=== PATIENT | female | born 1950 | race Caucasian/White ===

== ENCOUNTER 2023-04-30 08:55 | Outpatient (OUT) | payer MEDICARE, OTHER, SELFPAY ==
--- NOTE | 2023-04-30 | MM_ITS ---
Patient Name: JOSE ALBERTO RAO MR#: [id number] : 1950 Exam Date: 04/30/2023 Ordering Doctor: DR Jaqueline Sierra M.D. RADIOLOGY REPORT PROCEDURE: MM TOMOSYNTHESIS SCREENING BI COMPARISON: MG MAMM SCREEN 3D [place] CAD, 09/24/2020. MG MAMM SCREEN [place] W CAD, 04/19/2018. MG MAMM [place] SCRN W CAD DIG, 07/05/2015. MG MAMM [place] SCRN W CAD DIG, 08/10/2013. INDICATIONS: Screening for malignant neoplasm Calculator Name NCI Breast Cancer Risk Assessment Tool 5 Year Breast Cancer Risk 1.30% Lifetime Breast Cancer Risk 3.00% Personal Breast Cancer No Personal Ovarian Cancer No Treatments None Family Cancers None LOCATION: [facility] BREAST COMPOSITION: Heterogeneously dense,which may obscure small masses. FINDINGS: DIAGNOSTIC CATEGORY 2--BENIGN FINDING: RIGHT BREAST: No significant suspicious finding. Scattered benign-appearing calcifications are present. No significant change has occurred. LEFT BREAST: No significant suspicious finding. Scattered benign-appearing calcifications are present. No significant change has occurred. RECOMMENDATIONS: ROUTINE MAMMOGRAM AND CLINICAL EVALUATION IN 12 MONTHS. PLEASE NOTE: A NORMAL MAMMOGRAM DOES NOT EXCLUDE THE POSSIBILITY OF BREAST CANCER. A CLINICALLY SUSPICIOUS PALPABLE LUMP SHOULD BE BIOPSIED. Dictated by: Waqar Phipps M.D. on 04/30/2023 at 11:56 Approved by: Waqar Phipps M.D. on 04/30/2023 at 12:00
== END 2023-04-30 08:56 | disposition home or self-care (01) ==
LOC: MAMMO 08:55
PROVIDERS: PCP Family Medicine; Visit Provider Family Medicine
DX: Z12.31 Encounter for screening mammogram for malignant neoplasm of breast (principal)
CPT/HCPCS: 77063; 77067

== ENCOUNTER 2024-12-06 10:25 | Outpatient (OUT) | payer MEDICARE, OTHER, SELFPAY ==
[2024-12-06 10:45] LABS: Hematocrit 36.4 % (36.0-48.0); Hemoglobin 12.6 g/dL (12.0-16.0); Mean Corpuscular HGB Conc 34.6 g/dL (29.9-35.2); Mean Corpuscular Hemoglobin 32.7 pg (26.7-34.0); Mean Corpuscular Volume 94.5 fL (81.0-99.0); Mean Platelet Volume 10.3 fL (9.5-13.5); Platelet Count 176 10^3/uL (150-450); Red Blood Count 3.85 10^6/uL (4.20-5.40); Red Cell Distribution Width 12.5 % (11.0-15.0); White Blood Count 12.9 10^3/uL (4.0-11.0)
--- OUTSIDE RECORDS SUMMARY | 2024-12-06 10:49 | XMS_ITS | CCD ---
Author Organization [facility] Care Team Providers Care Etcher Enameling Name Role Phone Jaqueline Charles MD Primary Care Provider MELVIN, DR JAQUELINE Lucas Consulting Unavailable CHARLES, DR JAQUELINE Lucas Primary Care Unavailable MELVIN, DR JAQUELINE Lucas Admitting Unavailable CHARLES, DR JAQUELINE Lucas Attending Unavailable YEHUDA REYES Consulting Unavailable MELVIN, DR JAQUELINE Lucas Primary Care Unavailable MELVIN, DR JAQUELINE Lucas Admitting Unavailable CHARLES, DR JAQUELINE Lucas Attending Unavailable CHARLES, DR JAQUELINE Lucas Consulting Unavailable MELVIN, DR JAQUELINE Lucas Primary Care Unavailable CHARLES, DR JAQUELINE Lucas Admitting Unavailable ZIJARED, DR PACO Leigh Consulting Unavailable MELVIN, DR JAQUELINE Lucas Attending Unavailable MELVIN, DR JAQUELINE Lucas Consulting Unavailable Jaqueline Charles Unavailable Jaqueline Charles MD Primary Care Provider SHANNA VICENTE Attending Unavailable JAQUELINE CHARLES Primary Care Unavailable JAQUELINE CHARLES Primary Care Unavailable Jaqueline Charles MD Primary Care Provider LEW ALEXANDER Referring Unavailable LEW ALEXANDER Attending Unavailable Corky CASTRO Attending Unavailable Allergies Allergy Classification Reported Allergen(s) Allergy Type Date of Onset Reaction(s) Facility (12 sources) Fish; Translations: [FISH CONTAINING PRODUCTS] Propensity to adverse reactions to drug 2 Unknown [facility] (7 sources) Penicillin V; Translations: [PENICILLIN V] Drug Allergy 2 Unknown [facility] (9 sources) Iodine; Translations: [IODINE] Drug Allergy 4 Unknown [facility] (1 source) Iodine Drug Allergy 4 [facility] Repository (1 source) Penicillins Drug allergy (disorder) 4 [facility] (6 sources) Penicillin; Translations: [Penicillin] Drug Allergy Unknown [facility] Repository (2 sources) Fish - dietary Propensity to adverse reactions 2 [facility] (2 sources) Penicillin G Drug Allergy 4 Hives [facility] (1 source) Fish - dietary; Translations: [Fish] Propensity to adverse reactions (disorder) [facility] Repository Medications Current Medications Medication Drug Class(es) Dates Sig (Normalized) Sig (Original) aspirin 81 mg delayed release oral tablet (2 sources) Platelet Aggregation Inhibitor, Nonsteroidal Anti-inflammatory Drug take 1 tablet by mouth once daily aspirin 81 MG EC tablet Take 81 mg by mouth 1 (one) time each day at the same time Active clindamycin 300 mg oral capsule (6 sources) Lincosamide Antibacterial Start: 07-05-2024 End: 07-12-2024 clindamycin (Cleocin) 300 MG capsule Indications: History of total left hip replacement Take 1 capsule (300 mg) by mouth in the morning and 1 capsule (300 mg) at noon and 1 capsule (300 mg) in the evening and 1 capsule (300 mg) before bedtime. Do all this for 7 days. 28 capsule 07/05/2024 07/12/2024 Active Start: 07-05-2024 End: 07-05-2024 take 2 capsules by mouth once, then take 1 capsule by mouth once at mealtime clindamycin (Cleocin) 300 MG capsule Indications: History of total left hip replacement Take 2 capsules (600 mg) by mouth 1 time for 1 dose 2 tabs PO once 30-60 mins before dental procedure with food 2 capsule 4 07/05/2024 07/05/2024 Active Start: 07-02-2023 clindamycin (C leocin) 300 MG capsule Indications: History of total left hip replacement Take two caps one prior to appointment 2 capsule 2 07/02/2023 Active losartan potassium 25 mg oral tablet (12 sources) Angiotensin 2 Receptor Tosin Start: 05-24-2022 take 1 tablet by mouth once daily losartan (COZAAR) 25 mg tablet Take 25 mg by mouth once daily. 05/24/2022 Active Comment on above: Take 25 mg by mouth once daily. 24 hr metoprolol succinate 50 mg extended release oral tablet (12 sources) beta-Adrenergic Tosin Start: 05-23-2023 take 1 tablet by mouth every twenty-four hours in the morning metoprolol succinate XL (Toprol-XL) 50 MG 24 hr tablet Take 50 mg by mouth in the morning. 05/23/2023 Active Start: 05-24-2022 take 1 tablet by abram th once daily metoprolol succinate ER (TOPROL XL) 50 mg 24 hr tablet Take 50 mg by mouth once daily. 05/24/2022 Active Comment on above: Take 50 mg by mouth once daily. predniSONE 20 mg oral tablet (5 sources) Start: 08-07-19 23 take 2 tablets by mouth every twenty-four hours predniSONE 20 MG 2 tablets Orally Once a day for 5 days Jul, Active sulfamethoxazole 800 mg / trimethoprim 160 mg oral tablet (5 sources) Dihydrofolate Reductase Inhibitor Antibacterial, Sulfonamide Antimicrobial take 1 tablet by mouth every twelve hours Sulfamethoxazole- Trimethoprim 800-160 MG 1 tablet Orally Twice a day Active Completed/Discontinued Medications Medication Drug Class(es) Dates Sig (Normalized) Sig (Original) fluticasone (2 sources) Corticosteroid End: 08-26-2022 fluticasone propionate (FLONASE NASAL) Use in the nose. 0 08/26/2022 Discontinued (Discontinued by Patient) fluticasone prop ionate (FLONASE NASAL) Use in the nose. 0 Active Comment on above: Use in the nose. tiZANidine 2 mg oral tablet (7 sources) Central alpha-2 Adrenergic Agonist Start: 2 End: 3 take 1 tablet by mouth once daily at bedtime tiZANidine (ZANAFLEX) 2 mg tablet Take 2 mg by mouth daily at bedtime. 0 05/27/2022 08/26/2022 Discontinued (Discontinued by Patient) take 1 tablet by mouth every eig ht hours tiZANidine HCl 2 MG 1 tablet as needed Orally Three times a day Active Comment on above: Take 2 mg by mouth d aily at bedtime. 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)] Chronic Diverticulosis and diverticulitis (5 sources) Diverticulitis; Translations: [Diverticulitis of intestine, part unspecified, without perforation or abscess without bleeding] Chronic Essential hypertension (9 sources) Essential (primary) hypertension; Translations: [Essential hypertension] Onset: 05-27-2022 Chronic Osteoarthritis (5 sources) Arthritis of left hip; Translations: [Unilateral primary osteoarthritis, left hip] Chronic Other connective tissue disease (2 sources) History of total replacement of left hip joint; Translations: [Presence of left artificial hip joint] 07-04-2024 Chronic Other connective tissue disease (5 sources) Spasm; Translations: [Other muscle spasm] Episodic Other screening for suspected conditions (not mental disorders or infectious disease) (10 sources) Full blood count abnormal; Translations: [Other specified abnormal findings of blood chemistry] Episodic Residual codes; unclassified (5 sources) Other contact with and (suspected) exposures hazardous to health; Translations: [Other contact with and (suspected) exposures hazardous to health] Episodic Spondylosis; intervertebral disc disorders; other back problems (10 sources) Other intervertebral disc degeneration, lumbar region; Translations: [Degeneration of lumbar intervertebral disc] Onset: 08-14-2022 Chronic Spondylosis; intervertebral disc disorders; other back problems (12 sources) Cervicalgia; Translations: [Sciatica, left side] Onset: 08-07-2022 Episodic Results Test Name Value Interpretation Reference Range Facility XR Hip - left 3 [facility] 06-22 Imaging Result: Xrays taken in the office today saved to the permanent record, AP and lateral weightbearing films, show stable position and alignment of the FORTINO prosthesis. No sign of loosening, fracture or infection. [facility] Rad[facility] Study observation (narrative) [facility] CBC W Auto Differential pane l (Bld)on 03-17-2024 Basophils (Bld) [#/Vol] 0.00 10*3/uL Normal <0.11 [facility] Comment on above: Order Comment: Speci men Type: BLOOD SPECIMEN Ordering Facility: Address: [address] [place] [address] Performed By: #### 5 7021-8 #### [facility] CLIA [id number] [address] [place] [address] [facility] CLIA [id number] [address] [place] [address] [place] [address] [place] Basophils/100 WBC (Bld) 0.0 % Normal [facility] Comment on above: Order Comment: Speci men Type: BLOOD SPECIMEN Ordering Facility: Address: [address] [place] [address] Performed By: #### 5 7021-8 #### [facility] CLIA [id number] [address] [place] [address] LAB CLIA [id number] [address] [place] [address] [place] Differential cell count method Nom (Bld) Manual Normal [facility] Comment on above: Order Comment: Speci men Type: BLOOD SPECIMEN Ordering Facility: Address: [address] [place] [address] Performed By: #### 5 7021-8 #### [facility] CLIA [id number] [address] [place] [address] LAB CLIA [id number] [address] [place] [address] [place] Eosinophils (Bld) [#/Vol] 0.00 10*3/uL Normal <0.46 [facility] Comment on above: Order Comment: Speci men Type: BLOOD SPECIMEN Ordering Facility: Address: [address] [place] [address] Performed By: #### 5 7021-8 #### [facility] CLIA [id number] [address] [place] [address] LAB CLIA [id number] [address] [place] [address] [place] Eosinophils/100 WBC (Bld) 0.0 % Normal [facility] Comment on above: Order Comment: Speci men Type: BLOOD SPECIMEN Ordering Facility: Address: [address] [place] [address] Performed By: #### 5 7021-8 #### [facility] CLIA [id number] [address] [place] [address] LAB CLIA [id number] [address] [place], [place] [id number] [place] Erythrocyte distribution width (RBC) [Ratio] 12.5 % Normal 11.5-15.0 [facility] Comment on above: Order Comment: Speci men Type: BLOOD SPECIMEN Ordering Facility: Address: [address] [place] [address] Performed By: #### 5 7021-8 #### [facility] CLIA [id number] [address] [place] [address] LAB CLIA [id number] [address] [place] [address] [place] Hematocrit (Bld) [Volume fraction] 37.7 % Normal 36.0-46.0 [facility] Comment on above: Order Comment: Speci men Type: BLOOD SPECIMEN Ordering Facility: Address: [address] [place] [address] Performed By: #### 5 7021-8 #### [facility] CLIA [id number] [address] [place] [address] LAB CLIA [id number] [address] [place] [address] [place] Hemoglobin (Bld) [Mass/Vol] 12.9 g/dL Normal 11.5-15.5 [facility] Comment on above: Order Comment: Speci men Type: BLOOD SPECIMEN Ordering Facility: Address: [address] [place] [address] Performed By: #### 5 7021-8 #### [facility] CLIA [id number] [address] [place] [address] LAB CLIA [id number] [address] [place] [address] [place] Lymphocytes (Bld) [#/Vol] 9.95 10*3/uL High 1.00-4.00 [facility] Comment on above: Order Comment: Speci men Type: BLOOD SPECIMEN Ordering Facility: Address: [address] [place] [address] Performed By: #### 5 7021-8 #### [facility] CLIA [id number] [address] [place] [address] LAB CLIA [id number] [address] [place] [address] [place] Lymphocytes/100 WBC (Bld) 71.0 % Normal [facility] Comment on above: Order Comment: Speci men Type: BLOOD SPECIMEN Ordering Facility: Address: [address] [place] [address] Performed By: #### 5 7021-8 #### [facility] CLIA [id number] [address] [place] [address] LAB CLIA [id number] [address] [place] [address] [place] MCH (RBC) [Entitic mass] 31.9 pg Normal 26.0-34.0 [facility] Comment on above: Order Comment: Speci men Type: BLOOD SPECIMEN Ordering Facility: Address: [address] [place] [address] Performed By: #### 5 7021-8 #### [facility] CLIA [id number] [address] [place] [address] LAB CLIA [id number] [address] [place] [address] [place] MCHC (RBC) [Mass/Vol] 34.2 g/dL Normal 30.5-36.0 [facility] Comment on above: Order Comment: Speci men Type: BLOOD SPECIMEN Ordering Facility: Address: [address] [place] [address] Performed By: #### 5 7021-8 #### [facility] CLIA [id number] [address] [place] [address] LAB CLIA [id number] [address] [place] [address] [place] MCV (RBC) [Entitic vol] 93.1 fL Normal 80.0-100.0 [facility] Comment on above: Order Comment: Speci men Type: BLOOD SPECIMEN Ordering Facility: Address: [address] [place] [address] Performed By: #### 5 7021-8 #### [facility] CLIA [id number] [address] [place] [address] LAB CLIA [id number] [address] [place] [address] [place] Monocytes (Bld) [#/Vol] 0.56 10*3/uL Normal <0.87 [facility] Comment on above: Order Comment: Speci men Type: BLOOD SPECIMEN Ordering Facility: Address: [address] [place] [address] Performed By: #### 5 7021-8 #### [facility] CLIA [id number] [address] [place] [address] LAB CLIA [id number] [address] [place] [address] [place] Monocytes/100 WBC (Bld) 4.0 % Normal [facility] Comment on above: Order Comment: Speci men Type: BLOOD SPECIMEN Ordering Facility: Address: [address] [place] [address] Performed By: #### 5 7021-8 #### [facility] CLIA [id number] [address] [place] [address] LAB CLIA [id number] [address] [place] [address] [place] Neutrophils (Bld) [#/Vol] 3.51 10*3/uL Normal 1.45-7.50 [facility] Comment on above: Order Comment: Speci men Type: BLOOD SPECIMEN Ordering Facility: Address: [address] [place] [address] Performed By: #### 5 7021-8 #### [facility] CLIA [id number] [address] [place] [address] LAB CLIA [id number] [address] [place] [address] [place] Neutrophils/100 WBC (Bld) 25.0 % Normal [facility] Comment on above: Order Comment: Speci men Type: BLOOD SPECIMEN Ordering Facility: Address: [address] [place] [address] Performed By: #### 5 7021-8 #### [facility] CLIA [id number] [address] [place] [address] LAB CLIA [id number] [address] [place] [address] [place] Nucleated RBC (Bld) [#/Vol] 10*3/uL Normal <0.01 [facility] Comment on above: Order Comment: Speci men Type: BLOOD SPECIMEN Ordering Facility: Address: [address] [place] [address] Performed By: #### 5 7021-8 #### [facility] CLIA [id number] [address] [place] [address] LAB CLIA [id number] [address] [place] [address] [place] Nucleated RBC/100 WBC (Bld) [Ratio] 0.0 /100 WBC Normal [facility] Comment on above: Order Comment: Speci men Type: BLOOD SPECIMEN Ordering Facility: Address: [address] [place] [address] Performed By: #### 5 7021-8 #### [facility] CLIA [id number] [address] [place] [address] LAB CLIA [id number] [address] [place] [address] [place] Ovalocytes LM Ql (Bld) Few Normal [facility] Comment on above: Order Comment: Speci men Type: BLOOD SPECIMEN Ordering Facility: Address: [address] [place] [address] Performed By: #### 5 7021-8 #### [facility] CLIA [id number] [address] [place] [address] LAB CLIA [id number] [address] [place] [address] [place] Platelet mean volume (Bld) [Entitic vol] 10.2 fL Normal 9.0-12.7 [facility] Comment on above: Order Comment: Speci men Type: BLOOD SPECIMEN Ordering Facility: Address: [address] [place] [address] Performed By: #### 5 7021-8 #### [facility] CLIA [id number] [address] [place] [address] LAB CLIA [id number] [address] [place] [address] [place] Platelets (Bld) [#/Vol] 184 10*3/uL Normal 150-400 [facility] Comment on above: Order Comment: Speci men Type: BLOOD SPECIMEN Ordering Facility: Address: [address] [place] [address] Performed By: #### 5 7021-8 #### [facility] CLIA [id number] [address] [place] [address] LAB CLIA [id number] [address] [place] [address] [place] Platelets Estimate (Bld) [#/Vol] Adequate Normal [facility] Comment on above: Order Comment: Speci men Type: BLOOD SPECIMEN Ordering Facility: Address: [address] [place] [address] Performed By: #### 5 7021-8 #### [facility] CLIA [id number] [address] [place] [address] LAB CLIA [id number] [address] [place] [address] [place] RBC (Bld) [#/Vol] 4.05 10*6/uL Normal 3.90-5.20 [facility] Comment on above: Order Comment: Speci men Type: BLOOD SPECIMEN Ordering Facility: Address: [address] [place] [address] Performed By: #### 5 7021-8 #### [facility] CLIA [id number] [address] [place] [address] LAB CLIA [id number] [address] [place] [address] [place] RED CELL MORPH Reviewed: see result s of individual morphologies Normal [facility] Comment on above: Order Comment: Speci men Type: BLOOD SPECIMEN Ordering Facility: Address: [address] [place] [address] Performed By: #### 5 7021-8 #### [facility] CLIA [id number] [address] [place] [address] LAB CLIA [id number] [address] [place] [address] [place] WBC (Bld) [#/Vol] 14.02 10*3/uL High 3.70-11.00 [facility] Comment on above: Order Comment: Speci men Type: BLOOD SPECIMEN Ordering Facility: Address: [address] [place] [address] Performed By: #### 5 7021-8 #### [facility] CLIA [id number] [address] [place] [address] LAB CLIA [id number] [address] [place] [address] [place] CNOVSPon 03-17-2024 CNOVSP Visit (SP) Office ([facility]) MOIRA GODINEZ ([id number]) 1950 F Date Time Provider Department 03/17/24 10:00 AM SHANNA VICENTE During your visit today, we recorded the following information about you: Temperature Pulse Respiration Blood pressure 97.8 degrees 74/minute 16/minute 161/83 Weight 74.4 kg Shanna Vicente MD 03/17/2024 10:36 AM Signed PATIENT NAME: Moira Godinez CLINIC NO.: [id number] ATTENDING PHYSICIAN: Shanna Vicente MD DATE OF SERVICE: March 17, 2024. Dear Dr. Mcdonald referring provider defined for this encounter. here is an update on a follow up visit on female Moira Godinez at the clinic 03/17/24. Diagnosis: MLUS Treatment History: HPI: Moira Godinez is a 72 year old year old female here for follow up. Doing well and no complaints Updated visit 03/17/24: Doing well No major complaints Last mammo in Jun 2023. No B symptoms. PAST MEDICAL HISTORY Diagnosis Date Abnormal CBC Anxiety Arthritis Cervical paraspinal muscle spasm Chronic sinusitis Diverticulitis Hypercalcemia Hypertension Social History Tobacco Use Smoking status: Never Passive exposure: Past Smokeless tobacco: Never Vaping Use Vaping status: Never Used Substance Use Topics Alcohol use: Not Currently Drug use: Never FAMILY HISTORY Problem Relation Age of Onset Hypertension Father other (Hypercholesterolemia ) Father Coronary Artery Disease Father Past medical, social and family history reviewed without any changes. REVIEW OF SYSTEMS GENERAL: No weight loss, malaise or fevers. No night sweats. HEENT: Negative for headaches, No changes in hearing or vision, no nose bleeds or other nasal problems. RESPIRATORY: Negative for cough, wheezing and shortness of breath CARDIOVASCULAR: Negative for chest pain, leg swelling and palpitations GI: Negative for abdominal discomfort, blood in stools or black stools and change in bowel habits : Negative for dysuria, frequency and incontinence MUSCULOSKELETAL: Negative for joint pain or swelling, back pain, and muscle pain. SKIN: Negative for lesions, rash, and itching. HEMATOLOGY/LYMPHOLOGY Negative for prolonged bleeding, bruising easily, and swollen nodes. NEURO: Negative for numbness or tingling of hands/feet. No weakness. PHYSICAL EXAMINATION: BP 161/83 Pulse 74 Temp (Src) 97.8 (Temporal) Resp 16 Wt 164 lb 0.4 oz (74.4kg) SpO2 97% There were no vitals taken for this visit. Last 3 Encounter Wt Readings: Date: Wt: 08/26/2022 72.5 kg (159 lb 12.8 oz) 06/24/2022 70.7 kg (155 lb 12.8 oz) General appearance:ECOG PERFORMANCE STATUS: 0- Fully active, able to carry on all pre-disease performance w/o restriction. Patient in NAD. Skin: Skin color, texture, turgor normal. No rashes or lesions. Eyes: Anicteric sclera. Pupils are equally round and reactive to light. Extraocular movements are intact. Lymph Nodes: No cervical, supraclavicular, axillary or inguinal adenopathy. Oropharynx: Lips, mucosa, and tongue normal. Back: No pain to percussion. Negative SLR test Lungs clear to auscultation, No wheezing or rhonchi Heart: RRR without murmur, gallop, or rubs. Abdomen soft, non-tender. No masses, organomegaly Extremities: No deformities. No edema Neuro: Gait and speech normal. Reflexes normal and symmetric. Muscular strength intact. Sensation grossly intact. Rectal: Deferred : Deferred LABS: Glucose (mg/dL) Date Value 03/06/2023 131 Potassium (mmol/L) Date Value 03/06/2023 4.1 Sodium (mmol/L) Date Value 03/06/2023 140 Chloride (mmol/L) Date Value 03/06/2023 102 CO2 (mmol/L) Date Value 03/06/2023 29 Creatinine (mg/dL) Date Value 03/06/2023 0.64 BUN (mg/dL) Date Value 03/06/2023 11 Anion Gap (mmol/L) Date Value 03/06/2023 9 Calcium, Total (mg/dL) Date Value 03/06/2023 9.8 Protein, Total (g/dL) Date Value 03/06/2023 6.6 Albumin (g/dL) Date Value 03/06/2023 4.3 Bilirubin, Total (mg/dL) Date Value 03/06/2023 0.2 Alkaline Phosphatase (U/L) Date Value 03/06/2023 162 AST (U/L) Date Value 03/06/2023 27 ALT (U/L) Date Value 03/06/2023 15 WBC Date Value Ref Range Status 03/17/2024 14.02 (H) 3.70 - 11.00 k/uL Preliminary RBC Date Value Ref Range Status 03/17/2024 4.05 3.90 - 5.20 m/uL Preliminary Hemoglobin Date Value Ref Range Status 03/17/2024 12.9 11.5 - 15.5 g/dL Preliminary Hematocrit Date Value Ref Range Status 03/17/2024 37.7 36.0 - 46.0 % Preliminary MCV Date Value Ref Range Status 03/17/2024 93.1 80.0 - 100.0 fL Preliminary MCH Date Value Ref Range Status 03/17/2024 31.9 26.0 - 34.0 pg Preliminary MCHC Date Value Ref Range Status 03/17/2024 34.2 30.5 - 36.0 g/dL Preliminary RDW-CV Date Value Ref Range Status 03/17/2024 12.5 11.5 - 15.0 % Preliminary Platelet C (more content not included)... Normal [facility] Comprehensive metabolic 2000 panelon 03-17-2024 Albumin [Mass/Vol] 4.8 g/dL Normal 3.9-4.9 [facility] Comment on above: Order Comment: Speci men Type: BLOOD SPECIMEN Ordering Facility: Address: [address] [place] [address] Performed By: #### 2 4323-8 #### [facility] CLIA [id number] [address] [place] [address] ALP [Catalytic activity/Vol] 152 U/L High 34-123 [facility] Comment on above: Order Comment: Speci men Type: BLOOD SPECIMEN Ordering Facility: Address: [address] [place], [place] [id number] Performed By: #### 2 4323-8 #### [facility] CLIA [id number] [address] [place] [address] ALT [Catalytic activity/Vol] 15 U/L Normal 7-38 [facility] Comment on above: Order Comment: Speci men Type: BLOOD SPECIMEN Ordering Facility: Address: [address] [place] [address] Performed By: #### 2 4323-8 #### [facility] CLIA [id number] [address] [place] [address] Anion gap [Moles/Vol] 12 mmol/L Normal 8-15 [facility] Comment on above: Order Comment: Speci men Type: BLOOD SPECIMEN Ordering Facility: Address: [address] [place] [address] Performed By: #### 2 4323-8 #### [facility] CLIA [id number] [address] [place] [address] AST [Catalytic activity/Vol] 30 U/L Normal 13-35 [facility] Comment on above: Order Comment: Speci men Type: BLOOD SPECIMEN Ordering Facility: Address: [address] [place] [address] Performed By: #### 2 4323-8 #### [facility] CLIA [id number] [address] [place] [address] Bilirubin [Mass/Vol] 0.3 mg/dL Normal 0.2-1.3 [facility] Comment on above: Order Comment: Speci men Type: BLOOD SPECIMEN Ordering Facility: Address: [address] [place] [address] Performed By: #### 2 4323-8 #### [facility] CLIA [id number] [address] [place] [address] Calcium [Mass/Vol] 10.1 mg/dL Normal 8.5-10.2 [facility] Comment on above: Order Comment: Speci men Type: BLOOD SPECIMEN Ordering Facility: Address: [address] [place] [address] Performed By: #### 2 4323-8 #### [facility] CLIA [id number] [address] [place] [address] Chloride [Moles/Vol] 106 mmol/L Normal 98-107 [facility] Comment on above: Order Comment: Speci men Type: BLOOD SPECIMEN Ordering Facility: Address: [address] [place] [address] Performed By: #### 2 4323-8 #### [facility] CLIA [id number] [address] [place] [address] CO2 [Moles/Vol] 26 mmol/L Normal 22-30 [facility] Comment on above: Order Comment: Speci men Type: BLOOD SPECIMEN Ordering Facility: Address: [address] [place] [address] Performed By: #### 2 4323-8 #### [facility] CLIA [id number] [address] [place] [address] Creatinine [Mass/Vol] 0.61 mg/dL Normal 0.58-0.96 [facility] Comment on above: Order Comment: Speci men Type: BLOOD SPECIMEN Ordering Facility: Address: [address] [place] [address] Performed By: #### 2 4323-8 #### [facility] CLIA [id number] [address] [place] [address] Creatinine and Glomerular filtration rate.predicted panel (S/P/Bld) 94 mL/min/1.73m??? Normal >=60 [facility] Comment on above: Order Comment: Speci men Type: BLOOD SPECIMEN Ordering Facility: Address: [address] [place] [address] Result Comment: Isabel mated Glomerular Filtration Rate (eGFR) is calculated using the 2020 CKD-EPI creatinine equation. This equation utilizes serum creatinine, sex, and age as parameters. The creatinine assay has traceable calibration to isotope dilution-mass spectrometry. Refer to KDIGO guidelines for clinical interpretation. In patients with unstable renal function, e.g. those with acute kidney injury, the eGFR may not accurately reflect actual GFR. Performed By: #### 2 4323-8 #### [facility] CLIA [id number] [address] [place] [address] Glucose [Mass/Vol] 116 mg/dL High 74-99 [facility] Comment on above: Order Comment: Khang nunes Type: BLOOD SPECIMEN Ordering Facility: Address: [address] [place], [place] [address] Result Comment: The [place] Diabetes Association (ADA) provides guidance for cutoff values for fasting glucose and random glucose. The ADA defines fasting as no caloric intake for at least 8 hours. Fasting plasma glucose results between 100 to 125 mg/dL indicate increased risk for diabetes (prediabetes). Fasting plasma glucose results greater than or equal to 126 mg/dL meet the criteria for diagnosis of diabetes. In the absence of unequivocal hyperglycemia, results should be confirmed by repeat testing. In a patient with classic symptoms of hyperglycemia or hyperglycemic crisis, random plasma glucose results greater than or equal to 200 mg/dL meet the criteria for diagnosis of diabetes. Reference: Standards of Medical Care in Diabetes 2016, [place] [employer]. Diabetes Care. 2016.39(Suppl 1). Performed By: #### 2 4323-8 #### [facility] CLIA [id number] [address] [place] [address] Potassium [Moles/Vol] 4.5 mmol/L Normal 3.7-5.1 [facility] Comment on above: Order Comment: Khang nunes Type: BLOOD SPECIMEN Ordering Facility: Address: [address] [place] [address] Performed By: #### 2 4323-8 #### [facility] CLIA [id number] [address] [place] [address] Protein [Mass/Vol] 7.3 g/dL Normal 6.3-8.0 [facility] Comment on above: Order Comment: Khang nunes Type: BLOOD SPECIMEN Ordering Facility: Address: [address] [place], [place] [address] Performed By: #### 2 4323-8 #### [facility] CLIA [id number] [address] [place] [address] Sodium [Moles/Vol] 144 mmol/L Normal 136-144 [facility] Comment on above: Order Comment: Khang nunes Type: BLOOD SPECIMEN Ordering Facility: Address: [address] [place] [address] Performed By: #### 2 4323-8 #### [facility] CLIA [id number] [address] [place] [address] Urea nitrogen [Mass/Vol] 13 mg/dL Normal 7-21 [facility] Comment on above: Order Comment: Khang nunes Type: BLOOD SPECIMEN Ordering Facility: Address: [address] [place], [place] [address] [place] [address] Performed By: #### 2 4323-8 #### [facility] CLIA [id number] [address] [place] [address] CNPNon 03-14-2024 CNPN Telephone (HEMASA) MOIRA GODINEZ ([id number]) 1950 F Date Time Provider Department 03/14/24 BRIANNA RATLIFF HEMASA During your visit today, we recorded the following information about you: Brianna Ratliff RN 03/14/2024 10:50 AM Signed Labs pending if you agree. 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 - metoprolol succinate ER (TOPROL XL) 50 mg 24 hr tablet Take 50 mg by mouth once daily. Problem List As Of Date: 03/14/2024 (None) Encounter Status:Closed by BRIANNA RATLIFF on 03/15/24 Normal [facility] MRI [place] WO CONon 08-14-19 MRI [place] WO CON EXAMINATION: MRI [place] WO CON HISTORY: Degeneration of lumbar intervertebral disc. Chronic lumbar pain, left-sided radiculopathy for 3 months. No known injury. COMPARISON: Lumbar radiograph 08/07/2022. TECHNIQUE: Multiplanar, multisequence MRI images of the lumbar spine were obtained without contrast. FINDINGS: Straightening of the lumbar spine. No subluxation. Moderate to severe disc space narrowing throughout the lumbar spine. Modic type I edema at L5-S1. Conus medullaris terminates at L1. No abnormal signal in the distal spinal cord and conus. L5-S1: Disc bulge, with a superimposed left foraminal disc protrusion. Moderate bilateral facet arthropathy and ligamentum flavum hypertrophy. There is no significant central spinal canal stenosis. Mild right and asymmetric moderate left foraminal stenosis. L4-L5: Broad-based disc protrusion, severe right and moderate left facet arthropathy. Moderate central spinal canal and bilateral lateral recess stenosis. Moderate right and mild left foraminal stenosis. L3-L4: Broad-based disc protrusion, severe facet arthropathy, and ligamentum flavum hypertrophy. Severe spinal canal and bilateral lateral recess stenosis. Moderate to severe right and mild left foraminal stenosis. L2-L3: Broad-based disc protrusion, severe facet arthropathy, and ligamentum flavum hypertrophy. Severe spinal canal and bilateral lateral recess stenosis. Moderate bilateral foraminal stenosis. T12-L1 and L1-L2: No stenosis. IMPRESSION: 1. Moderate to severe multilevel degenerative disc disease and facet joint arthropathy in the lumbar spine. 2. There is severe central spinal canal stenosis at L2-L3 and L3-L4 and moderate central spinal canal stenosis at L4-L5. There are several levels of foraminal stenosis as described. Electronically authenticated by: YEHUDA REYES Date: 2022-08-14 16:57 Normal [facility] XR CSPINE 2_3 VIEWSon 2022 XR CSPINE 2_3 VIEWS EXAMINATION: XR CSPINE 2_3 VIEWS HISTORY: Neck pain COMPARISON: No relevant comparison available. FINDINGS: BONES: Osseous fusion of C3 on 4. Bodies and posterior elements, suspected be congenital. Multilevel moderate degenerative facet arthropathy. No fracture or spondylolisthesis. DISC SPACES: Moderate narrowing at all cervical levels. PARASPINOUS: Negative. No paraspinous abnormality is seen. OTHER: Negative. IMPRESSION: 1. Moderate marked degenerative changes throughout the cervical spine. 2. Congenital fusion of C3-C4. Electronically authenticated by: PACO KANG Date: 2022-08-08 09:35 Normal [facility] XR LSPINE 2_3 VIEWSon 2022 XR LSPINE 2_3 VIEWS EXAMINATION: XR LSPINE 2_3 VIEWS HISTORY: Left side sciatica ; lumbar pain radiating into left leg; no known injury COMPARISON: No relevant comparison available. FINDINGS: BONES: Straightening of normal lordotic curvature and development of mild scoliotic curvature of lumbar spine. Mild grade 1 anterior listhesis of L3 on 4. Marked degenerative facet arthropathy L3-L4 through L5-S1. No fracture or bone lesion. DISC SPACES: Mild-moderate narrowing at all lumbar levels. PARASPINOUS: Negative. No paraspinous abnormality is seen. OTHER: Prior left hip replacement. Degenerative changes of the left sacroiliac joint. IMPRESSION: 1. Overall moderate-marked degenerative changes of lumbar spine. Consider MRI for further evaluation. 2. Sclerotic degenerative changes of left sacroiliac joint. Electronically authenticated by: PACO KANG Date: 2022-08-08 09:31 Normal [facility] CBC W MANUAL DIFFon 05-27-20 22 ATYPICAL LYMPH # 1.09 103/ul Normal [facility] Comment on above: Performed By: #### C EUGENE #### [facility] [address] [address] [address] Brennen Barton ATYPICAL LYMPH % 11 % Normal [facility] Comment on above: Performed By: #### C EUGENE #### [facility] [address] [place] [address] Dr. Brennen Barton BAND # Normal 0.0-0.3 [facility] Comment on above: Performed By: #### C BCGAVI #### [facility] [address] [place] [address] Dr. Brennen Barton BAND % Normal 0-5 [facility] Comment on above: Performed By: #### C EUGENE #### [facility] [address] [place] [address] Dr. Brennen Barton BASOM # 0.00 103/ul Normal 0.00-0.10 [facility] Comment on above: Performed By: #### C EUGENE #### [facility] [address] [place] [address] Dr. Brennen Barton BASOM % 0.0 % Critically low 0.2-2.0 [facility] Comment on above: Performed By: #### C EUGENE #### [facility] [address] [place] [address] Dr. Brennen Barton BLAST # Normal [facility] Comment on above: Performed By: #### C EUGENE #### [facility] [address] [place] [address] Dr. Brennen Barton BLAST % Normal [facility] Comment on above: Performed By: #### C EUGENE #### [facility] [address] [place] [address] Dr. Brennen Barton CORRECTED WBC Normal 4.0-11.[address] [facility] Comment on above: Performed By: #### C EUGENE #### [facility] [address] [place] [address] Dr. Brennen Barton EOS # 0.20 103/ul Normal 0.00-0.70 [facility] Comment on above: Performed By: #### C EUGENE #### [facility] [address] [place] [address] Dr. Brennen Barton EOS% 2.0 % Normal 0.9-7.0 [facility] Comment on above: Performed By: #### C EUGENE #### [facility] [address] [place] [address] Dr. Brennen Barton HCT 37.9 % Normal 36.0-48.0 [facility] Comment on above: Performed By: #### C EUGENE #### [facility] [address] [address] [address] Brennen Barton HGB 12.8 g/dl Normal 12.0-16.0 [facility] Comment on above: Performed By: #### C EUGENE #### [facility] [address] [address] [address] Brennen Barton LYMPHM # 4.06 103/ul Critically high 1.20-3.80 [facility] Comment on above: Performed By: #### C EUGENE #### [facility] [address] [address] [address] Brennen Barton LYMPHM% 41.0 % Normal 20.5-60.0 [facility] Comment on above: Performed By: #### C EUGENE #### [facility] [address] [address] [address] Brennen Barton MCH 31.4 pg Normal 26.7-34.0 [facility] Comment on above: Performed By: #### C EUGENE #### [facility] [address] [address] [address] Brennen Barton MCHC 33.8 g/dl Normal 29.9-35.2 [facility] Comment on above: Performed By: #### C EUGENE #### [facility] [address] [address] [address] Brennen Barton MCV 92.9 fL Normal 81.0-99.0 [facility] Comment on above: Performed By: #### C EUGENE #### [facility] [address] [address] [address] Brennen Barton METAMYELOCYTE # Normal [facility] Comment on above: Performed By: #### C EUGENE #### [facility] [address] [address] [address] Brennen Barton METAMYELOCYTE % Normal [facility] Comment on above: Performed By: #### C EUGENE #### [facility] [address] [address] [address] Brennen Barton MONOM# 0.69 103/ul Normal 0.30-0.80 [facility] Comment on above: Performed By: #### C EUGENE #### [facility] [address] [address] [address] Brennen Barton MONOM% 7.0 % Normal 1.7-12.0 [facility] Comment on above: Performed By: #### C EUGENE #### [facility] [address] [place] [address] Dr. Brennen Barton MPV 10.3 fL Normal 9.5-13.5 [facility] Comment on above: Performed By: #### C EUGENE #### [facility] [address] [place] [address] Dr. Brennen Barton MYELOCYTE # Normal [facility] Comment on above: Performed By: #### C EUGENE #### [facility] [address] [place] [address] Dr. Brennen Barton MYELOCYTE % Normal [facility] Comment on above: Performed By: #### C EUGENE #### [facility] [address] [place] [address] Dr. Brennen Barton NRBC Normal [facility] Comment on above: Performed By: #### C EUGENE #### [facility] [address] [place] [address] Dr. Brennen Barton PLT 205 103/ul Normal 150-450 [facility] Comment on above: Performed By: #### C EUGENE #### [facility] [address] [place] [address] Dr. Brennen Barton RBC 4.08 106/ul Critically low 4.20-5.40 [facility] Comment on above: Performed By: #### C EUGENE #### [facility] [address] [place] [address] Dr. Brennen Barton RDW 12.1 % Normal 11.0-15.0 [facility] Comment on above: Performed By: #### C EUGENE #### [facility] [address] [address] [address] Brennen Barton SEG # 3.86 103/ul Normal 1.40-6.50 [facility] Comment on above: Performed By: #### C EUGENE #### [facility] [address] [place] [address] Dr. Brennen Barton SEG % 39.0 % Critically low 43.0-75.0 [facility] Comment on above: Performed By: #### C EUGENE #### [facility] [address] [address] [address] Brennen Barton SMUDGE CELLS SEEN Normal [facility] Comment on above: Performed By: #### C EUGENE #### [facility] [address] [address] [address] Brennen Barton WBC 9.9 103/ul Normal 4.0-11.0 [facility] Comment on above: Performed By: #### C EUGENE #### [facility] [address] [place] [address] Dr. Brennen Barton LIPID PROFILEon 05-27-2022 CHOL-HDL RATIO NORM SEE BELOW Normal [facility] Comment on above: Result Comment: 3.3 - 4.4 LOW RISK 4.4 - 7.1 AVERAGE RISK 7.1 - 11.0 MODERATE RISK >11.0 HIGH RISK Performed By: #### L IPID, CMP #### [facility] [address] [place] [address] Dr. Brennen Barton Cholesterol [Mass/Vol] 239 mg/dL Critically high <=200 [facility] Comment on above: Performed By: #### L IPID, CMP #### [facility] [address] [place] [address] Dr. Brennen Barton Cholesterol in HDL [Mass/Vol] 66 mg/dL Critically high 40-60 [facility] Comment on above: Performed By: #### L IPID, CMP #### [facility] [address] [place] [address] Dr. Brennen Barton Cholesterol in LDL [Mass/Vol] 151.0 mg/dL Normal [facility] Comment on above: Performed By: #### L IPID, CMP #### [facility] [address] [address] [address] Brennen Barton Cholesterol.total/C holesterol in HDL [Mass ratio] 3.6 {ratio} Normal [facility] Comment on above: Performed By: #### L IPID, CMP #### [facility] [address] [address] [address] Brennen Barton HDL NORMAL > or = 60 mg/dl - LO W CARDIOVASCULAR RISK <40 mg/dl - HIGH CARDIOVASCULAR RISK Normal [facility] Comment on above: Performed By: #### L IPID, CMP #### [facility] [address] [address] [address] Brennen Barton LDL CALC NORMAL SEE BELOW Normal [facility] Comment on above: Result Comment: <100 mg/dl OPTIMAL 100 - 129 mg/dl NEAR OR ABOVE OPTIMAL 130 - 159 mg/dl BORDERLINE HIGH 160 - 189 mg/dl HIGH >190 mg/dl VERY HIGH Performed By: #### L IPID, CMP #### [facility] [address] [place] [address] Dr. Brennen Barton Triglyceride [Mass/Vol] 110 mg/dL Normal <=150 [facility] Comment on above: Performed By: #### L IPID, CMP #### [facility] [address] [place] [address] Dr. Brennen Barton VLDL CALC 22.0 mg/dL Normal [facility] Comment on above: Performed By: #### L IPID, CMP #### [facility] [address] [address] [address] Brennen Barton PROF 14(COMP METB)on 022 Albumin [Mass/Vol] 4.0 g/dL Normal 3.4-5.0 [facility] Comment on above: Performed By: #### L IPID, CMP #### [facility] [address] [place] [address] Dr. Brennen Barton Albumin/Globulin [Mass ratio] 1.2 {ratio} Normal [facility] Comment on above: Performed By: #### L IPID, CMP #### [facility] [address] [address] [address] Brennen Barton ALP [Catalytic activity/Vol] 141 U/L Critically high 46-116 [facility] Comment on above: Performed By: #### L IPID, CMP #### [facility] [address] [place] [address] Dr. Brennen Barton ALT [Catalytic activity/Vol] 19 U/L Normal 14-59 [facility] Comment on above: Performed By: #### L IPID, CMP #### [facility] [address] [place] [address] Dr. Brennen Barton Anion gap [Moles/Vol] 7.9 mmol/L Normal [facility] Comment on above: Performed By: #### L IPID, CMP #### [facility] [address] [place] [address] Dr. Brennen Barton AST [Catalytic activity/Vol] 26 U/L Normal 15-37 [facility] Comment on above: Performed By: #### L IPID, CMP #### [facility] [address] [place] [address] Dr. Brennen Barton Bilirubin [Mass/Vol] 0.5 mg/dL Normal 0.2-1.0 [facility] Comment on above: Performed By: #### L IPID, CMP #### [facility] [address] [place] [address] Dr. Brennen Barton Calcium [Mass/Vol] 9.8 mg/dL Normal 8.5-10.1 [facility] Comment on above: Performed By: #### L IPID, CMP #### [facility] [address] [place] [address] Dr. Brennen Barton Chloride [Moles/Vol] 103 mmol/L Normal 98-107 [facility] Comment on above: Performed By: #### L IPID, CMP #### [facility] [address] [place] [address] Dr. Brennen Barton CO2 [Moles/Vol] 33.1 mmol/L Critically high 21.0-32.0 [facility] Comment on above: Performed By: #### L IPID, CMP #### [facility] [address] [address] [address] Brennen Barton Creatinine [Mass/Vol] 0.57 mg/dL Normal 0.55-1.02 [facility] Comment on above: Performed By: #### L IPID, CMP #### [facility] [address] [address] [address] Brennen Barton EGFR-AF COMORAN >60 Normal >=60 [facility] Comment on above: Performed By: #### L IPID, CMP #### [facility] [address] [address] [address] Brennen Barton EGFR-NON AF COMORAN >60 Normal >=60 [facility] Comment on above: Performed By: #### L IPID, CMP #### [facility] [address] [address] [address] Brennen Barton Globulin (S) [Mass/Vol] 3.4 g/dL Normal [facility] Comment on above: Performed By: #### L IPID, CMP #### [facility] [address] [address] [address] Brennen Barton Glucose [Mass/Vol] 97 mg/dL Normal 74-106 [facility] Comment on above: Performed By: #### L IPID, CMP #### [facility] [address] [address] [address] Brennen Barton Potassium [Moles/Vol] 4.0 mmol/L Normal 3.5-5.1 [facility] Comment on above: Performed By: #### L IPID, CMP #### [facility] [address] [address] [address] Brennen Barton Protein [Mass/Vol] 7.4 g/dL Normal 6.4-8.2 [facility] Comment on above: Performed By: #### L IPID, CMP #### [facility] [address] [address] [address] Brennen Barton Sodium [Moles/Vol] 140 mmol/L Normal 136-145 [facility] Comment on above: Performed By: #### L IPID, CMP #### [facility] [address] [place], [place] [address] Dr. Brennen Barton Urea nitrogen [Mass/Vol] 11.0 mg/dL Normal 7.0-18.0 [facility] Comment on above: Performed By: #### L IPID, CMP #### [facility] [address], [place] [address] Dr. Brennen Barton Urea nitrogen/Creatinine [Mass ratio] 19.3 mg/mg Normal [facility] Comment on above: Performed By: #### L IPID, CMP #### [facility] [address], [place] [address] Sinus w/o Contrast*on CT Sinus w/o Contrast* HISTORY: Nasal congestion COMPARISON: None available TECHNIQUE: Multiple contiguous axial images of the paranasal sinuses were obtained without contrast enhancement. Multiplanar reformatted images were acquired at the CT console. All CT scans at this facility use dose modulation, iterative reconstruction, and/or weight based dosing when appropriate to reduce radiation dose to as low as reasonably achievable. FINDINGS: Maxillary Sinuses: Clear. Sphenoid Sinuses: Clear. Frontal Sinuses: Clear. Ethmoid Air Cells: Clear. Ostiomeatal units, frontal recesses, and sphenoethmoidal recesses are patent. There is sphenoid pneumatization that extends inferiorly and posterior to the sella resulting in a thin bony posterior margin of the clivus compatible with sellar type sphenoid pneumatization. No Angela or Onodi cells. Keros type II olfactory fossa. Middle ears: Clear. Nasal Septum: Rightward deviation. Bones: No evidence of osseous destruction. Miscellaneous: Right middle turbinate miguelangel bullosa. No acute intracranial process identified. Orbital contents are within normal limits. IMPRESSION: The paranasal sinuses are clear. Report reported and signed by Vito Sanchez on 09/05/2021 1224 Normal [facility] Operations Coordinator Vital Signs Date Time Vital Sign Value Performing Clinician Faci lity 07-05-2024 08:20-0500 Body height 167.6 cm Lew Alexander DO Work Phone: [facility] 07-05-2024 08:20-0500 Body mass index (BMI) [Ratio] 26.63 kg/m2 Lew Alexander DO Work Phone: [facility] 07-05-2024 08:20-0500 Body weight 74.84 kg Lew Alexander DO Work Phone: [facility] 03-17-2024 10:04-0400 Body mass index (BMI) [Ratio] 27.29 kg/m2 Shanna Vicente MD Work Phone: [facility] 03-17-2024 10:04-0400 Body temperature 97.81 [degF] Shanna Vicente MD Work Phone: [facility] 03-17-2024 10:04-0400 Body weight 74.4 kg Shanna Vicente MD Work Phone: [facility] 03-17-2024 10:04-0400 Diastolic blood pressure 83 mm[Hg] Shanna Vicente MD Work Phone: [facility] 03-17-2024 10:04-0400 Heart rate 74 /min Shanna Vicente MD Work Phone: [facility] 03-17-2024 10:04-0400 Respiratory rate 16 /min Shanna Vicente MD Work Phone: [facility] 03-17-2024 10:04-0400 SaO2% (BldA) [Mass fraction] 97 % Shanna Vicente MD Work Phone: [facility] 03-17-2024 10:04-0400 Systolic blood pressure 161 mm[Hg] Shanna Vicente MD Work Phone: [facility] 03-06-2023 15:17-0400 Body height 165.1 cm Melvin Guzman MD Work Phone: [facility] 03-06-2023 15:17-0400 Body temperature 97.39 [degF] Melvin Guzman MD Work Phone: [facility] 03-06-2023 15:17-0400 Body weight 73.48 kg Melvin Guzman MD Work Phone: [facility] 03-06-2023 15:17-0400 Diastolic blood pressure 78 mm[Hg] Melvin Guzman MD Work Phone: [facility] 03-06-2023 15:17-0400 Heart rate 63 /min Melvin Guzman MD Work Phone: [facility] 03-06-2023 15:17-0400 Respiratory rate 18 /min Melvin Guzman MD Work Phone: [facility] 03-06-2023 15:17-0400 SaO2% (BldA) [Mass fraction] 98 % Melvin Guzman MD Work Phone: [facility] 03-06-2023 15:17-0400 Systolic blood pressure 147 mm[Hg] Melvin Guzman MD Work Phone: [facility] 08-26-2022 14:54-0500 Diastolic blood pressure 72 mm[Hg] Nilda Art PA-C Work Phone: [facility] 08-26-2022 14:54-0500 Systolic blood pressure 158 mm[Hg] Nilda Art PA-C Work Phone: [facility] 08-26-2022 14:51-0500 Body height 165.1 cm Nilda Art PA-C Work Phone: [facility] 08-26-2022 14:51-0500 Body temperature 97.39 [degF] Nilda Art PA-C Work Phone: [facility] 08-26-2022 14:51-0500 Body weight 72.48 kg Nilda Art PA-C Work Phone: [facility] 08-26-2022 14:51-0500 Heart rate 73 /min Nilda Art PA-C Work Phone: [facility] 08-26-2022 14:51-0500 Respiratory rate 16 /min Nilda Art PA-C Work Phone: [facility] 08-26-2022 14:51-0500 SaO2% (BldA) [Mass fraction] 97 % Nilda Art PA-C Work Phone: [facility] 08-07-2022 14:45-0500 Body height 166.37 cm Jaqueline Charles Other [employer] Other 08-07-2022 14:45-0500 Body mass index (BMI) [Ratio] 26.22 kg/m2 Jaqueline Charles Other [employer] Other 08-07-2022 14:45-0500 Body weight 72.58 kg Jaqueline Charles Other [employer] Other 08-07-2022 14:45-0500 Diastolic blood pressure 90 mm[Hg] Jaqueline Charles Other [employer] Other 08-07-2022 14:45-0500 SaO2% (BldA) [Mass fraction] 97 % Jaqueline Charles Other [employer] Other 08-07-2022 14:45-0500 Systolic blood pressure 152 mm[Hg] Jaqueline Charles Other [employer] Other 06-24-2022 11:32-0500 Body height 165.1 cm Melvin Guzman MD Work Phone: [facility] 06-24-2022 11:32-0500 Body temperature 97.3 [degF] Melvin Guzman MD Work Phone: [facility] 06-24-2022 11:32-0500 Body weight 70.67 kg Melvin Guzman MD Work Phone: [facility] 06-24-2022 11:32-0500 Diastolic blood pressure 68 mm[Hg] Melvin Guzman MD Work Phone: [facility] 06-24-2022 11:32-0500 Heart rate 79 /min Melvin Guzman MD Work Phone: [facility] 06-24-2022 11:32-0500 Respiratory rate 16 /min Melvin Guzman MD Work Phone: [facility] 06-24-2022 11:32-0500 SaO2% (BldA) [Mass fraction] 98 % Melvin Guzman MD Work Phone: [facility] 06-24-2022 11:32-0500 Systolic blood pressure 162 mm[Hg] Melvin Guzman MD Work Phone: [facility] Encounters Encounter Date Encounter Type Care Provider Facility Start: 09-20-2024 End: 10-18-2024 ambulatory [facility] Facility:[facility] Start: 07-05-2024 End: 07-05-2024 Patient encounter procedure Lew Alexander DO Work Phone: [facility] Comment on above: History of total lef t hip replacement (Primary Dx) Start: 07-05-2024 End: 07-05-2024 ambulatory LEW ALEXANDER Not Available Start: 03-17-2024 End: 03-17-2024 Office outpatient visit 15 minutes Shanna Vicente MD Work Phone: Hematology/Oncology Comment on above: Lymphocytosis (Prima ry Dx) Start: 03-17-2024 End: 03-17-2024 ambulatory JAQUELINE CHARLES Facility:[facility] Start: 03-14-2024 End: 03-15-2024 Telephone encounter Brianna Ratliff RN Work Phone: Hematology/Oncology Comment on above: Transition Of Care Start: 03-06-2023 End: 03-06-2023 ambulatory Melvin Guzman MD Work Phone: Hematology/Oncology Comment on above: Lymphocytosis (Prima ry Dx) Start: 03-06-2023 End: 03-06-2023 Patient encounter procedure Melvin Guzman MD Work Phone: [facility] Start: 11-19-2022 End: 11-19-2022 ambulatory Jaqueline Charles Other [employer] Other Start: 11-19-2022 Telephone encounter Jaqueline Charles [facility] Start: 08-26-2022 End: 08-26-2022 ambulatory Nilda Gaston Art PA-C Work Phone: Hematology/Oncology Comment on above: Lymphocytosis (Prima ry Dx) Start: 08-26-2022 End: 08-26-2022 Patient encounter procedure Nilda Gaston Art PA-C Work Phone: [facility] Start: 08-14-2022 Telephone encounter Jaqueline Charles [facility] Start: 08-14-2022 End: 08-15-[address] JAQUELINE CHARLES Facility:[facility] Start: 08-11-2022 End: 08-11-2022 ambulatory Jaqueline Charles Other [employer] Other Start: 08-11-2022 Telephone encounter Jaqueline Charles [facility] Start: 08-08-2022 End: 08-08-2022 ambulatory Jaqueline Charles Other [employer] Other Start: 08-08-2022 Telephone encounter Jaqueline Charles [facility] Start: 08-07-2022 End: 08-08-[address] JAQUELINE CHARLES Facility:[facility] Start: 08-07-2022 Office outpatient vi sit 15 minutes Jaqueline Charles [facility] Start: 06-24-2022 End: 06-24-2022 ambulatory Melvin Guzman MD Work Phone: Hematology/Oncology Comment on above: Lymphocytosis (Prima ry Dx) Start: 06-24-2022 End: 06-24-2022 Patient encounter procedure Melvin Guzman MD Work Phone: [facility] Start: 06-06-2022 Chart abstracting Melvin lynn MD Work Phone: Hematology/Oncology Start: 05-27-2022 End: 05-28-[address] JAQUELINE CHARLES Facility:[facility] Procedures Date Procedure Procedure Detail Performing Clinician Start: 07-05-2024 Radex hip unilateral with pelvis 2-3 views Lew Alexander DO Work Phone: Plan of Treatment Date Care Activity Detail Author Start: 03-17-2027 Diabetes Screening Diabetes Screenheavenly g [facility] Start: 03-06-2026 Diabetes Screening Diabetes Screenin g [facility] Start: 08-26-2025 DIABETES SCREEN DIABETES SCREEN [facility] Start: 03-16-2025 End: 03-16-2025 Follow-up encounter 03/16/2025 10:30 AM EDT Visit (SP) Office Hematology/Oncology [address] [place] [address] Shanna Vicente MD [address] [place] [address] 1 year follow up with lab Hematology/Oncology Comment on above: 1 year follow up wit lab Start: 03-16-2025 End: 03-16-2025 Patient encounter procedure 03/16/2025 10:15 AM EDT Office Visit [facility] [address] [place] [address] 1 year follow up with lab [facility] Comment on above: 1 year follow up wit lab Start: 2024 RSV Vaccine (1 - 1-d ose 75+ series) RSV Vaccine (1 - 1-dose 75+ series) [facility] Start: 03-17-2024 End: 06-16-2024 CBC W Auto Differential panel - Blood COMPLETE BLOOD COUNT AND DIFFERENTIAL Lab Routine Lymphocytosis Expected: 03/17/2024, Expires: 06/16/2024 [facility] Work Phone: Comment on above: Expected: 03/17/2024 , Expires: 06/16/2024 Start: 03-17-2024 End: 06-16-2024 Comprehensive metabolic 2000 panel - Serum or Plasma COMPREHENSIVE METABOLIC PANEL Lab Routine Lymphocytosis Expected: 03/17/2024, Expires: 06/16/2024 [facility] Comment on above: Expected: 03/17/2024 , Expires: 06/16/2024 Start: 03-17-2024 End: 03-17-2024 ambulatory 03/17/2024 10:00 AM EDT Visit (SP) Office Hematology/Oncology [address] [place] [address] Shanna Vicente MD [address] [place] [address] [facility] Hematology/Oncology Comment on above: [facility] Start: 03-17-2024 End: 03-17-2024 Patient encounter procedure 03/17/2024 9:45 AM EDT Office Visit [facility] [address] [place] [address] [place] [address] Lab [facility] Comment on above: Lab Start: 03-06-2024 End: 05-06-2024 CBC W Auto Differential panel - Blood CBC + DIFF Lab Routine Lymphocytosis Expected: 03/06/2024 (Approximate), Expires: 05/06/2024 [facility] Work Phone: Comment on above: Expected: 03/06/2024 (Approximate), Expires: 05/06/2024 Start: 03-06-2024 End: 05-06-2024 Comprehensive metabolic 2000 panel - Serum or Plasma COMP METABOLIC PANEL Lab Routine Lymphocytosis Expected: 03/06/2024 (Approximate), Expires: 05/06/2024 [facility] Work Phone: Comment on above: Expected: 03/06/2024 (Approximate), Expires: 05/06/2024 Start: 02-21-2024 Covid-19 Vaccine ( season) Covid-19 Vaccine ( season) [facility] Start: 02-21-2024 Influenza vaccination Influenza Vacc ine (#1) [facility] Start: 06-22-2023 Advance Directive Discussion Advance Directive Discussion [facility] Start: 02-26-2023 End: 04-28-2023 CBC W Auto Differential panel - Blood CBC + DIFF Lab Routine Lymphocytosis Expected: 02/26/2023 (Approximate), Expires: 04/28/2023 [facility] Work Phone: Comment on above: Expected: 02/26/2023 (Approximate), Expires: 04/28/2023 Start: 02-26-2023 End: 04-28-2023 Comprehensive metabolic 2000 panel - Serum or Plasma COMP METABOLIC PANEL Lab Routine Lymphocytosis Expected: 02/26/2023 (Approximate), Expires: 04/28/2023 [facility] Work Phone: Comment on above: Expected: 02/26/2023 (Approximate), Expires: 04/28/2023 Start: 02-20-2023 Influenza vaccination Influenza Vacc ine (#1) [facility] Start: 08-22-2022 End: 10-22-2022 CBC W Auto Differential panel - Blood CBC + DIFF Lab Routine Lymphocytosis Expected: 08/22/2022 (Approximate), Expires: 10/22/2022 [facility] Work Phone: Comment on above: Expected: 08/22/2022 (Approximate), Expires: 10/22/2022 Start: 08-22-2022 End: 10-22-2022 Comprehensive metabolic 2000 panel - Serum or Plasma COMP METABOLIC PANEL Lab Routine Lymphocytosis Expected: 08/22/2022 (Approximate), Expires: 10/22/2022 [facility] Work Phone: Comment on above: Expected: 08/22/2022 (Approximate), Expires: 10/22/2022 Start: 08-22-2022 End: 10-22-2022 FLOW CYTOMETRY PERIPHERAL BLOOD LEUK/LYMPH (FCLEUK) FLOW CYTOMETRY PERIPHERAL BLOOD LEUK/LYMPH (FCLEUK) Lab Routine Lymphocytosis Expected: 08/22/2022 (Approximate), Expires: 10/22/2022 [facility] Work Phone: Comment on above: Expected: 08/22/2022 (Approximate), Expires: 10/22/2022 Start: 08-22-2022 End: 10-22-2022 Lactate dehydrogenase [Enzymatic activity/volume] in Serum or Plasma LD LACTATE DEHYDRO Lab Routine Lymphocytosis Expected: 08/22/2022 (Approximate), Expires: 10/22/2022 [facility] Work Phone: Comment on above: Expected: 08/22/2022 (Approximate), Expires: 10/22/2022 Start: 06-22-2022 ADVANCE DIRECTIVE DISCUSSION ADVANCE DIRECTIVE DISCUSSION [facility] Start: 06-22-2022 DEPRESSION ASSESSMENT DEPRESSION ASS ESSMENT [facility] Start: 04-09-2022 COVID-19 VACCINE (5 - Booster for Pfizer series) COVID-19 VACCINE (5 - Booster for Pfizer series) [facility] Start: 04-09-2022 Covid-19 Vaccine (5 - Pfizer series) Covid-19 Vaccine (5 - Pfizer series) [facility] Start: 02-20-2022 Influenza vaccination INFLUENZA (#1) [facility] Start: 06-22-2021 ADVANCE DIRECTIVE DISCUSSION ADVANCE DIRECTIVE DISCUSSION [facility] Start: 06-22-2021 DEPRESSION ASSESSMENT DEPRESSION ASS ESSMENT [facility] Start: 10-20-2014 SHINGRIX VACCINE (2 of 3) SHINGRIX VACCINE (2 of 3) [facility] Start: 2014 BONE DENSITY BONE DENSITY [facility] Start: 2014 Bone Density Screening Bone Density Screening [facility] Start: 2014 Pneumococcal Vaccine : 65+ (1 - PCV) Pneumococcal Vaccine: 65+ (1 - PCV) [facility] Start: 2014 Pneumococcal Vaccine : 65+ (1 of 1 - PCV) Pneumococcal Vaccine: 65+ (1 of 1 - PCV) [facility] Start: 2014 Pneumococcal Vaccine : 65+ Years (1 of 1 - PCV) Pneumococcal Vaccine: 65+ Years (1 of 1 - PCV) [facility] Start: 2014 PNEUMOCOCCAL: 65+ (1 - PCV) PNEUMOCOCCAL: 65+ (1 - PCV) [facility] Start: 2014 Screening for osteoporosis Bone Density Screening [facility] Start: 1999 SHINGRIX VACCINE (1 of 2) SHINGRIX VACCINE (1 of 2) [facility] Start: 1994 COLOGUARD (FIT-DNA) COLOGUARD (FIT-D NA) [facility] Start: 1994 Colonoscopy COLONOSCOPY [facility] Start: 1994 COLORECTAL CANCER SCREENING COLORECTAL CANCER SCREENING [facility] Start: [address] COLONOGRAPHY [facility] Start: 1994 DIABETES SCREEN DIABETES SCREEN [facility] Start: 1994 FECAL OCCULT BLOOD FECAL OCCULT BLOO D [facility] Start: 1994 Lipid 1996 panel - S honey or Plasma Lipid Screening [facility] Start: 1994 Lipid panel Lipid Screening [facility] Start: 1994 LIPID SCREEN LIPID SCREEN [facility] Start: 1994 Screening for malign ant neoplasm of colon [facility] Start: 1994 SIGMOIDOSCOPY SIGMOIDOSCOPY [facility] Start: 1989 Mammography [facility] Start: 1989 Screening for malign ant neoplasm of breast Mammogram Screening [facility] Start: 1968 Urine microalbumin profile [facility] Start: 1967 Anxiety Screening Anxiety Screening [facility] Start: 1967 Depression Screening Depression Scre ening [facility] Start: 1967 HEPATITIS C SCREENING HEPATITIS C [facility] Start: 1967 Hepatitis C screening Hepatitis C [facility] Start: 1949 COVID-19 VACCINE (#1) COVID-19 VACCI NE (#1) [facility] Start: 1949 Screening for malign ant neoplasm of colon [facility] Immunizations Immunization Date Immunization Notes Care Provider Fa cili 04-18-2022 Seasonal trivalent influenza vaccine, adjuvanted, preservative free Melvin Guzman MD Work Phone: [facility] 04-18-2022 influenza virus vacc ine, unspecified formulation Melvin Guzman MD Work Phone: [facility] 04-18-2021 influenza (aIIV4) vaccine, age 65+ yr, quadrivalent, PF (FLUAD QUADRIVALENT) Melvin Guzman MD Work Phone: [facility] 03-06-2020 Seasonal trivalent influenza vaccine, adjuvanted, preservative free Melvin Guzman MD Work Phone: [facility] 04-05-2019 Seasonal trivalent influenza vaccine, adjuvanted, preservative free Melvin Guzman MD Work Phone: [facility] 04-15-2018 influenza, high dose seasonal, preservative-free Melvin Guzman MD Work Phone: [facility] 05-21-2017 influenza, high dose seasonal, preservative-free Melvin Guzman MD Work Phone: [facility] 08-25-2014 zoster vaccine, live Melvin poe MD Work Phone: [facility] Payers Date Payer Category Payer [facility] Insurance [employer] [id number] 2021 Unknown MMO MMO MEDICARE SUPPLEMENT [id number] 2021-Present [phone] [address] [place] [address] Indemnity [id number] 2014 Medicare [id number] 1959 Medicare [id number] 1959 Unknown [id number] 1949 Unknown [id number] 1949 Unknown [id number] 1949 Unknown [id number] 1949 Unknown [id number] 1949 Unknown [id number] 1949 Unknown [id number] Social History Date Type Detail Facility Start: 06-06-2022 Tobacco smoking status NVIS Ex-smoker [facility] History of tobacco use Current smoker [facility] History of tobacco use Cigarette Smoker [facility] History of tobacco use Passive smoker [facility] Start: 06-06-2022 End: 07-02-2023 Tobacco use and exposure Smokeless tobacco non-user [facility] Start: 06-06-2022 End: 07-05-2024 Alcohol intake Current drinker of alcohol (finding) [facility] Start: 1950 Sex Assigned At Not on file [facility] Start: 06-24-2022 End: 07-02-2023 Tobacco smoking status [facility] Never smoked tobacco [facility] Start: 06-24-2022 End: 03-17-2024 Alcohol intake Ex-drinker (finding) [facility] Start: 03-06-2023 End: 07-05-2024 Sex Assigned At [facility] Other Start: 03-06-2023 End: 07-05-2024 History of Social function [facility] National Score (1-100), lower number is lower risk 63 [facility] Start: 1950 Sex assigned at Female [facility] Start: 06-25-2023 Gender identity Identifies as female gender (finding) [facility] Clinical Notes 06-24-2022 to 07-05-2024 Lew Alexander DO - 07/05/2024 8:30 AM ESTPatient InstructionsShanna Vicente MD - 03/17/2024 10:00 AM EDTTelephone Karen - Brianna Ratliff RN - 03/14/2024 10:49 AM EDT Note Date & Type Note Facility 07-05-2024 History of Present illness Narrative Post op left FORTINO annual visit: The patient is seen and evaluated for annual total hip arthroplasty visit. Pain is appropriately controlled. Denies chest pain or shortness of breath or palpitations. Continues to be consistent and diligent with home exercise program as well as physical therapy modalities. Physical therapy modalities were instructed. Happy with progress made. Physical Exam: The left total hip incision is clean, dry and intact. Mild swelling as expected. Has a stable arc of motion without mechanical symptoms. No instability of the prosthesis. No rash, infection or DVT. The calf is supple. Gait is assisted with stiffness with mild antalgic component. Image Results: Xrays taken in the office today saved to the permanent record, AP and lateral weightbearing films, show stable position and alignment of the FORTINO prosthesis. No sign of loosening, fracture or infection. Assessment: S/P left total hip arthroplasty-annual post-operative visit Treatment Plan: The nature of the findings were discussed at length. Continuance of regular exercise, weight management and fall precautions reviewed. vp legal affairs antibiotic prophylaxis for dental or invasive work were reviewed. Numerous questions were answered. Follow-up in 1 year for repeat xray and exam, sooner if concerned. The patient is discharged in stable condition. documented in this encounter [facility] 03-17-2024 Instructions Shanna Vicente MD - 03/17/2024 10:11 AM EDT Ordered labs F/u in 1 year. documented in this encounter [facility] 03-17-2024 History of Present illness Narrative PATIENT NAME: Moira Godinez [facility] NO.: [id number] ATTENDING PHYSICIAN: Shanna Vicente MD DATE OF SERVICE: March 17, 2024. Dear No referring provider defined for this encounter. here is an update on a follow up visit on female Moira Godinez at the clinic 03/17/24. Diagnosis: MLUS Treatment History: HPI: Moira Godinez is a 72 year old year old female here for follow up. Doing well and no complaints Updated visit 03/17/24: Doing well No major complaints Last mammo in Jun 2023. No B symptoms. PAST MEDICAL HISTORY Diagnosis Date Abnormal CBC Anxiety Arthritis Cervical paraspinal muscle spasm Chronic sinusitis Diverticulitis Hypercalcemia Hypertension Social History Tobacco Use Smoking status: Never Passive exposure: Past Smokeless tobacco: Never Vaping Use Vaping status: Never Used Substance Use Topics Alcohol use: Not Currently Drug use: Never FAMILY HISTORY Problem Relation Age of Onset Hypertension Father other (Hypercholesterolemia) Father Coronary Artery Disease Father Past medical, social and family history reviewed without any changes. REVIEW OF SYSTEMS GENERAL: No weight loss, malaise or fevers. No night sweats. HEENT: Negative for headaches, No changes in hearing or vision, no nose bleeds or other nasal problems. RESPIRATORY: Negative for cough, wheezing and shortness of breath CARDIOVASCULAR: Negative for chest pain, leg swelling and palpitations GI: Negative for abdominal discomfort, blood in stools or black stools and change in bowel habits : Negative for dysuria, frequency and incontinence MUSCULOSKELETAL: Negative for joint pain or swelling, back pain, and muscle pain. SKIN: Negative for lesions, rash, and itching. HEMATOLOGY/LYMPHOLOGY Negative for prolonged bleeding, bruising easily, and swollen nodes. NEURO: Negative for numbness or tingling of hands/feet. No weakness. PHYSICAL EXAMINATION: BP 161/83 Pulse 74 Temp (Src) 97.8 (Temporal) Resp 16 Wt 164 lb 0.4 oz (74.4kg) SpO2 97% There were no vitals taken for this visit. Last 3 Encounter Wt Readings: Date: Wt: 08/26/2022 72.5 kg (159 lb 12.8 oz) 06/24/2022 70.7 kg (155 lb 12.8 oz) General appearance:ECOG PERFORMANCE STATUS: 0- Fully active, able to carry on all pre-disease performance w/o restriction. Patient in NAD. Skin: Skin color, texture, turgor normal. No rashes or lesions. Eyes: Anicteric sclera. Pupils are equally round and reactive to light. Extraocular movements are intact. Lymph Nodes: No cervical, supraclavicular, axillary or inguinal adenopathy. Oropharynx: Lips, mucosa, and tongue normal. Back: No pain to percussion. Negative SLR test Lungs clear to auscultation, No wheezing or rhonchi Heart: RRR without murmur, gallop, or rubs. Abdomen soft, non-tender. No masses, organomegaly Extremities: No deformities. No edema Neuro: Gait and speech normal. Reflexes normal and symmetric. Muscular strength intact. Sensation grossly intact. Rectal: Deferred : Deferred LABS: Glucose (mg/dL) Date Value 03/06/2023 131 Potassium (mmol/L) Date Value 03/06/2023 4.1 Sodium (mmol/L) Date Value 03/06/2023 140 Chloride (mmol/L) Date Value 03/06/2023 102 CO2 (mmol/L) Date Value 03/06/2023 29 Creatinine (mg/dL) Date Value 03/06/2023 0.64 BUN (mg/dL) Date Value 03/06/2023 11 Anion Gap (mmol/L) Date Value 03/06/2023 9 Calcium, Total (mg/dL) Date Value 03/06/2023 9.8 Protein, Total (g/dL) Date Value 03/06/2023 6.6 Albumin (g/dL) Date Value 03/06/2023 4.3 Bilirubin, Total (mg/dL) Date Value 03/06/2023 0.2 Alkaline Phosphatase (U/L) Date Value 03/06/2023 162 AST (U/L) Date Value 03/06/2023 27 ALT (U/L) Date Value 03/06/2023 15 WBC Date Value Ref Range Status 03/17/2024 14.02 (H) 3.70 - 11.00 k/uL Preliminary RBC Date Value Ref Range Status 03/17/2024 4.05 3.90 - 5.20 m/uL Preliminary Hemoglobin Date Value Ref Range Status 03/17/2024 12.9 11.5 - 15.5 g/dL Preliminary Hematocrit Date Value Ref Range Status 03/17/2024 37.7 36.0 - 46.0 % Preliminary MCV Date Value Ref Range Status 03/17/2024 93.1 80.0 - 100.0 fL Preliminary MCH Date Value Ref Range Status 03/17/2024 31.9 26.0 - 34.0 pg Preliminary MCHC Date Value Ref Range Status 03/17/2024 34.2 30.5 - 36.0 g/dL Preliminary RDW-CV Date Value Ref Range Status 03/17/2024 12.5 11.5 - 15.0 % Preliminary Platelet Count Date Value Ref Range Status 03/17/2024 184 150 - 400 k/uL Preliminary MPV Date Value Ref Range Status 03/17/2024 10.2 9.0 - 12.7 fL Preliminary Abs Neut (Segs + Bands) Date Value Ref Range Status 03/06/2023 3.47 1.45 - 7.50 k/uL Final Lymphocytes % Date Value Ref Range Status 03/06/2023 65.0 % Final Abs Lymph (Normal + Reactive) Date Value Ref Range Status 03/06/2023 7.05 (H) 1.00 - 4.00 k/uL Final Monocytes % Date Value Ref Range Status 03/06/2023 2.0 % Final Abs Pepin Date Value Ref Range Status 03/06/2023 0.22 <0.87 k/uL Final Eosin% Date Value Ref Range Status 03/06/2023 0.0 % Final Abs Eosin Date Value Ref Range Status 03/06/2023 0.00 <0.46 k/uL Final Basophils % Date Value Ref Range Status 03/06/2023 0.0 % Final Abs Baso Date Value Ref Range Status 03/06/2023 0.00 <0.11 k/uL Final PATH: Flow 08/2022 Interpretation The findings are diagnostic of involvement by a B-cell lymphoproliferative disorder. The immunophenotype is consistent with chronic lymphocytic leukemia/small lymphocytic lymphoma (CLL/SLL), but the absolute B-cell number is calculated to be 3465/uL. Using current diagnostic criteria, B-cells must be >5000/uL to establish a diagnosis of CLL. In the absence of adenopathy of other extramedullary mass lesions, the findings may be best classified as monoclonal B lymphocytosis (MBL). Imaging: Assessment and Plan: Moira Godinez is a 72 year old year old female here for follow up. CBC today showed stable blood counts. Monitor the mild leukocytosis for now. MBL- Doing well and see back in 1 year. Thank you for the kind referral. If there are any questions and or concerns please do not hesitate to contact me at [phone]. Shanna Vicente MD Hematology/Medical Oncology [facility] spent a total of 20 minutes on the date of the service which included preparing to see the patient, [id number] patient care, completing clinical documentation, obtaining and/or reviewing separately obtained history, performing a medically appropriate examination, counseling and educating the patient/family/caregiver, and ordering medications, tests, or procedures CC: Jaqueline Charles MD documented in this encounter [facility] 03-17-2024 Note HNO ID: [id number] Author: SHANNA VICENTE MD Service: ? Author Type: Physician Type: Progress Notes Filed: 03/17/2024 10:36 Note Text: PATIENT NAME: Moira Godinez [facility] NO.: [id number] ATTENDING PHYSICIAN: Shanna Vicente MD DATE OF SERVICE: March 17, 2024. Dear Dr. Mcdonald referring provider defined for this encounter. here is an update on a follow up visit on female Moira Godinez at the clinic 03/17/24. Diagnosis: MLUS Treatment History: HPI: Moira Godinez is a 72 year old year old female here for follow up. Doing well and no complaints Updated visit 03/17/24: Doing well No major complaints Last mammo in Jun 2023. No B symptoms. PAST MEDICAL HISTORY Diagnosis Date Abnormal CBC Anxiety Arthritis Cervical paraspinal muscle spasm Chronic sinusitis Diverticulitis Hypercalcemia Hypertension Social History Tobacco Use Smoking status: Never Passive exposure: Past Smokeless tobacco: Never Vaping Use Vaping status: Never Used Substance Use Topics Alcohol use: Not Currently Drug use: Never FAMILY HISTORY Problem Relation Age of Onset Hypertension Father other (Hypercholesterolemia) Father Coronary Artery Disease Father Past medical, social and family history reviewed without any changes. REVIEW OF SYSTEMS GENERAL: No weight loss, malaise or fevers. No night sweats. HEENT: Negative for headaches, No changes in hearing or vision, no nose bleeds or other nasal problems. RESPIRATORY: Negative for cough, wheezing and shortness of breath CARDIOVASCULAR: Negative for chest pain, leg swelling and palpitations GI: Negative for abdominal discomfort, blood in stools or black stools and change in bowel habits : Negative for dysuria, frequency and incontinence MUSCULOSKELETAL: Negative for joint pain or swelling, back pain, and muscle pain. SKIN: Negative for lesions, rash, and itching. HEMATOLOGY/LYMPHOLOGY Negative for prolonged bleeding, bruising easily, and swollen nodes. NEURO: Negative for numbness or tingling of hands/feet. No weakness. PHYSICAL EXAMINATION: BP 161/83 Pulse 74 Temp (Src) 97.8 (Temporal) Resp 16 Wt 164 lb 0.4 oz (74.4kg) SpO2 97% There were no vitals taken for this visit. Last 3 Encounter Wt Readings: Date: Wt: 08/26/2022 72.5 kg (159 lb 12.8 oz) 06/24/2022 70.7 kg (155 lb 12.8 oz) General appearance:ECOG PERFORMANCE STATUS: 0- Fully active, able to carry on all pre-disease performance w/o restriction. Patient in NAD. Skin: Skin color, texture, turgor normal. No rashes or lesions. Eyes: Anicteric sclera. Pupils are equally round and reactive to light. Extraocular movements are intact. Lymph Nodes: No cervical, supraclavicular, axillary or inguinal adenopathy. Oropharynx: Lips, mucosa, and tongue normal. Back: No pain to percussion. Negative SLR test Lungs clear to auscultation, No wheezing or rhonchi Heart: RRR without murmur, gallop, or rubs. Abdomen soft, non-tender. No masses, organomegaly Extremities: No deformities. No edema Neuro: Gait and speech normal. Reflexes normal and symmetric. Muscular strength intact. Sensation grossly intact. Rectal: Deferred : Deferred LABS: Glucose (mg/dL) Date Value 03/06/2023 131 Potassium (mmol/L) Date Value 03/06/2023 4.1 Sodium (mmol/L) Date Value 03/06/2023 140 Chloride (mmol/L) Date Value 03/06/2023 102 CO2 (mmol/L) Date Value 03/06/2023 29 Creatinine (mg/dL) Date Value 03/06/2023 0.64 BUN (mg/dL) Date Value 03/06/2023 11 Anion Gap (mmol/L) Date Value 03/06/2023 9 Calcium, Total (mg/dL) Date Value 03/06/2023 9.8 Protein, Total (g/dL) Date Value 03/06/2023 6.6 Albumin (g/dL) Date Value 03/06/2023 4.3 Bilirubin, Total (mg/dL) Date Value 03/06/2023 0.2 Alkaline Phosphatase (U/L) Date Value 03/06/2023 162 AST (U/L) Date Value 03/06/2023 27 ALT (U/L) Date Value 03/06/2023 15 WBC Date Value Ref Range Status 03/17/2024 14.02 (H) 3.70 - 11.00 k/uL Preliminary RBC Date Value Ref Range Status 03/17/2024 4.05 3.90 - 5.20 m/uL Preliminary Hemoglobin Date Value Ref Range Status 03/17/2024 12.9 11.5 - 15.5 g/dL Preliminary Hematocrit Date Value Ref Range Status 03/17/2024 37.7 36.0 - 46.0 % Preliminary MCV Date Value Ref Range Status 03/17/2024 93.1 80.0 - 100.0 fL Preliminary MCH Date Value Ref Range Status 03/17/2024 31.9 26.0 - 34.0 pg Preliminary MCHC Date Value Ref Range Status 03/17/2024 34.2 30.5 - 36.0 g/dL Preliminary RDW-CV Date Value Ref Range Status 03/17/2024 12.5 11.5 - 15.0 % Preliminary Platelet Count Date Value Ref Range Status 03/17/2024 184 150 - 400 k/uL Preliminary MPV Date Value Ref Range Status 03/17/2024 10.2 9.0 - 12.7 fL Preliminary Abs Neut (Segs + Bands) Date Value Ref Range Status 03/06/2023 3.47 1.45 - 7.50 k/uL Final Lymphocytes % Date Value Ref Range Status 03/06/2023 65 (more content not included)... [facility] 03-14-2024 Telephone encounter Note Labs pending if you agree. Brianna Ratliff RN [facility] 03-14-2024 Miscellaneous Notes Labs pending if you agree. Brianna Ratliff, RN documented in this encounter [facility] 03-06-2023 History of Present illness Narrative PATIENT NAME: Moira Godinez [facility] NO.: [id number] ATTENDING PHYSICIAN: Melvin Guzman MD DATE OF SERVICE: March 06, [address] Mcdonald referring provider defined for this encounter. here is an update on a follow up visit on female Moira Godinez at the clinic 03/06/2023 Diagnosis: MLUS Treatment History: HPI: Moira Godinez is a 72 year old year old female here for follow up. Doing well and no complaints PAST MEDICAL HISTORY Diagnosis Date Abnormal CBC Anxiety Arthritis Cervical paraspinal muscle spasm Chronic sinusitis Diverticulitis Hypercalcemia Hypertension Social History Tobacco Use Smoking status: Never Passive exposure: Past Smokeless tobacco: Never Vaping Use Vaping Use: Never used Substance Use Topics Alcohol use: Not Currently Drug use: Never FAMILY HISTORY Problem Relation Age of Onset Hypertension Father other (Hypercholesterolemia) Father Coronary Artery Disease Father Past medical, social and family history reviewed without any changes. REVIEW OF SYSTEMS GENERAL: No weight loss, malaise or fevers. No night sweats. HEENT: Negative for headaches, No changes in hearing or vision, no nose bleeds or other nasal problems. RESPIRATORY: Negative for cough, wheezing and shortness of breath CARDIOVASCULAR: Negative for chest pain, leg swelling and palpitations GI: Negative for abdominal discomfort, blood in stools or black stools and change in bowel habits : Negative for dysuria, frequency and incontinence MUSCULOSKELETAL: Negative for joint pain or swelling, back pain, and muscle pain. SKIN: Negative for lesions, rash, and itching. HEMATOLOGY/LYMPHOLOGY Negative for prolonged bleeding, bruising easily, and swollen nodes. NEURO: Negative for numbness or tingling of hands/feet. No weakness. PHYSICAL EXAMINATION: There were no vitals taken for this visit. There were no vitals taken for this visit. Last 3 Encounter Wt Readings: Date: Wt: 08/26/2022 72.5 kg (159 lb 12.8 oz) 06/24/2022 70.7 kg (155 lb 12.8 oz) General appearance:ECOG PERFORMANCE STATUS: 0- Fully active, able to carry on all pre-disease performance w/o restriction. Patient in NAD. Skin: Skin color, texture, turgor normal. No rashes or lesions. Eyes: Anicteric sclera. Pupils are equally round and reactive to light. Extraocular movements are intact. Lymph Nodes: No cervical, supraclavicular, axillary or inguinal adenopathy. Oropharynx: Lips, mucosa, and tongue normal. Back: No pain to percussion. Negative SLR test Lungs clear to auscultation, No wheezing or rhonchi Heart: RRR without murmur, gallop, or rubs. Abdomen soft, non-tender. No masses, organomegaly Extremities: No deformities. No edema Neuro: Gait and speech normal. Reflexes normal and symmetric. Muscular strength intact. Sensation grossly intact. Rectal: Deferred : Deferred LABS: Glucose (mg/dL) Date Value 03/06/2023 131 Potassium (mmol/L) Date Value 03/06/2023 4.1 Sodium (mmol/L) Date Value 03/06/2023 140 Chloride (mmol/L) Date Value 03/06/2023 102 CO2 (mmol/L) Date Value 03/06/2023 29 Creatinine (mg/dL) Date Value 03/06/2023 0.64 BUN (mg/dL) Date Value 03/06/2023 11 Anion Gap (mmol/L) Date Value 03/06/2023 9 Calcium, Total (mg/dL) Date Value 03/06/2023 9.8 Protein, Total (g/dL) Date Value 03/06/2023 6.6 Albumin (g/dL) Date Value 03/06/2023 4.3 Bilirubin, Total (mg/dL) Date Value 03/06/2023 0.2 Alkaline Phosphatase (U/L) Date Value 03/06/2023 162 AST (U/L) Date Value 03/06/2023 27 ALT (U/L) Date Value 03/06/2023 15 WBC Date Value Ref Range Status 03/06/2023 10.84 3.70 - 11.00 k/uL Preliminary RBC Date Value Ref Range Status 03/06/2023 3.97 3.90 - 5.20 m/uL Preliminary Hemoglobin Date Value Ref Range Status 03/06/2023 12.3 11.5 - 15.5 g/dL Preliminary Hematocrit Date Value Ref Range Status 03/06/2023 37.5 36.0 - 46.0 % Preliminary MCV Date Value Ref Range Status 03/06/2023 94.5 80.0 - 100.0 fL Preliminary MCH Date Value Ref Range Status 03/06/2023 31.0 26.0 - 34.0 pg Preliminary MCHC Date Value Ref Range Status 03/06/2023 32.8 30.5 - 36.0 g/dL Preliminary RDW-CV Date Value Ref Range Status 03/06/2023 12.5 11.5 - 15.0 % Preliminary Platelet Count Date Value Ref Range Status 03/06/2023 216 150 - 400 k/uL Preliminary MPV Date Value Ref Range Status 03/06/2023 10.0 9.0 - 12.7 fL Preliminary Abs Neut (Segs + Bands) Date Value Ref Range Status 08/26/2022 4.45 1.45 - 7.50 k/uL Final Lymphocytes % Date Value Ref Range Status 08/26/2022 55.0 % Final Abs Lymph (Normal + Reactive) Date Value Ref Range Status 08/26/2022 6.12 (H) 1.00 - 4.00 k/uL Final Monocytes % Date Value Ref Range Status 08/26/2022 4.0 % Final Abs Pepin Date Value Ref Range Status 08/26/2022 0.45 <0.87 k/uL Final Eosin% Date Value Ref Range Status 08/26/2022 0.0 % Final Abs Eosin Date Value Ref Range Status 08/26/2022 0.00 <0.46 k/uL Final Basophils % Date Value Ref Range Status 08/26/2022 1.0 % Final Abs Baso Date Value Ref Range Status 08/26/2022 0.11 (H) <0.11 k/uL Final PATH: Flow 08/2022 Interpretation The findings are diagnostic of involvement by a B-cell lymphoproliferative disorder. The immunophenotype is consistent with chronic lymphocytic leukemia/small lymphocytic lymphoma (CLL/SLL), but the absolute B-cell number is calculated to be 3465/uL. Using current diagnostic criteria, B-cells must be >5000/uL to establish a diagnosis of CLL. In the absence of adenopathy of other extramedullary mass lesions, the findings may be best classified as monoclonal B lymphocytosis (MBL). Imaging: Assessment and Plan: Moira Godinez is a 72 year old year old female here for follow up. MBL- Doing well and see back in 1 year Thank you for the kind referral. If there are any questions and or concerns please do not hesitate to contact me at [phone]. Melvin Guzman MD Hematology/Medical Oncology [facility] I spent a total of 20 minutes on the date of the service which included preparing to see the patient, [id number] patient care, completing clinical documentation, obtaining and/or reviewing separately obtained history, performing a medically appropriate examination, counseling and educating the patient/family/caregiver, and ordering medications, tests, or procedures CC: Jaqueline Charles MD documented in this encounter [facility] 08-26-2022 History of Present illness Narrative PATIENT NAME: Moira Godinez CLINIC NO.: [id number] ATTENDING PHYSICIAN: Melvin Guzman MD DATE OF SERVICE: August 26 2022 (Elements copied from Dr. Guzman's note dated June 24, 2022, have been reviewed and updated where appropriate, and all reflect current assessment and medical decision making during today's encounter, August 26, 2022) CHIEF COMPLAINT: I have abnormal blood count HPI: Moira returns for follow up for her lymphocytosis. Since her last visit here she has been feeling fine. Denies any fever, chills, infections, abdominal pain, early satiety, weight loss or night sweats. Current Outpatient Medications Medication Sig losartan (COZAAR) 25 mg tablet Take 25 mg by mouth once daily. metoprolol succinate ER (TOPROL XL) 50 mg 24 hr tablet Take 50 mg by mouth once daily. tiZANidine (ZANAFLEX) 2 mg tablet Take 2 mg by mouth daily at bedtime. fluticasone propionate (FLONASE NASAL) Use in the nose. No current facility-administered medications for this visit. ALLERGIES Allergen Reactions Fish Containing Pro* Unknown Iodine Unknown Drugs containing iodine Penicillin V Unknown PAST MEDICAL HISTORY Diagnosis Date Abnormal CBC Anxiety Arthritis Cervical paraspinal muscle spasm Chronic sinusitis Diverticulitis Hypercalcemia Hypertension PAST SURGICAL HISTORY Procedure Laterality Date APPENDECTOMY COLONOSCOPY with Polypectomy D&C, DIAG AND/OR THERAPEUTIC HYSTERECTOMY PAST SURGICAL HISTORY OF Right 1973 Rt Ovary removed TOTAL HIP REPLACEMENT Left FAMILY HISTORY Problem Relation Age of Onset Hypertension Father other (Hypercholesterolemia) Father Coronary Artery Disease Father Social History Tobacco Use Smoking status: Never Passive exposure: Past Smokeless tobacco: Never Vaping Use Vaping Use: Never used Substance Use Topics Alcohol use: Not Currently Drug use: Never REVIEW OF SYSTEMS GENERAL: No weight loss, malaise or fevers. No night sweats. HEENT: Negative for headaches, No changes in hearing or vision, no nose bleeds or other nasal problems. RESPIRATORY: Negative for cough, wheezing and shortness of breath CARDIOVASCULAR: Negative for chest pain, leg swelling and palpitations GI: Negative for abdominal discomfort, blood in stools or black stools and change in bowel habits : Negative for dysuria, frequency and incontinence MUSCULOSKELETAL: Negative for joint pain or swelling, back pain, and muscle pain. SKIN: Negative for lesions, rash, and itching. HEMATOLOGY/LYMPHOLOGY Negative for prolonged bleeding, bruising easily, and swollen nodes. NEURO: Negative for numbness or tingling of hands/feet. No weakness. PHYSICAL EXAMINATION: BP 158/72 Pulse 73 Temp 36.3 C (97.4 F) (Temporal) Resp 16 Ht 165.1 cm (5' 5 ) Wt 72.5 kg (159 lb 12.8 oz) SpO2 97% BMI 26.59 kg/m ECOG PERFORMANCE STATUS: 0- Fully active, able to carry on all pre-disease performance w/o restriction. PHYSICAL EXAMINATION General: Alert and oriented, no distress, pleasant and cooperative. Heart: Regular, normal S1 and S2, no murmurs, rubs, or gallops Lymph: no cervical, supraclavicular, axillary or inguinal lymph nodes palpable Lungs: Clear to auscultation bilaterally Abdomen: Benign, No HSM Extremities: Feet/ankles without edema, posterior tibial pulses full and symmetrical LABS: Glucose (mg/dL) Date Value 08/26/2022 118 Potassium (mmol/L) Date Value 08/26/2022 3.8 Sodium (mmol/L) Date Value 08/26/2022 143 Chloride (mmol/L) Date Value 08/26/2022 104 CO2 (mmol/L) Date Value 08/26/2022 29 Creatinine (mg/dL) Date Value 08/26/2022 0.57 BUN (mg/dL) Date Value 08/26/2022 12 Anion Gap (mmol/L) Date Value 08/26/2022 10 Calcium, Total (mg/dL) Date Value 08/26/2022 10.0 Protein, Total (g/dL) Date Value 08/26/2022 7.1 Albumin (g/dL) Date Value 08/26/2022 4.6 Bilirubin, Total (mg/dL) Date Value 08/26/2022 0.2 Alkaline Phosphatase (U/L) Date Value 08/26/2022 154 AST (U/L) Date Value 08/26/2022 31 ALT (U/L) Date Value 08/26/2022 21 WBC Date Value Ref Range Status 08/26/2022 11.13 (H) 3.70 - 11.00 k/uL Preliminary RBC Date Value Ref Range Status 08/26/2022 3.92 3.90 - 5.20 m/uL Preliminary Hemoglobin Date Value Ref Range Status 08/26/2022 12.4 11.5 - 15.5 g/dL Preliminary Hematocrit Date Value Ref Range Status 08/26/2022 37.7 36.0 - 46.0 % Preliminary MCV Date Value Ref Range Status 08/26/2022 96.2 80.0 - 100.0 fL Preliminary MCH Date Value Ref Range Status 08/26/2022 31.6 26.0 - 34.0 pg Preliminary MCHC Date Value Ref Range Status 08/26/2022 32.9 30.5 - 36.0 g/dL Preliminary RDW-CV Date Value Ref Range Status 08/26/2022 12.9 11.5 - 15.0 % Preliminary Platelet Count Date Value Ref Range Status 08/26/2022 197 150 - 400 k/uL Preliminary MPV Date Value Ref Range Status 08/26/2022 10.0 9.0 - 12.7 fL Preliminary PATH: IMAGING: ASSESSMENT AND PLAN: Moira Godinez is a 72 year old year old female with history of HTN and absloute lymphocytosis. Today's labs again show stable lymphocytosis, with mild elevation of LDH and Alk Phos. Flow cytometry is pending. We again discussed the differential diagnosis and we will call her with her flow cytometry results. We will plan to see her back in 6 months for follow up and repeat CBC. Nilda Cordova PA-C' CC: Jaqueline Charles MD documented in this encounter [facility] 08-08-2022 Evaluation note Encounter Date Diagnosis Assessment Notes Jul, Lumbar degenerative disc disease (ICD-10 - M51.36) [facility] Other 02-16-2023 Evaluation note* Encounter Date Diagnosis Assessment Notes Treatment Notes Treatment Clinical Notes Jul, Cervical pain (neck) (ICD-10 - M54.2) Discussed that she has failed many conservative measures. Will check XR. Gave order to pt for PT. Jul, Left sciatic nerve pain (ICD-10 - M54.32) Add steroids to replace NSAIDs temporarily. Has tried chiropractor, massage, walking, stretching, NSAIDs, heat and ice. [facility] Other 01-03-2023 History of Present illness Narrative* Melvin Guzman MD - 06/24/2022 11:36 AM EST PATIENT NAME: Moira Godinez CLINIC NO.: [id number] ATTENDING PHYSICIAN: Melvin Guzman MD DATE OF SERVICE: June 24, [address] Jaqueline Charles thank you for referring Mrs Moira Godinez for an opinion regarding Lymphocytosis. CHIEF COMPLAINT: I have abnormal blood count HPI: Moira Godinez is a 72 year old year old female with PMH sig for HTN, here for lymphocytosis. Denies any fevers and or chills. Denies any recurrent infections and or weight loss. Denies anyearly satiety. She has had a very stressful year and lost mother to pancreatic cancer at the age of94 and dealing with bladder cancer. She has couple of uncles with CLL. 11 sisters and none with heme malignancies. One is on HD. No current outpatient medications on file. No current facility-administered medications for this visit. ALLERGIES Allergen Reactions Fish Containing Pro* Unknown Iodine Unknown Drugs containing iodine Penicillin V Unknown PAST MEDICAL HISTORY Diagnosis Date Abnormal CBC Anxiety Arthritis Cervical paraspinal muscle spasm Chronic sinusitis Diverticulitis Hypercalcemia Hypertension PAST SURGICAL HISTORY Procedure Laterality Date APPENDECTOMY COLONOSCOPY with Polypectomy D&C, DIAG AND/OR THERAPEUTIC HYSTERECTOMY PAST SURGICAL HISTORY OF Right 1973 Rt Ovary removed TOTAL HIP REPLACEMENT Left FAMILY HISTORY Problem Relation Age of Onset Hypertension Father other (Hypercholesterolemia) Father Coronary Artery Disease Father Social History Tobacco Use Smoking status: Former Types: Cigarettes Passive exposure: Past Smokeless tobacco: Never Substance Use Topics Alcohol use: Yes Drug use: Never REVIEW OF SYSTEMS GENERAL: No weight loss, malaise or fevers. No night sweats. HEENT: Negative for headaches, No changes in hearing or vision, no nose bleeds or other nasal problems. RESPIRATORY: Negative for cough, wheezing and shortness of breath CARDIOVASCULAR: Negative for chest pain, leg swelling and palpitations GI: Negative for abdominal discomfort, blood in stools or black stools and change in bowel habits : Negative for dysuria, frequency and incontinence MUSCULOSKELETAL: Negative for joint pain or swelling, back pain, and muscle pain. SKIN: Negative for lesions, rash, and itching. HEMATOLOGY/LYMPHOLOGY Negative for prolonged bleeding, bruising easily, and swollen nodes. NEURO: Negative for numbness or tingling of hands/feet. No weakness. PHYSICAL EXAMINATION: BP 162/68 Pulse 79 Temp 36.3 C (97.3 F) (Temporal) Resp 16 Ht 165.1 cm (5' 5 ) Wt 70.7 kg(155 lb 12.8 oz) SpO2 98% BMI 25.93 kg/m Wt 70.7 kg (155 lb 12.8 oz) BMI 25.93 kg/m2 Last 3 Encounter Wt Readings: Date: Wt: 06/24/2022 70.7 kg (155 lb 12.8 oz) General appearance:ECOG PERFORMANCE STATUS: 0- Fully active, able to carry on all pre-disease performance w/o restriction. Patient in NAD. Skin: Skin color, texture, turgor normal. No rashes or lesions. Eyes: Anicteric sclera. Pupils are equally round and reactive to light. Extraocular movements are intact. Breast: No palpable breast masses. No nipple change or discharge. Lymph Nodes: No cervical, supraclavicular, axillary or inguinal adenopathy. Oropharynx: Lips, mucosa, and tongue normal. Back: No pain to percussion. Negative SLR test Lungs clear to auscultation, No wheezing or rhonchi Heart: RRR without murmur, gallop, or rubs. Abdomen soft, non-tender. No masses, organomegaly Extremities: No deformities. No edema Neuro: Gait and speech normal. Reflexes normal and symmetric. Muscular strength intact. Sensation grossly intact. Rectal: Deferred : Deferred LABS: No results found for: GLUC, K, NA, CHLOR, CO2, CREAT, BUN, ANION, CA, TPROT, ALB, TBILI, ALKPHOS, AST, ALT No results found for: WBC, RBC, HB, HCT, MCV, MCH, MCHC, RDWCV, PLT, MPV, MPV, NEUT, ABSNEUT, LYMPHP, ABSLYMPH, MONOP, ABSMONO, EOSINP, ABSEOSIN, BASOP, ABSBASO PATH: IMAGING: ASSESSMENT AND PLAN: Moira Godinez is a 72 year old year old female with history of HTN and absloute lymphocytosis. 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 Discussed the natural history and significance of MLUS as well. See back in 2 weeks with repeat CBC Dear Dr. Jaqueline Charles thank you for allowing me to participate in Mrs. Moira Godinez care, if there are any questions or concerns please do not hesitate to contact me at the number below. Melvin Guzman M.D. Hematology/Medical On[facility] [phone] CC: Jaqueline [facility] Diagnosis Lymphocytosis- Primary Lymphocytosis (symptomatic) documented [facility]* Diagnosis Lymphocytosis- Primary Lymphocytosis (symptomatic) [facility] noteNo [employer] Other Evaluation note* Diagnosis Lymphocytosis- Primary Lymphocytosis (symptomatic) documented in [facility]* Diagnosis Lymphocytosis- Primary Lymphocytosis (symptomatic) documented in [facility]* Diagnosis History of total left hip replacement- Primary [facility] N[facility]ative - Reported* Type Description Date Medical History Cervical paraspinal muscle spasm Medical History Abnormal CBC Medical History Diverticulitis Medical History Abnormal ECG Medical History Essential hypertension Medical History Arthritis of left hip Medical History Other contact with a nd (suspected) exposures hazardous to health Surgical History APPENDECTOMY Surgical History RIGHT OVARY REMOVED 1972 Surgical History LAP HYSTERECTOMY WITH L OOPH Hospitalization History SEE SURGICAL HX [employer] Other Summary Purpose Family History No Family History Records FoundNo Family History Records FoundNo Family History Records FoundNo Family History Records FoundNo Family History Records Found Advance Directives No Advanced Directives Records FoundNo Advanced Directives Records FoundNo Advanced Directives Records FoundNo Advanced Directives Records FoundNo Advanced Directives Records Found Additional Source Comments INFORMATION SOURCE (unrecogn ized section and content) DATE CREATED AUTHOR 09/06/2021 [facility] dical Specialist DATE CREATED AUTHOR AUTHOR'S ORGANIZ ATION 08/19/2022 [facility] DATE CREATED AUTHOR AUTHOR'S ORGANIZ ATION 03/19/2024 [facility] DATE CREATED AUTHOR AUTHOR'S ORGANIZ ATION 07/08/2024 [facility] dical Specialists EPIC DATE CREATED AUTHOR AUTHOR'S ORGANIZ ATION 10/19/2024 [facility] Source Comments (unrecognize d section and content) In the event this informatio n is protected by the Federal Confidentiality of Alcohol and Drug Abuse Patient Records regulations: The Federal rules restrict any use of the information to criminally investigate or prosecute any alcohol or drug abuse patient.[facility] the event this information is protected by the Federal Confidentiality of Alcohol and Drug Abuse Patient Records regulations: The Federal rules restrict any use of the information to criminally investigate or prosecute any alcohol or drug abuse patient.[facility] the event this information is protected by the Federal Confidentiality of Alcohol and Drug Abuse Patient Records regulations: The Federal rules restrict any use of the information to criminally investigate or prosecute any alcohol or drug abuse patient.[facility] the event this information is protected by the Federal Confidentiality of Alcohol and Drug Abuse Patient Records regulations: The Federal rules restrict any use of the information to criminally investigate or prosecute any alcohol or drug abuse patient.[facility] the event this information is protected by the Federal Confidentiality of Alcohol and Drug Abuse Patient Records regulations: The Federal rules restrict any use of the information to criminally investigate or prosecute any alcohol or drug abuse patient.[facility] the event this information is protected by the Federal Confidentiality of Alcohol and Drug Abuse Patient Records regulations: The Federal rules restrict any use of the information to criminally investigate or prosecute any alcohol or drug abuse patient.[facility] Teams (unrecognized sec tion and content) [employer] Relationship Specialty Start Date End Date Jaqueline Charles MD [address] [facility] [place] [id number] PCP - General Family Medicine 06/04/22 [employer] Relationship Specialty Start Date End Date Jaqueline Charles MD [address] [facility] [place] [address] PCP - General Family Medicine 06/04/22 [employer] Relationship Specialty Start Date End Date Jaqueline Charles MD [address] [facility] [place] [address] PCP - General Family Medicine 06/04/22 [employer] Relationship Specialty Start Date End Date Jaqueline Charles MD [address] [facility] [place] [id number] PCP - General Family Medicine 06/04/22 [employer] Relationship Specialty Start Date End Date Jaqueline Charles MD [address] [facility] [place] [id number] PCP - General Family Medicine 06/04/22 [employer] Relationship Specialty Start Date End Date Jaqueline Charles MD [address] [facility] [place] [address] PCP - General Family Medicine 06/04/22 [employer] Relationship Specialty Start Date End Date Jaqueline Charles MD [address] [facility] [place] [address] PCP - General Family Medicine 07/02/23 Reason for Visit (unrecogniz ed section and content) Reason Comments Lymphocytosis Follow up Reason Comments Lymphocytosis Reason Comments Transition Of Care Reason Comments Follow-up Lt [place] 07/10/20 [facility] [place] bursitis AM FOR RECORDS PERTAINING TO PATIENTS WHO ARE OR HAVE BEEN ENROLLED IN A CHEMICAL DEPENDENCY/SUBSTANCEABUSE PROGRAM, SOME INFORMATION MAY BE OMITTED. This clinical summary was aggregated from multiple sources. Caution should be exercised in using it in the provision of clinical care. This summary normalizes information from multiple sources, and as a consequence, information in this document may materially change the coding, format and clinical context of patient data. In addition, data may be omitted in some cases. CLINICAL DECISIONS SHOULD BE BASED ON THE PRIMARY CLINICAL RECORDS. [facility]. provides no warranty or guarantee of the accuracy or completeness of information in this document.
[2024-12-06 11:21] LABS: Alanine Aminotransferase 33 U/L (14-59); Albumin Globulin Ratio 1.3; Albumin Level 3.9 g/dL (3.4-5.0); Alkaline Phosphatase 151 U/L (46-116); Anion Gap 12.7; Aspartate Amino Transferase 35 U/L (15-37); BUN Creatinine Ratio 25.6; Bilirubin Total 0.6 mg/dL (0.2-1.0); Calcium 9.2 mg/dL (8.5-10.1); Carbon Dioxide 29.3 mmol/L (21.0-32.0); Chloride 106 mmol/L (98-107); Estimated GFR (African America >60 (>=60 mL/min/1.73m^2); Estimated GFR (Non-African Ame >60 (>=60 mL/min/1.73m^2); Globulin 3.1 g/dL; Glucose 101 mg/dL (74-106); Sodium 144 mmol/L (136-145); TSH W/ REFLEX FT4 1.258 uIU/mL (0.358-3.740)
[2024-12-06 11:31] LABS: Lymphocytes Absolute Manual 7.48 10^3/uL (1.20-3.80); Monocytes Absolute Manual 0.38 10^3/uL (0.30-0.80); Segmented Neut Absolute Manual 5.03 10^3/uL (1.4-6.5)
== END 2024-12-06 10:26 | disposition home or self-care (01) ==
LOC: LAB 10:26
PROVIDERS: PCP Family Medicine; Visit Provider Family Medicine
DX: R53.83 Other fatigue (principal); E55.9 Vitamin D deficiency, unspecified; I10 Essential (primary) hypertension
CPT/HCPCS: 36415; 80053; 82306; 84443; 85007; 85027

== ENCOUNTER 2024-12-15 11:15 | Outpatient (OUT) | payer MEDICARE, OTHER, SELFPAY ==
--- NOTE | 2024-12-15 11:16 | MM_ITS ---
Patient Name: JOSE ALBERTO RAO MR#: [id number] : 1950 Exam Date: 12/15/2024 Ordering Doctor: DR DAPHNEY CHARLES M.D. RADIOLOGY REPORT PROCEDURE: MM TOMOSYNTHESIS SCREENING BI COMPARISON: MM TOMOSYNTHESIS SCREENING BI, 04/30/2023. MG MAMM SCREEN 3D [place] CAD, 09/24/2020. MG MAMM SCREEN [place] W CAD, 04/19/2018. MG MAMM [place] SCRN W CAD DIG, 08/10/2013. INDICATIONS: Screening Calculator Name NCI Breast Cancer Risk Assessment Tool 5 Year Breast Cancer Risk 1.30% Lifetime Breast Cancer Risk 2.80% Personal Breast Cancer No Personal Ovarian Cancer No Treatments None Family Cancers None LOCATION: [facility] BREAST COMPOSITION: The breasts are heterogeneously dense,which may obscure small masses. FINDINGS: RIGHT BREAST: No significant suspicious finding. Benign-appearing lymph nodes are present. Benign-appearing calcifications are present. LEFT BREAST: No significant suspicious finding. Benign-appearing lymph nodes are present. Benign-appearing calcifications are present. DIAGNOSTIC CATEGORY 2--BENIGN FINDING: RECOMMENDATIONS: ROUTINE MAMMOGRAM AND CLINICAL EVALUATION IN 12 MONTHS. PLEASE NOTE: A NORMAL MAMMOGRAM DOES NOT EXCLUDE THE POSSIBILITY OF BREAST CANCER. A CLINICALLY SUSPICIOUS PALPABLE LUMP SHOULD BE BIOPSIED. Dictated by: Gokul Elizabeth MD on 12/15/2024 at 14:18 Approved by: Gokul Elizabeth MD on 12/15/2024 at 14:28
== END 2024-12-15 11:16 | disposition home or self-care (01) ==
LOC: MAMMO 11:15
PROVIDERS: PCP Family Medicine; Visit Provider Family Medicine
DX: Z12.31 Encounter for screening mammogram for malignant neoplasm of breast (principal)
CPT/HCPCS: 77063; 77067

== ENCOUNTER 2025-03-31 09:50 | Emergency (ER) | payer MEDICARE, OTHER, SELFPAY ==
--- OUTSIDE RECORDS SUMMARY | 2025-03-31 10:03 | XMS_ITS | CCD ---
Author Organization [facility] Care Team Providers Care Welder First Class Name Role Phone Jaqueline Charles MD Primary Care Provider MELVIN, DR JAQUELINE Lucas Consulting Unavailable CHARLES, DR JAQUELINE Lucas Primary Care Unavailable CHARLES, DR JAQUELINE Lucas Admitting Unavailable CHARLES, DR JAQUELINE Lucas Attending Unavailable YEHUDA REYES Consulting Unavailable CHARLES, DR JAQUELINE Lucas Primary Care Unavailable CHARLES, DR JAQUELINE Lucas Admitting Unavailable CHARLES, DR JAQUELINE Lucas Attending Unavailable CHARLES, DR JAQUELINE Lucas Consulting Unavailable CHARLES, DR JAQUELINE Lucas Primary Care Unavailable CHARLES, DR JAQUELINE Lucas Admitting Unavailable ZIEBER, DR PACO Leigh Consulting Unavailable CHARLES, DR JAQUELINE Lucas Attending Unavailable CHARLES, DR JAQUELINE Lucas Consulting Unavailable Jaqueline Charles Unavailable Jaqueline Charles MD Primary Care Provider Jaqueline Charles MD Primary Care Provider ELW ALEXANDER Referring Unavailable LEW ALEXANDER Attending Unavailable Corky CASTRO Attending Unavailable SHANNA VICENTE Referring Unavailable JAQUELINE CHARLES Primary Care Unavailable SHANNA VICENTE Referring Unavailable SHANNA VICENTE Attending Unavailable JAQUELINE CHARLES Primary Care Unavailable Allergies Allergy Classification Reported Allergen(s) Allergy Type Date of Onset Reaction(s) Facility (12 sources) Fish; Translations: [FISH CONTAINING PRODUCTS] Propensity to adverse reactions to drug 2 Unknown [facility] (7 sources) Penicillin V; Translations: [PENICILLIN V] Drug Allergy 2 Unknown [facility] (9 sources) Iodine; Translations: [iodine] Drug Allergy 4 Unknown [facility] (1 source) Iodine Drug Allergy 4 [facility] (1 source) Penicillins Drug allergy (disorder) 4 [facility] (6 sources) Penicillin; Translations: [Penicillin] Drug Allergy Unknown [facility] (2 sources) Fish - dietary Propensity to adverse reactions 2 [facility] (2 sources) Penicillin G Drug Allergy 4 Hives [facility] (1 source) Fish - dietary; Translations: [Fish] Propensity to adverse reactions (disorder) [facility] Medications Current Medications Medication Drug Class(es) [...] mg oral tablet (5 sources) Start: 08-07-19 take 2 tablets by mouth every twenty-four [...] Date Episodic/Chronic Diseases of white blood cells (6 sources) Lymphocytosis; Translations: [Lymphocytosis (symptomatic)] Onset: 03-16-2025 Chronic Diverticulosis and diverticulitis (5 sources) Diverticulitis; [...] Test Name Value Interpretation Reference Range Facility CBC W Auto Differential pane l (Bld)on 03-16-2025 Basophils (Bld) [#/Vol] 0.11 10*3/uL High <0.11 [facility] Comment on above: Order Comment: Speci men Type: BLOOD SPECIMEN Ordering Facility: [facility] Address: [address] [place] [address] Performed By: #### 5 7021-8 #### [facility] CLIA [id number] [address] [place] [address] LAB CLIA [id number] [address] [place] [address] [place] Basophils/100 WBC (Bld) 0.7 % Normal [facility] Comment on above: Order Comment: Speci men Type: BLOOD SPECIMEN Ordering Facility: [facility] Address: [address] [place] [address] Performed By: #### 5 7021-8 #### [facility] CLIA [id number] [address] [place] [address] LAB CLIA [id number] [address] [place] [address] [place] Differential cell count method Nom (Bld) Manual Normal [facility] Comment on above: Order Comment: Speci men Type: BLOOD SPECIMEN Ordering Facility: [facility] Address: [address] [place] [address] Performed By: #### 5 7021-8 #### [facility] CLIA [id number] [address] [place] [address] LAB CLIA [id number] [address] [place] [address] [place] Eosinophils (Bld) [#/Vol] 0.00 10*3/uL Normal <0.46 [facility] Comment on above: Order Comment: Speci men Type: BLOOD SPECIMEN Ordering Facility: [facility] Address: [address] [place] [address] Performed By: #### 5 7021-8 #### [facility] CLIA [id number] [address] [place] [address] LAB CLIA [id number] [address] [place] [address] [place] Eosinophils/100 WBC (Bld) 0.0 % Normal [facility] Comment on above: Order Comment: Speci men Type: BLOOD SPECIMEN Ordering Facility: [facility] Address: [address] [place] [address] Performed By: #### 5 7021-8 #### [facility] CLIA [id number] [address] [place] [address] LAB CLIA [id number] [address] [place] [address] [place] Erythrocyte distribution width (RBC) [Ratio] 12.3 % Normal 11.5-15.0 [facility] Comment on above: Order Comment: Speci men Type: BLOOD SPECIMEN Ordering Facility: [facility] Address: [address] [place] [address] Performed By: #### 5 7021-8 #### [facility] CLIA [id number] [address] [place] [address] LAB CLIA [id number] [address] [place] [address] [place] Hematocrit (Bld) [Volume fraction] 39.3 % Normal 36.0-46.0 [facility] Comment on above: Order Comment: Speci men Type: BLOOD SPECIMEN Ordering Facility: [facility] Address: [address] [place] [address] Performed By: #### 5 7021-8 #### [facility] CLIA [id number] [address] [place] [address] LAB CLIA [id number] [address] [place] [address] [place] Hemoglobin (Bld) [Mass/Vol] 13.4 g/dL Normal 11.5-15.5 [facility] Comment on above: Order Comment: Speci men Type: BLOOD SPECIMEN Ordering Facility: [facility] Address: [address] [place] [address] Performed By: #### 5 7021-8 #### [facility] CLIA [id number] [address] [place] [address] LAB CLIA [id number] [address] [place] [address] [place] Lymphocytes (Bld) [#/Vol] 10.95 10*3/uL High 1.00-4.00 [facility] Comment on above: Order Comment: Speci men Type: BLOOD SPECIMEN Ordering Facility: [facility] Address: [address] [place] [address] Performed By: #### 5 7021-8 #### [facility] CLIA [id number] [address] [place] [address] LAB CLIA [id number] [address] [place] [address] [place] Lymphocytes/100 WBC (Bld) 71.5 % Normal [facility] Comment on above: Order Comment: Speci men Type: BLOOD SPECIMEN Ordering Facility: [facility] Address: [address] [place] [address] Performed By: #### 5 7021-8 #### [facility] CLIA [id number] [address] [place] [address] LAB CLIA [id number] [address] [place] [address] [place] MCH (RBC) [Entitic mass] 32.1 pg Normal 26.0-34.0 [facility] Comment on above: Order Comment: Speci men Type: BLOOD SPECIMEN Ordering Facility: [facility] Address: [address] [place] [address] Performed By: #### 5 7021-8 #### [facility] CLIA [id number] [address] [place] [address] LAB CLIA [id number] [address] [place] [address] [place] MCHC (RBC) [Mass/Vol] 34.1 g/dL Normal 30.5-36.0 [facility] Comment on above: Order Comment: Speci men Type: BLOOD SPECIMEN Ordering Facility: [facility] Address: [address] [place] [address] Performed By: #### 5 7021-8 #### [facility] CLIA [id number] [address] [place] [address] LAB CLIA [id number] [address] [place] [address] [place] MCV (RBC) [Entitic vol] 94.2 fL Normal 80.0-100.0 [facility] Comment on above: Order Comment: Speci men Type: BLOOD SPECIMEN Ordering Facility: [facility] Address: [address] [place] [address] Performed By: #### 5 7021-8 #### [facility] CLIA [id number] [address] [place] [address] LAB CLIA [id number] [address] [place] [address] [place] Monocytes (Bld) [#/Vol] 0.11 10*3/uL Normal <0.87 [facility] Comment on above: Order Comment: Speci men Type: BLOOD SPECIMEN Ordering Facility: [facility] Address: [address] [place] [address] Performed By: #### 5 7021-8 #### [facility] CLIA [id number] [address] [place] [address] LAB CLIA [id number] [address] [place] [address] [place] Monocytes/100 WBC (Bld) 0.7 % Normal [facility] Comment on above: Order Comment: Speci men Type: BLOOD SPECIMEN Ordering Facility: [facility] Address: [address] [place] [address] Performed By: #### 5 7021-8 #### [facility] CLIA [id number] [address] [place] [address] LAB CLIA [id number] [address] [place] [address] [place] Neutrophils (Bld) [#/Vol] 4.15 10*3/uL Normal 1.45-7.50 [facility] Comment on above: Order Comment: Speci men Type: BLOOD SPECIMEN Ordering Facility: [facility] Address: [address] [place] [address] Performed By: #### 5 7021-8 #### [facility] CLIA [id number] [address] [place] [address] LAB CLIA [id number] [address] [place] [address] [place] Neutrophils/100 WBC (Bld) 27.1 % Normal [facility] Comment on above: Order Comment: Speci men Type: BLOOD SPECIMEN Ordering Facility: [facility] Address: [address] [place] [address] Performed By: #### 5 7021-8 #### [facility] CLIA [id number] [address] [place] [address] LAB CLIA [id number] [address] [place] [address] [place] Nucleated RBC (Bld) [#/Vol] 10*3/uL Normal <0.01 [facility] Comment on above: Order Comment: Speci men Type: BLOOD SPECIMEN Ordering Facility: [facility] Address: [address] [place] [address] Performed By: #### 5 7021-8 #### [facility] CLIA [id number] [address] [place] [address] LAB CLIA [id number] [address] [place] [address] [place] Nucleated RBC/100 WBC (Bld) [Ratio] 0.0 /100 WBC Normal [facility] Comment on above: Order Comment: Speci men Type: BLOOD SPECIMEN Ordering Facility: [facility] Address: [address] [place] [address] Performed By: #### 5 7021-8 #### [facility] CLIA [id number] [address] [place] [address] LAB CLIA [id number] [address] [place] [address] [place] Ovalocytes LM Ql (Bld) Few Normal [facility] Comment on above: Order Comment: Speci men Type: BLOOD SPECIMEN Ordering Facility: [facility] Address: [address] [place] [address] Performed By: #### 5 7021-8 #### [facility] CLIA [id number] [address] [place] [address] LAB CLIA [id number] [address] [place] [address] [place] Platelet mean volume (Bld) [Entitic vol] 10.0 fL Normal 9.0-12.7 [facility] Comment on above: Order Comment: Speci men Type: BLOOD SPECIMEN Ordering Facility: [facility] Address: [address] [place] [address] Performed By: #### 5 7021-8 #### [facility] CLIA [id number] [address] [place] [address] LAB CLIA [id number] [address] [place] [address] [place] Platelets (Bld) [#/Vol] 200 10*3/uL Normal 150-400 [facility] Comment on above: Order Comment: Speci men Type: BLOOD SPECIMEN Ordering Facility: [facility] Address: [address] [place] [address] Performed By: #### 5 7021-8 #### [facility] CLIA [id number] [address] [place] [address] LAB CLIA [id number] [address] [place] [address] [place] Platelets Estimate (Bld) [#/Vol] Adequate Normal [facility] Comment on above: Order Comment: Speci men Type: BLOOD SPECIMEN Ordering Facility: [facility] Address: [address] [place] [address] Performed By: #### 5 7021-8 #### [facility] CLIA [id number] [address] [place] [address] LAB CLIA [id number] [address] [place], [place] [address] [place] RBC (Bld) [#/Vol] 4.17 10*6/uL Normal 3.90-5.20 [facility] Comment on above: Order Comment: Speci men Type: BLOOD SPECIMEN Ordering Facility: [facility] Address: [address] [place] [address] Performed By: #### 5 7021-8 #### [facility] CLIA [id number] [address] [place] [address] LAB CLIA [id number] [address] [place] [address] [place] RED CELL MORPH Reviewed: see result s of individual morphologies Normal [facility] Comment on above: Order Comment: Speci men Type: BLOOD SPECIMEN Ordering Facility: [facility] Address: [address] [place] [address] Performed By: #### 5 7021-8 #### [facility] CLIA [id number] [address] [place] [address] LAB CLIA [id number] [address] [place] [address] [place] WBC (Bld) [#/Vol] 15.31 10*3/uL High 3.70-11.00 [facility] Comment on above: Order Comment: Speci men Type: BLOOD SPECIMEN Ordering Facility: [facility] Address: [address] [place] [address] Performed By: #### 5 7021-8 #### [facility] CLIA [id number] [address] [place] [address] LAB CLIA [id number] [address] [place] [address] [place] CNOVSPon 03-16-2025 CNOVSP Visit (SP) Office ([facility]) MOIRA GOIDNEZ ([id number]) 1950 F Date Time Provider Department 03/16/25 10:20 AM SHANNA VICENTE During your visit today, we recorded the following information about you: Temperature Pulse Respiration Blood pressure 97.7 degrees 53/minute 16/minute 170/81 Weight 72.3 kg Shanna Vicente MD 03/16/2025 11:52 AM Signed PATIENT NAME: Moira Godinez CLINIC NO.: [id number] ATTENDING PHYSICIAN: Shanna Vicente MD DATE OF SERVICE: 03/16/25 Some of the elements of this note have been copied from my previous progress note dated 03/17/24 . All the information has been reviewed carefully. Diagnosis: MLUS Treatment History: HPI: Moira Godinez is a 72 year old year old female here for follow up. Doing well and no complaints Updated visit 03/17/24: Doing well No major complaints Last mammo in Jun 2023. No B symptoms. 03/16/25: - Doing well - No major complaints - No B symptoms. - Mammogram in November 2024 at [facility]. PAST MEDICAL HISTORY Diagnosis Date Abnormal CBC [...] : Deferred LABS: Glucose (mg/dL) Date Value 03/17/2024 116 Potassium (mmol/L) Date Value 03/17/2024 4.5 Sodium (mmol/L) Date Value 03/17/2024 144 Chloride (mmol/L) Date Value 03/17/2024 106 CO2 (mmol/L) Date Value 03/17/2024 26 Creatinine (mg/dL) Date Value 03/17/2024 0.61 BUN (mg/dL) Date Value 03/17/2024 13 Anion Gap (mmol/L) Date Value 03/17/2024 12 Calcium, Total (mg/dL) Date Value 03/17/2024 10.1 Protein, Total (g/dL) Date Value 03/17/2024 7.3 Albumin (g/dL) Date Value 03/17/2024 4.8 Bilirubin, Total (mg/dL) Date Value 03/17/2024 0.3 Alkaline Phosphatase (U/L) Date Value 03/17/2024 152 AST (U/L) Date Value 03/17/2024 30 ALT (U/L) Date Value 03/17/2024 15 WBC Date Value Ref Range Status 03/17/2024 14.02 (H) 3.70 - 11.00 k/uL Final RBC Date Value Ref Range Status 03/17/2024 4.05 3.90 - 5.20 m/uL Final Hemoglobin Date Value Ref Range Status 03/17/2024 12.9 11.5 - 15.5 g/dL Final Hematocrit Date Value Ref Range Status 03/17/2024 37.7 36.0 - 46.0 % Final MCV Date Value Ref Range Status 03/17/2024 93.1 80.0 - 100.0 fL Final MCH Date Value Ref Range Status 03/17/2024 31.9 26.0 - 34.0 pg Final MCHC Date Value Ref Range Status 03/17/2024 34.2 30.5 - 36.0 g/dL Final RDW-CV Date Value Ref Range Status 03/17/2024 12.5 11.5 - 15.0 % Final Platelet Cou (more content not included)... Normal [facility] Comprehensive metabolic 2000 panelon 03-16-2025 Albumin [Mass/Vol] 4.6 g/dL Normal 3.9-4.9 [facility] Comment on above: Order Comment: Speci men Type: BLOOD SPECIMEN Order[facility] Address: [address] [place] [address] Performed By: #### 2 532-0, 12223-7 #### [facility] CLIA [id number] [address] [place] [address]995 ALP [Catalytic activity/Vol] 143 U/L High 34-123 [facility] Comment on above: Order Comment: Speci men Type: BLOOD SPECIMEN Ordering Facility: [facility] Address: [address] [place] [address] Performed By: #### 2 532-0, 16515-8 #### [facility] CLIA [id number] [address] [place] [address] 13530 ALT [Catalytic activity/Vol] 18 U/L Normal 7-38 [facility] Comment on above: Order Comment: Speci men Type: BLOOD SPECIMEN Ordering Facility: [facility] Address: [address] [place] [id number] Performed By: #### 2 532-0, #### [facility] CLIA [id number] [address] [place] [address] Anion gap [Moles/Vol] 11 mmol/L Normal 8-15 [facility] Comment on above: Order Comment: Speci men Type: BLOOD SPECIMEN Ordering Facility: [facility] Address: [address] [place] [address] Performed By: #### 2 532-0, #### [facility] CLIA [id number] [address] [place] [address]98 AST [Catalytic activity/Vol] 25 U/L Normal 13-35 [facility] Comment on above: Order Comment: Speci men Type: BLOOD SPECIMEN Ordering Facility: [facility] Address: [address] [place] [address] Performed By: #### 2 532-0, #### [facility] CLIA [id number] [address] [place] [address] Bilirubin [Mass/Vol] 0.4 mg/dL Normal 0.2-1.3 [facility] Comment on above: Order Comment: Speci men Type: BLOOD SPECIMEN Ordering Facility: [facility] Address: [address] [place] [address] Performed By: #### 2 532-0, #### [facility] CLIA [id number] [address] [place] [address]478 Calcium [Mass/Vol] 9.8 mg/dL Normal 8.5-10.2 [facility] Comment on above: Order Comment: Speci men Type: BLOOD SPECIMEN Ordering Facility[facility] Address: [address] [place] [address] Performed By: #### 2 532-0, 12220-0 #### [facility] CLIA [id number] [address] [place] [address] 16898 Chloride [Moles/Vol] 104 mmol/L Normal 98-107 [facility] Comment on above: Order Comment: Speci men Type: BLOOD SPECIMEN Ordering Facility[facility] Address: [address] [place] [address] Performed By: #### 2 532-0, 41808-8 #### [facility] CLIA [id number] [address] [place] [address] CO2 [Moles/Vol] 27 mmol/L Normal 22-30 [facility] Comment on above: Order Comment: Speci men Type: BLOOD SPECIMEN Ordering Facility: [facility] Address: [address] [place] [address] Performed By: #### 2 532-0, 79025-8 #### [facility] CLIA [id number] [address] [place] [address] Creatinine [Mass/Vol] 0.52 mg/dL Low 0.58-0.96 [facility] Comment on above: Order Comment: Speci men Type: BLOOD SPECIMEN Ordering Facility[facility] Address: [address] [place] [address] Performed By: #### 2 532-0, 26862-0 #### [facility] CLIA [id number] [address] [place] [address]87 eGFRcr SerPlBld CKD-EPI 2020 97 mL/min/1.73m??? Normal >=60 [facility] Comment on above: Order Comment: Speci men Type: BLOOD SPECIMEN Ordering Facility: [facility] Address: [address] [place], [place] [address] Result Comment: Isabel mated Glomerular Filtration Rate [...] reflect actual GFR. Performed By: #### 2 532-0, 92721-3 #### [facility] CLIA [id number] [address] [place] [address] Glucose [Mass/Vol] 103 mg/dL High 74-99 [facility] Comment on above: Order Comment: Speckevyn nunes Type: BLOOD SPECIMEN Ordering Facility: [facility] Address: [address] [place] [address] Result Comment: The [place] [employer] (ADA) provides guidance for cutoff [...] Standards of Medical Care in Diabetes 2016, [place] [employer]. Diabetes Care. 2016.39(Suppl 1). Performed By: #### 2 532-0, 81334-6 #### [facility] CLIA [id number] [address] [place] [address] Potassium [Moles/Vol] 4.2 mmol/L Normal 3.7-5.1 [facility] Comment on above: Order Comment: Khang nunes Type: BLOOD SPECIMEN Ordering Facility: [facility] Address: [address] [place] [address] Performed By: #### 2 532-0, 29369-2 #### [facility] CLIA [id number] [address] [place] [address]897 Protein [Mass/Vol] 7.0 g/dL Normal 6.3-8.0 [facility] Comment on above: Order Comment: Khang nunes Type: BLOOD SPECIMEN Ordering Facility: [facility] Address: [address] [place] [address] Performed By: #### 2 532-0, 89190-3 #### [facility] CLIA [id number] [address] [place] [address]3923 Sodium [Moles/Vol] 142 mmol/L Normal 136-144 [facility] Comment on above: Order Comment: Speci men Type: BLOOD SPECIMEN Ordering Facility: [facility] Address: [address] [place], [place] [address] Performed By: #### 2 532-0, 29713-7 #### [facility] CLIA [id number] [address] [place] [address] Urea nitrogen [Mass/Vol] 15 mg/dL Normal 7-21 [facility] Comment on above: Order Comment: Speci men Type: BLOOD SPECIMEN Ordering Facility: [facility] Address: [address] [place] [address] Performed By: #### 2 532-0, 95740-0 #### [facility] CLIA [id number] [address] [place] [address] [facility] 03-16-2025 LDH [Catalytic activity/Vol] 249 U/L High 135-214 [facility] Comment on above: Order Comment: Speci men Type: BLOOD SPECIMEN Ordering Facility[facility] Address: [address] [place] [address] Performed By: #### 2 532-0, 10157-1 #### [facility] CLIA [id number] [address] [place] [address]756 XR Hip - left 3 Viewson 06-22 Imaging Result: Xrays taken in the office today saved to the permanent record, AP and lateral weightbearing films, show stable position and alignment of the FORTINO prosthesis. No sign of loosening, fracture or infection. [facility] [employer] Radiology Study observation (narrative) [facility] MRI LSPINE WO CONon 08-14-19 MRI LSPINE WO CON EXAMINATION: MRI LSPINE WO CON HISTORY: Degeneration of lumbar intervertebral [...] YEHUDA REYES Date: 2022-08-14 16:57 Normal [facility] XR CSPINE 2_3 VIEWSon 2022 XR [...] by: PACO KANG Date: 2022-08-08 09:35 Normal [facility] XR LSPINE 2_3 VIEWSon 2022 XR LSPINE [...] PACO KANG Date: 2022-08-08 09:31 Normal [facility] CBC W MANUAL DIFFon 05-27-20 22 ATYPICAL LYMPH # 1.09 103/ul Normal [facility] Comment on above: Performed By: #### C EUGENE #### [facility] [address] [place] [address] Dr. Brennen Barton ATYPICAL LYMPH % 11 % Normal [facility] Comment on above: Performed By: #### C EUGENE #### [facility] [address] [place] [address] Dr. Brennen MILAN # Normal 0.0-0.3 [facility] Comment on above: Performed By: #### C EUGENE #### [facility] [address] [place] [address] Dr. Brennen Barton BAND % Normal 0-5 [facility] Comment on above: Performed By: #### C BCGAVI #### [facility] [address] [place] [address] Dr. Brennen Barton BASOM # 0.00 103/ul Normal 0.00-0.10 [facility] Comment on above: Performed By: #### C EUGENE #### [facility] [address] [place] [address] Dr. Brennen Barton BASOM % 0.0 % Critically low 0.2-2.0 [facility] Comment on above: Performed By: #### C EUGENE #### [facility] [address] [place] [address] Dr. Brennen Barton BLAST # Normal [facility] Comment on above: Performed By: #### C BCMAN #### [facility] [address] [place] [address] Dr. Brennen Barton BLAST % Normal [facility] Comment on above: Performed By: #### C BCGAVI #### [facility] [address] [place] [address] Dr. Brennen Barton CORRECTED WBC Normal 4.0-11.0 [facility] Comment on above: Performed By: #### C BCMAN #### [facility] [address] [place] [address] Dr. Brennen Barton EOS # 0.20 103/ul Normal 0.00-0.70 [facility] Comment on above: Performed By: #### C BCGAVI #### [facility] [address] [place] [address] Dr. Brennen Barton EOS% 2.0 % Normal 0.9-7.0 [facility] Comment on above: Performed By: #### C BCGAVI #### [facility] [address] [place] [address] Dr. Brennen Barton HCT 37.9 % Normal 36.0-48.0 [facility] Comment on above: Performed By: #### C BCGAVI #### [facility] [address] [place] [address] Dr. Brennen Barton HGB 12.8 g/dl Normal 12.0-16.0 [facility] Comment on above: Performed By: #### C BCGAVI #### [facility] [address] [place] [address] Dr. Brennen Barton LYMPHM # 4.06 103/ul Critically high 1.20-3.80 [facility] Comment on above: Performed By: #### C BCMAN #### [facility] [address] [place] [address] Dr. Brennen Barton LYMPHM% 41.0 % Normal 20.5-60.0 [facility] Comment on above: Performed By: #### C EUGENE #### [facility] [address] [place] [address] Dr. Brennen Barton MCH 31.4 pg Normal 26.7-34.0 [facility] Comment on above: Performed By: #### C EUGENE #### [facility] [address] [place] [address] Dr. Brennen Barton MCHC 33.8 g/dl Normal 29.9-35.2 [facility] Comment on above: Performed By: #### C EUGENE #### [facility] [address] [place] [address] Dr. Brennen Barton MCV 92.9 fL Normal 81.0-99.0 [facility] Comment on above: Performed By: #### C EUGENE #### [facility] [address] [place] [address] Dr. Brennen Barton METAMYELOCYTE # Normal [facility] Comment on above: Performed By: #### C EUGENE #### [facility] [address] [place] [address] Dr. Brennen Barton METAMYELOCYTE % Normal [facility] Comment on above: Performed By: #### C EUGENE #### [facility] [address] [place] [address] Dr. Brennen Barton MONOM# 0.69 103/ul Normal 0.30-0.80 [facility] Comment on above: Performed By: #### C EUGENE #### [facility] [address] [place] [address] Dr. Brennen Barton MONOM% 7.0 % Normal 1.7-12.0 [facility] Comment on above: Performed By: #### C EUGENE #### [facility] [address] [place] [address] Dr. Brennen Barton MPV 10.3 fL Normal 9.5-13.5 [facility] Comment on above: Performed By: #### C EUGENE #### [facility] [address] [place] [address] Dr. Brennen Barton MYELOCYTE # Normal [facility] Comment on above: Performed By: #### C EUGENE #### [facility] [address] [place] [address] Dr. Brennen Barton MYELOCYTE % Normal [facility] Comment on above: Performed By: #### C EUGENE #### [facility] [address] [place] [address] Dr. Brennen Barton NRBC Normal [facility] Comment on above: Performed By: #### C EUGENE #### [facility] [address] [address] [address] Brennen Barton PLT 205 103/ul Normal 150-450 [facility] Comment on above: Performed By: #### C EUGENE #### [facility] [address] [place] [address] Dr. Brennen Barton RBC 4.08 106/ul Critically low 4.20-5.40 [facility] Comment on above: Performed By: #### C EUGENE #### [facility] [address] [place] [address] Dr. Brennen Barton RDW 12.1 % Normal 11.0-15.0 [facility] Comment on above: Performed By: #### C EUGENE #### [facility] [address] [place] [address] Dr. Brennen Barton SEG # 3.86 103/ul Normal 1.40-6.50 [facility] Comment on above: Performed By: #### C EUGENE #### [facility] [address] [place] [address] Dr. Brennen Barton SEG % 39.0 % Critically low 43.0-75.0 [facility] Comment on above: Performed By: #### C EUGENE #### [facility] [address] [place] [address] Dr. Brennen Barton SMUDGE CELLS SEEN Normal [facility] Comment on above: Performed By: #### C EUGENE #### [facility] [address] [place] [address] Dr. Brennen Barton WBC 9.9 103/ul Normal 4.0-11.0 [facility] Comment on above: Performed By: #### C [facility] #### [facility] [address] [address] [address] Brennen Barton LIPID PROFILEon 05-27-2022 CHOL-HDL RATIO NORM SEE BELOW Normal [facility] Comment on above: Result Comment: 3.3 - 4.4 LOW RISK 4.4 - 7.1 AVERAGE RISK 7.1 - 11.0 MODERATE RISK >11.0 HIGH RISK Performed By: #### L IPID, CMP #### [facility] [address] [address] [address] Brennen Barton Cholesterol [Mass/Vol] 239 mg/dL Critically high <=200 [facility] Comment on above: Performed By: #### L IPID, CMP #### [facility] [address] [address] [address] Brennen Barton Cholesterol in HDL [Mass/Vol] 66 mg/dL Critically high 40-60 [facility] Comment on above: Performed By: #### L IPID, CMP #### [facility] [address] [address] [address] Brennen Barton Cholesterol in LDL [Mass/Vol] 151.0 mg/dL Normal [facility] Comment on above: Performed By: #### L IPID, CMP #### [facility] [address] [address] [address] Brennen Barton Cholesterol.total/C holesterol in HDL [Mass ratio] 3.6 {ratio} Normal [facility] Comment on above: Performed By: #### L IPID, CMP #### [facility] [address] [address] [address] Brennen Barton HDL NORMAL > or = 60 mg/dl - LO W CARDIOVASCULAR RISK <40 mg/dl - HIGH CARDIOVASCULAR RISK Normal [facility] Comment on above: Performed By: #### L IPID, CMP #### [facility] [address] [address] [address] Brennen Barton LDL CALC NORMAL SEE BELOW Normal [facility] Comment on above: Result Comment: <100 mg/dl OPTIMAL 100 - 129 mg/dl NEAR OR ABOVE OPTIMAL 130 - 159 mg/dl BORDERLINE HIGH 160 - 189 mg/dl HIGH >190 mg/dl VERY HIGH Performed By: #### L IPID, CMP #### [facility] [address] [address] [address] Brennen Barton Triglyceride [Mass/Vol] 110 mg/dL Normal <=150 [facility] Comment on above: Performed By: #### L IPID, CMP #### [facility] [address] [address] [address] Brennen Barton VLDL CALC 22.0 mg/dL Normal [facility] Comment on above: Performed By: #### L IPID, CMP #### [facility] [address] [address] [address] Brennen Barton PROF 14(COMP METB)on 022 Albumin [Mass/Vol] 4.0 g/dL Normal 3.4-5.0 [facility] Comment on above: Performed By: #### L IPID, CMP #### [facility] [address] [place] [address] Dr. Brennen Barton Albumin/Globulin [Mass ratio] 1.2 {ratio} Normal [facility] Comment on above: Performed By: #### L IPID, CMP #### [facility] [address] [place] [address] Dr. Brennen Barton ALP [Catalytic activity/Vol] 141 U/L Critically high 46-116 [facility] Comment on above: Performed By: #### L IPID, CMP #### [facility] [address] [place] [address] Dr. Brennen Barton ALT [Catalytic activity/Vol] 19 U/L Normal 14-59 [facility] Comment on above: Performed By: #### L IPID, CMP #### [facility] [address] [address] [address] Brennen Barton Anion gap [Moles/Vol] 7.9 mmol/L Normal [facility] Comment on above: Performed By: #### L IPID, CMP #### [facility] [address] [place] [address] Dr. Brennen Barton AST [Catalytic activity/Vol] 26 U/L Normal 15-37 [facility] Comment on above: Performed By: #### L IPID, CMP #### [facility] [address] [address] [address] Brennen Barton Bilirubin [Mass/Vol] 0.5 mg/dL Normal 0.2-1.0 [facility] Comment on above: Performed By: #### L IPID, CMP #### [facility] [address] [place] [address] Dr. Brennen Barton Calcium [Mass/Vol] 9.8 mg/dL Normal 8.5-10.1 [facility] Comment on above: Performed By: #### L IPID, CMP #### [facility] [address] [address] [address] Brennen Barton Chloride [Moles/Vol] 103 mmol/L Normal 98-107 [facility] Comment on above: Performed By: #### L IPID, CMP #### [facility] [address] [place] [address] Dr. Brennen Barton CO2 [Moles/Vol] 33.1 mmol/L Critically high 21.0-32.0 [facility] Comment on above: Performed By: #### L IPID, CMP #### [facility] [address] [place] [address] Dr. Brennen Barton Creatinine [Mass/Vol] 0.57 mg/dL Normal 0.55-1.02 [facility] Comment on above: Performed By: #### L IPID, CMP #### [facility] [address] [place] [address] Dr. Brennen Barton EGFR-AF LUXEMBOURGER >60 Normal >=60 [facility] Comment on above: Performed By: #### L IPID, CMP #### [facility] [address] [place] [address] Dr. Brennen Barton EGFR-NON AF LUXEMBOURGER >60 Normal >=60 [facility] Comment on above: Performed By: #### L IPID, CMP #### [facility] [address] [place] [address] Dr. Brennen Barton Globulin (S) [Mass/Vol] 3.4 g/dL Normal [facility] Comment on above: Performed By: #### L IPID, CMP #### [facility] [address] [place] [address] Dr. Brennen Barton Glucose [Mass/Vol] 97 mg/dL Normal 74-106 [facility] Comment on above: Performed By: #### L IPID, CMP #### [facility] [address] [place] [address] Dr. Brennen Barton Potassium [Moles/Vol] 4.0 mmol/L Normal 3.5-5.1 [facility] Comment on above: Performed By: #### L IPID, CMP #### [facility] [address] [place] [address] Dr. Brennen Barton Protein [Mass/Vol] 7.4 g/dL Normal 6.4-8.2 [facility] Comment on above: Performed By: #### L IPID, CMP #### [facility] [address] [place] [address] Dr. Brennen Barton Sodium [Moles/Vol] 140 mmol/L Normal 136-145 [facility] Comment on above: Performed By: #### L IPID, CMP #### [facility] [address] [place] [address] Dr. Brennen Barton Urea nitrogen [Mass/Vol] 11.0 mg/dL Normal 7.0-18.0 [facility] Comment on above: Performed By: #### L IPID, CMP #### [facility] [address] [place] [address] Dr. Brennen Barton Urea nitrogen/Creatinine [Mass ratio] 19.3 mg/mg Normal [facility] Comment on above: Performed By: #### L IPID, CMP #### [facility] [address] [place] [address] Sinus w/o Contrast*on [...] by Vito Sanchez on 09/05/2021 1224 Normal [facility] Specialist Vital Signs Date Time Vital Sign Value Performing Clinician Faci lity 07-05-2024 08:20-0500 Body height 167.6 cm Lew Alexander DO Work Phone: [facility] 07-05-2024 08:20-0500 Body mass index (BMI) [Ratio] 26.63 kg/m2 Lew Alexander DO Work Phone: [facility] 07-05-2024 08:20-0500 Body weight 74.84 kg Lew Alexander DO Work Phone: [facility] 03-17-2024 10:04-0400 Body mass index (BMI) [Ratio] 27.29 kg/m2 Shanna Vicente MD Work Phone: [facility] 03-17-2024 10:04-0400 Body temperature 97.81 [degF] Shanna Vicente MD Work Phone: [facility] 03-17-2024 10:04-0400 Body weight 74.4 kg Shanna Vicente MD Work Phone: [facility] 03-17-2024 10:04-0400 Diastolic blood pressure 83 mm[Hg] Shanna Vicente MD Work Phone: [facility] 03-17-2024 10:04-0400 Heart rate 74 /min Shanna Vicente MD Work Phone: [facility] 03-17-2024 10:04-0400 Respiratory rate 16 /min Shanna Vicente MD Work Phone: [facility] 03-17-2024 10:04-0400 SaO2% (BldA) [Mass fraction] 97 % Shanna Vicente MD Work Phone: [facility] 03-17-2024 10:04-0400 Systolic blood pressure 161 mm[Hg] Shanna Vicente MD Work Phone: [facility] 03-06-2023 15:17-0400 Body height 165.1 cm Melvin Guzman MD Work Phone: [facility] 03-06-2023 15:17-0400 Body temperature 97.39 [degF] Melvin Guzman MD Work Phone: [facility] 03-06-2023 15:17-0400 Body weight 73.48 kg Melvin Guzman MD Work Phone: [facility] 03-06-2023 15:17-0400 Diastolic blood pressure 78 mm[Hg] Melvin Guzman MD Work Phone: [facility] 03-06-2023 15:17-0400 Heart rate 63 /min Melvin Guzman MD Work Phone: [facility] 03-06-2023 15:17-0400 Respiratory rate 18 /min Melvin Guzman MD Work Phone: [facility] 03-06-2023 15:17-0400 SaO2% (BldA) [Mass fraction] 98 % Melvin Guzman MD Work Phone: [facility] 03-06-2023 15:17-0400 Systolic blood pressure 147 mm[Hg] Melvin Guzman MD Work Phone: [facility] 08-26-2022 14:54-0500 Diastolic blood pressure 72 mm[Hg] Nilda Art PA-C Work Phone: [facility] 08-26-2022 14:54-0500 Systolic blood pressure 158 mm[Hg] Nilda Art PA-C Work Phone: [facility] 08-26-2022 14:51-0500 Body height 165.1 cm Nilda Art PA-C Work Phone: [facility] 08-26-2022 14:51-0500 Body temperature 97.39 [degF] Nilda Art PA-C Work Phone: [facility] 08-26-2022 14:51-0500 Body weight 72.48 kg Nilda Art PA-C Work Phone: [facility] 08-26-2022 14:51-0500 Heart rate 73 /min Nilda Art PA-C Work Phone: [facility] 08-26-2022 14:51-0500 Respiratory rate 16 /min Nilda Art PA-C Work Phone: [facility] 08-26-2022 14:51-0500 SaO2% (BldA) [Mass fraction] 97 % Nilda Art PA-C Work Phone: [facility] 08-07-2022 14:45-0500 Body height 166.37 cm Jaqueline Charles Other [facility] Other 08-07-2022 14:45-0500 Body mass index (BMI) [Ratio] 26.22 kg/m2 Jaqueline Charles Other [facility] Other 08-07-2022 14:45-0500 Body weight 72.58 kg Jaqueline Charles Other [facility] Other 08-07-2022 14:45-0500 Diastolic blood pressure 90 mm[Hg] Jaqueline Charles Other [facility] Other 08-07-2022 14:45-0500 SaO2% (BldA) [Mass fraction] 97 % Jaqueline Charles Other [facility] Other 08-07-2022 14:45-0500 Systolic blood pressure 152 mm[Hg] Jaqueline Charles Other [facility] Other 06-24-2022 11:32-0500 Body height 165.1 cm Melvin Guzman MD Work Phone: [facility] 06-24-2022 11:32-0500 Body temperature 97.3 [degF] Melvin Guzman MD Work Phone: [facility] 06-24-2022 11:32-0500 Body weight 70.67 kg Melvin Guzman MD Work Phone: [facility] 06-24-2022 11:32-0500 Diastolic blood pressure 68 mm[Hg] Melvin Guzman MD Work Phone: [facility] 06-24-2022 11:32-0500 Heart rate 79 /min Melvin Guzman MD Work Phone: [facility] 06-24-2022 11:32-0500 Respiratory rate 16 /min Melvin Guzman MD Work Phone: [facility] 06-24-2022 11:32-0500 SaO2% (BldA) [Mass fraction] 98 % Melvin Guzman MD Work Phone: [facility] 06-24-2022 11:32-0500 Systolic blood pressure 162 mm[Hg] Melvin Guzman MD Work Phone: [facility] Encounters Encounter Date Encounter Type Care Provider Facility Start: 03-16-2025 End: 03-16-2025 ambulatory SHANNA VENNEPUREDDY Facility:[facility] Start: 09-20-2024 End: 10-18-2024 ambulatory Shahzadsandrine CASTRO Facility: [facility] Start: 07-05-2024 End: 07-05-2024 Patient encounter procedure Lew Al Benjamin DO Work Phone: [facility] Comment on above: History of total lef t hip replacement (Primary Dx) Start: 07-05-2024 End: 07-05-2024 ambulatory LEW Al BENJAMIN Not Available Start: 03-17-2024 End: 03-17-2024 Office outpatient visit 15 minutes Shanna Vicente MD Work Phone: Hematology/Oncology Comment on above: Lymphocytosis (Prima ry Dx) Start: 03-14-2024 End: 03-15-2024 Telephone encounter Brianna Ratliff RN Work Phone: Hematology/Oncology Comment on above: Transition Of Care Start: 03-06-2023 End: 03-06-2023 ambulatory Melvin Guzman MD Work Phone: Hematology/Oncology Comment on above: Lymphocytosis (Prima ry Dx) Start: 03-06-2023 End: 03-06-2023 Patient encounter procedure Melvin Guzman MD Work Phone: [facility] Start: 11-19-2022 End: 11-19-2022 ambulatory Jaqueline Charles Other [facility] Other Start: 11-19-2022 Telephone encounter Jaqueline Charles [facility] Start: 08-26-2022 End: 08-26-2022 ambulatory Nilda Cordova PA-C Work Phone: Hematology/Oncology Comment on above: Lymphocytosis (Prima ry Dx) Start: 08-26-2022 End: 08-26-2022 Patient encounter procedure Nilda CALDWELL-C Work Phone: [facility] Start: 08-14-2022 Telephone encounter Jaqueline Charles [facility] Start: 08-14-2022 End: 08-15-[address] JAQUELINE CHARLES Facility:[facility] Start: 08-11-2022 End: 08-11-2022 ambulatory Jaqueline Charles Other [facility] Other Start: 08-11-2022 Telephone encounter Jaqueline Charles [facility] Start: 08-08-2022 End: 08-08-2022 ambulatory Jaqueline Charles Other [facility] Other Start: 08-08-2022 Telephone encounter Jaqueline Charles [facility] Start: 08-07-2022 End: 08-08-[address] JAQUELINE CHARLES Facility:[facility] Start: 08-07-2022 Office outpatient vi sit 15 minutes Jaqueline Charles [facility] Start: 06-24-2022 End: 06-24-2022 ambulatory Melvin Guzman MD Work Phone: Hematology/Oncology Comment on above: Lymphocytosis (Prima ry Dx) Start: 06-24-2022 End: 06-24-2022 Patient encounter procedure Melvin Guzman MD Work Phone: [facility] Start: 06-06-2022 Chart abstracting Melvin lynn MD Work Phone: Hematology/Oncology Start: 05-27-2022 End: 05-28-[address] JAQUELINE CHARLES Facility: Procedures Date Procedure Procedure Detail Performing Clinician Start: 07-05-2024 Radex hip unilateral with pelvis 2-3 views Lew Alexander DO Work Phone: Plan of Treatment Date Care Activity Detail Author Start: 03-17-2027 Diabetes Screening Diabetes Screenin g [facility] Start: 03-06-2026 Diabetes Screening Diabetes Screenin g [facility] Start: 08-26-2025 DIABETES SCREEN [facility] Start: 03-16-2025 End: 03-16-2025 Follow-up encounter 03/16/2025 10:30 AM EDT Visit (SP) Office Hematology/Oncology [facility] [place] [address] Shanna Vicente MD [facility] [place] [address] 1 year follow up with lab Hematology/Oncology Comment on above: 1 year follow up wit h lab Start: 03-16-2025 End: 03-16-2025 Patient encounter procedure 03/16/2025 10:15 AM EDT Office Visit [facility] [address] [address] 1 year follow up with lab [facility] Comment on above: 1 year follow up wit h lab Start: 2024 RSV Vaccine (1 - 1-d ose 75+ series) RSV Vaccine (1 - 1-dose 75+ series) [facility] Start: 03-17-2024 End: 06-16-2024 CBC W Auto Differential panel - Blood COMPLETE BLOOD COUNT AND DIFFERENTIAL Lab Routine Lymphocytosis Expected: 03/17/2024, Expires: 06/16/2024 [facility] Work Phone: Comment on above: Expected: 03/17/2024 , Expires: 06/16/2024 Start: 03-17-2024 End: 06-16-2024 Comprehensive metabolic 2000 panel - Serum or Plasma COMPREHENSIVE METABOLIC PANEL Lab Routine Lymphocytosis Expected: 03/17/2024, Expires: 06/16/2024 [facility] Comment on above: Expected: 03/17/2024 , Expires: 06/16/2024 Start: 03-17-2024 End: 03-17-2024 ambulatory 03/17/2024 10:00 AM EDT Visit (SP) Office Hematology/Oncology [address] [place] [address] Shanna Vicente MD [address] [place] [address] JORDYN flores Hematology/Oncology Comment on above: JORDYN flores Start: 03-17-2024 End: 03-17-2024 Patient encounter procedure 03/17/2024 9:45 AM EDT Office Visit [facility] [address] [place] [place] [address] Lab [facility] Comment on above: Lab Start: 03-06-2024 End: 05-06-2024 CBC W Auto Differential panel - Blood CBC + DIFF Lab Routine Lymphocytosis Expected: 03/06/2024 (Approximate), Expires: 05/06/2024 [facility] Work Phone: Comment on above: Expected: 03/06/2024 (Approximate), Expires: 05/06/2024 Start: 03-06-2024 End: 05-06-2024 Comprehensive metabolic 2000 panel - Serum or Plasma COMP METABOLIC PANEL Lab Routine Lymphocytosis Expected: 03/06/2024 (Approximate), Expires: 05/06/2024 [facility] Work Phone: Comment on above: Expected: 03/06/2024 (Approximate), Expires: 05/06/2024 Start: 02-21-2024 Covid-19 Vaccine () Covid-19 Vaccine () [facility] Start: 02-21-2024 Influenza vaccination Influenza Vacc ine (#1) [facility] Start: 06-22-2023 Advance Directive Discussion Advance Directive Discussion [facility] Start: 02-26-2023 End: 04-28-2023 CBC W Auto Differential panel - Blood CBC + DIFF Lab Routine Lymphocytosis Expected: 02/26/2023 (Approximate), Expires: 04/28/2023 [facility] Work Phone: Comment on above: Expected: 02/26/2023 (Approximate), Expires: 04/28/2023 Start: 02-26-2023 End: 04-28-2023 Comprehensive metabolic 2000 panel - Serum or Plasma COMP METABOLIC PANEL Lab Routine Lymphocytosis Expected: 02/26/2023 (Approximate), Expires: 04/28/2023 [facility] Work Phone: Comment on above: Expected: 02/26/2023 (Approximate), Expires: 04/28/2023 Start: 02-20-2023 Influenza vaccination Influenza Vacc ine (#1) [facility] Start: 08-22-2022 End: 10-22-2022 CBC W Auto Differential panel - Blood CBC + DIFF Lab Routine Lymphocytosis Expected: 08/22/2022 (Approximate), Expires: 10/22/2022 [facility] Work Phone: Comment on above: Expected: 08/22/2022 (Approximate), Expires: 10/22/2022 Start: 08-22-2022 End: 10-22-2022 Comprehensive metabolic 2000 panel - Serum or Plasma COMP METABOLIC PANEL Lab Routine Lymphocytosis Expected: 08/22/2022 (Approximate), Expires: 10/22/2022 [facility] Work Phone: Comment on above: Expected: 08/22/2022 (Approximate), Expires: 10/22/2022 Start: 08-22-2022 End: 10-22-2022 FLOW CYTOMETRY PERIPHERAL BLOOD LEUK/LYMPH (FCLEUK) FLOW CYTOMETRY PERIPHERAL BLOOD LEUK/LYMPH (FCLEUK) Lab Routine Lymphocytosis Expected: 08/22/2022 (Approximate), Expires: 10/22/2022 [facility] Work Phone: Comment on above: Expected: 08/22/2022 (Approximate), Expires: 10/22/2022 Start: 08-22-2022 End: 10-22-2022 Lactate dehydrogenase [Enzymatic activity/volume] in Serum or Plasma LD LACTATE DEHYDRO Lab Routine Lymphocytosis Expected: 08/22/2022 (Approximate), Expires: 10/22/2022 [facility] Work Phone: Comment on above: Expected: 08/22/2022 (Approximate), Expires: 10/22/2022 Start: 06-22-2022 ADVANCE DIRECTIVE DISCUSSION ADVANCE DIRECTIVE DISCUSSION [facility] Start: 06-22-2022 DEPRESSION ASSESSMENT DEPRESSION ASS ESSMENT [facility] Start: 04-09-2022 COVID-19 VACCINE (5 - Booster for Pfizer series) COVID-19 VACCINE (5 - Booster for Pfizer series) [facility] Start: 04-09-2022 Covid-19 Vaccine (5 - Pfizer series) Covid-19 Vaccine (5 - Pfizer series) [facility] Start: 02-20-2022 Influenza vaccination INFLUENZA (#1) [facility] Start: 06-22-2021 ADVANCE DIRECTIVE DISCUSSION ADVANCE DIRECTIVE DISCUSSION [facility] Start: 06-22-2021 DEPRESSION ASSESSMENT DEPRESSION ASS ESSMENT [facility] Start: 10-20-2014 SHINGRIX VACCINE (2 of 3) SHINGRIX VACCINE (2 of 3) [facility] Start: 2014 BONE DENSITY BONE DENSITY [facility] Start: 2014 Bone Density Screening Bone Density Screening [facility] Start: 2014 Pneumococcal Vaccine : 65+ (1 - PCV) Pneumococcal Vaccine: 65+ (1 - PCV) [facility] Start: 2014 Pneumococcal Vaccine : 65+ (1 of 1 - PCV) Pneumococcal Vaccine: 65+ (1 of 1 - PCV) [facility] Start: 2014 Pneumococcal Vaccine : 65+ Years (1 of 1 - PCV) Pneumococcal Vaccine: 65+ Years (1 of 1 - PCV) [facility] Start: 2014 PNEUMOCOCCAL: 65+ (1 - PCV) PNEUMOCOCCAL: 65+ (1 - PCV) [facility] Start: 2014 Screening for osteoporosis Bone Density Screening [facility] Start: 1999 SHINGRIX VACCINE (1 of 2) SHINGRIX VACCINE (1 of 2) [facility] Start: 1994 COLOGUARD (FIT-DNA) COLOGUARD (FIT-D NA) [facility] Start: 1994 Colonoscopy COLONOSCOPY [facility] Start: 1994 COLORECTAL CANCER SCREENING COLORECTAL CANCER SCREENING [facility] Start: [address] [facility] Start: 1994 DIABETES SCREEN DIABETES SCREEN [facility] Start: 1994 FECAL OCCULT BLOOD FECAL OCCULT BLOO D [facility] Start: 1994 Lipid 1996 panel - S honey or Plasma Lipid Screening [facility] Start: 1994 Lipid panel Lipid Screening [facility] Start: 1994 LIPID SCREEN LIPID SCREEN [facility] Start: 1994 Screening for malign ant neoplasm of colon [facility] Start: 1994 [facility] Start: 1989 Mammography [facility] Start: 1989 Screening for malign ant neoplasm of breast Mammogram Screening [facility] Start: 1968 Urine microalbumin profile [facility] Start: 1967 Anxiety Screening Anxiety Screening [facility] Start: 1967 Depression Screening Depression Scre ening [facility] Start: 1967 HEPATITIS C SCREENING HEPATITIS C [facility] Start: 1967 Hepatitis C screening Hepatitis C [facility] Start: 1949 COVID-19 VACCINE (#1) COVID-19 VACCI NE (#1) [facility] Start: 1949 Screening for malign ant neoplasm of colon [facility] Immunizations Immunization Date Immunization Notes Care Provider Fa cility 04-18-2022 Seasonal trivalent influenza vaccine, adjuvanted, preservative free Melvin Guzman MD Work Phone: [facility] 04-18-2022 influenza virus vacc ine, unspecified formulation Melvin Guzman MD Work Phone: [facility] 04-18-2021 influenza (aIIV4) vaccine, age 65+ yr, quadrivalent, PF (FLUAD QUADRIVALENT) Melvin Guzman MD Work Phone: [facility] 03-06-2020 Seasonal trivalent influenza vaccine, adjuvanted, preservative free Melvin Guzman MD Work Phone: [facility] 04-05-2019 Seasonal trivalent influenza vaccine, adjuvanted, preservative free Melvin Guzman MD Work Phone: [facility] 04-15-2018 influenza, high dose seasonal, preservative-free Melvin Guzman MD Work Phone: [facility] 05-21-2017 influenza, high dose seasonal, preservative-free Melvin Guzman MD Work Phone: [facility] 08-25-2014 zoster vaccine, live Melvin poe MD Work Phone: [facility] Payers Date Payer Category Payer Private Health Insurance [employer] [id number] 2021 Unknown MMO MMO MEDICARE SUPPLEMENT [id number] 2021-Present [phone] [address] [place] [address] Indemnity [id number] 2014 Medicare [id number] 1959 Medicare [id number] 1959 Unknown [id number] 1949 Unknown [id number] 1949 Unknown [id number] 1949 Unknown [id number] 1949 Unknown [id number] 1949 Unknown [id number] 1949 Unknown [id number] Social History Date Type Detail Facility Start: 06-06-2022 Tobacco smoking status NHIS Ex-smoker [facility] History of tobacco use Current smoker [facility] History of tobacco use Cigarette Smoker [facility] History of tobacco use Passive smoker [facility] Start: 06-06-2022 End: 07-02-2023 Tobacco use and exposure Smokeless tobacco non-user [facility] Start: 06-06-2022 End: 07-05-2024 Alcohol intake Current drinker of alcohol (finding) [facility] Start: 1950 Sex Assigned At Not on file C [facility] Start: 06-24-2022 End: 07-02-2023 Tobacco smoking status NHIS Never smoked tobacco [facility] Start: 06-24-2022 End: 03-17-2024 Alcohol intake Ex-drinker (finding) [facility] Start: 03-06-2023 End: 07-05-2024 Sex Assigned At [facility] [employer] [facility] Start: 03-06-2023 End: 07-05-2024 History of Social function [facility] National Score (1-100), lower number is lower risk 63 [facility] Start: 1950 Sex assigned at Female [facility] Start: 06-25-2023 Gender identity Identifies as female gender (finding) [facility] Clinical Notes 06-24-2022 to 03-16-2025 Lew Alexander DO - 07/05/2024 8:30 AM ESTPatient InstructionsShanna Vicente MD - 03/17/2024 10:00 AM EDTTelephone Encounter - Brianna Ratliff RN - 03/14/2024 10:49 AM EDT Note Date & Type Note Facility 03-16-2025 Note HNO ID: [id number] Author: SHANNA VICENTE MD Service: ? Author Type: Physician Type: Progress Notes Filed: 03/16/2025 11:52 Note Text: PATIENT NAME: Moira Gdoinez [facility] NO.: [id number] ATTENDING PHYSICIAN: Shanna Vicente MD DATE OF SERVICE: 03/16/25 Some of the elements of this note have been copied from my previous progress note dated 03/17/24 . All the information has been reviewed carefully. Diagnosis: MLUS Treatment History: HPI: Moira Godinez is a 72 year old year old female here for follow up. Doing well and no complaints Updated visit 03/17/24: Doing well No major complaints Last mammo in Jun 2023. No B symptoms. 03/16/25: - Doing well - No major complaints - No B symptoms. - Mammogram in November 2024 at [facility]. PAST MEDICAL HISTORY Diagnosis Date Abnormal CBC [...] : Deferred LABS: Glucose (mg/dL) Date Value 03/17/2024 116 Potassium (mmol/L) Date Value 03/17/2024 4.5 Sodium (mmol/L) Date Value 03/17/2024 144 Chloride (mmol/L) Date Value 03/17/2024 106 CO2 (mmol/L) Date Value 03/17/2024 26 Creatinine (mg/dL) Date Value 03/17/2024 0.61 BUN (mg/dL) Date Value 03/17/2024 13 Anion Gap (mmol/L) Date Value 03/17/2024 12 Calcium, Total (mg/dL) Date Value 03/17/2024 10.1 Protein, Total (g/dL) Date Value 03/17/2024 7.3 Albumin (g/dL) Date Value 03/17/2024 4.8 Bilirubin, Total (mg/dL) Date Value 03/17/2024 0.3 Alkaline Phosphatase (U/L) Date Value 03/17/2024 152 AST (U/L) Date Value 03/17/2024 30 ALT (U/L) Date Value 03/17/2024 15 WBC Date Value Ref Range Status 03/17/2024 14.02 (H) 3.70 - 11.00 k/uL Final RBC Date Value Ref Range Status 03/17/2024 4.05 3.90 - 5.20 m/uL Final Hemoglobin Date Value Ref Range Status 03/17/2024 12.9 11.5 - 15.5 g/dL Final Hematocrit Date Value Ref Range Status 03/17/2024 37.7 36.0 - 46.0 % Final MCV Date Value Ref Range Status 03/17/2024 93.1 80.0 - 100.0 fL Final MCH Date Value Ref Range Status 03/17/2024 31.9 26.0 - 34.0 pg Final MCHC Date Value Ref Range Status 03/17/2024 34.2 30.5 - 36.0 g/dL Final RDW-CV Date Value Ref Range Status 03/17/2024 12.5 11.5 - 15.0 % Final Platelet Count Date Value Ref Range Status 03/17/2024 184 150 - 400 k/uL Final MPV Date Value Ref Range Status 03/17/2024 10.2 9.0 - 12.7 fL Final Abs Neut (Segs + Bands) Date Value Ref Range Status 03/17/2024 3.51 1.45 - 7.50 k/uL Final Lymphocytes % Date Value Ref Range Status 03/17/2024 71.0 % Final A (more content not included)... [facility] 07-05-2024 History of Present illness Narrative Post [...] exercise, weight management and fall precautions reviewed. 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 Numerous questions were answered. Follow-up in 1 year for repeat xray and exam, sooner if concerned. The patient is discharged in stable condition. documented in this encounter [facility] 03-17-2024 Instructions Shanna Vicente MD - 03/17/2024 10:11 AM EDT Ordered labs F/u in 1 year. documented in this encounter [facility] 03-17-2024 History of Present illness Narrative PATIENT NAME: Moira Godinez CLINIC NO.: [id number] ATTENDING PHYSICIAN: Shanna Vicente MD DATE OF [...] Range Status 03/06/2023 2.0 % Final Abs Hoke Date Value Ref Range Status 03/06/2023 0.22 [...] do not hesitate to contact me at [phone]. Shanna Vicente MD Hematology/Medical Oncology [facility] I spent a total of 20 minutes on the date of the service which included preparing to see the patient, [id number] patient care, completing clinical documentation, obtaining and/or reviewing separately obtained history, performing a medically appropriate examination, counseling and educating the patient/family/caregiver, and ordering medications, tests, or procedures CC: Jaqueline Charles MD documented in this encounter [facility] 03-14-2024 Telephone encounter Note Labs pending if you agree. Brianna Ratliff RN [facility] 03-14-2024 Miscellaneous Notes Labs pending if you agree. Brianna Ratliff RN documented in this encounter [facility] 03-06-2023 History of Present illness Narrative PATIENT NAME: Moira Godinez CLINIC NO.: [id number] ATTENDING PHYSICIAN: Melvin Guzman MD DATE OF [...] Range Status 08/26/2022 4.0 % Final Abs Hoke Date Value Ref Range Status 08/26/2022 0.45 [...] do not hesitate to contact me at [phone]. Melvin Guzman MD Hematology/Medical Oncology [facility] Kevyn spent a total of 20 minutes on the date of the service which included preparing to see the patient, [id number] patient care, completing clinical documentation, obtaining and/or reviewing separately obtained history, performing a medically appropriate examination, counseling and educating the patient/family/caregiver, and ordering medications, tests, or procedures CC: Jaqueline Charles MD documented in this encounter [facility] 08-26-2022 History of Present illness Narrative PATIENT NAME: Moira Godinez CLINIC NO.: [id number] ATTENDING PHYSICIAN: Melvin Guzman MD DATE OF [...] Jaqueline Charles MD documented in this encounter [facility] 08-08-2022 Evaluation note Encounter Date Diagnosis Assessment Notes Jul, Lumbar degenerative disc disease (ICD-10 - M51.36) [employer] [facility] 02-16-2023 Evaluation note* Encounter Date Diagnosis Assessment Notes Treatment Notes Treatment Clinical Notes Jul, Cervical pain (neck) (ICD-10 - M54.2) Discussed that she has failed many conservative measures. Will check XR. Gave order to pt for PT. Jul, Left sciatic nerve pain (ICD-10 - M54.32) Add steroids to replace NSAIDs temporarily. Has tried chiropractor, massage, walking, stretching, NSAIDs, heat and ice. [facility] Other 01-03-2023 History of Present illness Narrative* Melvin Guzman MD - 06/24/2022 11:36 AM EST PATIENT NAME: Moira Godinez CLINIC NO.: [id number] ATTENDING PHYSICIAN: Melvin Guzman MD DATE OF [...] number below. Melvin Guzman M.D. Hematology/Medical Oncology [facility] [phone] CC: Jaqueline Charles [facility] Diagnosis Lymphocytosis- Primary Lymphocytosis (symptomatic) documented in this encounter [facility] note* Diagnosis Lymphocytosis- Primary Lymphocytosis (symptomatic) documented in this encounter [facility]No [facility]No[facility] [employer] Other Evaluation note* Diagnosis Lymphocytosis- Primary Lymphocytosis (symptomatic) documented in this encounter [facility] note* Diagnosis Lymphocytosis- Primary Lymphocytosis (symptomatic) documented in this encounter [facility] note* Diagnosis History of total left hip [...] L OOPH Hospitalization History SEE SURGICAL HX [facility] [employer] Other Summary Purpose Family History No Family History Records FoundNo Family History Records FoundNo Family History Records FoundNo Family History Records FoundNo Family History Records Found Advance Directives No Advanced Directives Records FoundNo Advanced Directives Records FoundNo Advanced Directives Records FoundNo Advanced Directives Records FoundNo Advanced Directives Records Found Additional Source Comments INFORMATION SOURCE (unrecogn ized section and content) DATE CREATED AUTHOR 09/06/2021 [facility] DATE CREATED AUTHOR AUTHOR'S ORGANIZ ATION 08/19/2022 [facility] DATE CREATED AUTHOR AUTHOR'S ORGANIZ ATION 07/08/2024 [facility] EPIC DATE CREATED AUTHOR AUTHOR'S ORGANIZ ATION 10/19/2024 [facility] DATE CREATED AUTHOR AUTHOR'S ORGANIZ ATION 03/17/2025 [facility] Source Comments (unrecognize d section and content) In the event this informatio n is protected by the Federal Confidentiality of Alcohol and Drug Abuse Patient Records regulations: The Federal rules restrict any use of the information to criminally investigate or prosecute any alcohol or drug abuse patient.[facility] the event this information is protected by the Federal Confidentiality of Alcohol and Drug Abuse Patient Records regulations: The Federal rules restrict any use of the information to criminally investigate or prosecute any alcohol or drug abuse patient.[facility] the event this information is protected by the Federal Confidentiality of Alcohol and Drug Abuse Patient Records regulations: The Federal rules restrict any use of the information to criminally investigate or prosecute any alcohol or drug abuse patient.[facility] the event this information is protected by the Federal Confidentiality of Alcohol and Drug Abuse Patient Records regulations: The Federal rules restrict any use of the information to criminally investigate or prosecute any alcohol or drug abuse patient.[facility] the event this information is protected by the [facility] Confidentiality of Alcohol and Drug Abuse Patient Records regulations: The Federal rules restrict any use of the information to criminally investigate or prosecute any alcohol or drug abuse patient.[facility] the event this information is protected by the Federal Confidentiality of Alcohol and Drug Abuse Patient Records regulations: The Federal rules restrict any use of the information to criminally investigate or prosecute any alcohol or drug abuse patient.[facility] Care Teams (unrecognized sec tion and content) [employer] Relationship Specialty Start Date End Date Jaqueline Charles MD [address] [place] [address] PCP - General Family Medicine 06/04/22 [employer] Relationship Specialty Start Date End Date Jaqueline Charles MD [address] [place] [address] PCP - General Family Medicine 06/04/22 [employer] Relationship Specialty Start Date End Date Jaqueline Charles MD [address] [place] [address] PCP - General Family Medicine 06/04/22 [employer] Relationship Specialty Start Date End Date Jaqueline Charles MD [address] [place] [phone] PCP - General Family Medicine 06/04/22 [employer] Relationship Specialty Start Date End Date Jaqueline Charles MD [address] [place] [address] PCP - General Family [facility] 06/04/22 [employer] Relationship Specialty Start Date End Date Jaqueline Charles MD [address] [place] [address] PCP - General Family [facility] 06/04/22 [employer] Relationship Specialty Start Date End Date Jaqueline Charles MD [address] [place] [facility] [phone] PCP - General Family Medicine 07/02/23 Reason for Visit (unrecogniz ed section and content) Reason Comments Lymphocytosis Follow up Reason Comments Lymphocytosis Reason Comments Transition Of Care Reason Comments Follow-up [facility] 07/10/20 [facility] troch bursitis AM FOR RECORDS PERTAINING TO [...] BE BASED ON THE PRIMARY CLINICAL RECORDS. [employer] provides no warranty or guarantee of the accuracy or completeness of information in this document.
[2025-03-31 10:07] VITALS: PULSE 96; TEMP 37; O2SAT 97; BMI 26.5
[2025-03-31 10:12] VITALS: BP 188/100
--- NOTE | 2025-03-31 10:16 | XR_ITS ---
The [address] [address] Patient Name: JOSE ALBERTO RAO MRN: [id number] date: 1950 Sex: F Assigned Patient Location: ER Current Patient Location: ER Accession/Order Number: [id number] Exam Date: 03/31/2025 10:40 Report Date: 03/31/2025 10:58 At the request of: MADI JANE MD Procedure: XR abdomen 1V SINGLE VIEW ABDOMEN COMPARISON: CT 08/31/2019 CLINICAL DATA: Constipation for the past few days. Supine views of the abdomen and pelvis were obtained. There is air within nondistended small and large bowel loops. There is mild to moderate stool at the rectum. No soft tissue masses are identified. No suspect renal calculi are seen. There is slight thoracolumbar dextroscoliotic curvature as well as osteopenia and degenerative changes. There is mild sclerosis at the SI joints. Patient has a left hip prosthesis. XR/XR abdomen 1V IMPRESSION: NONOBSTRUCTIVE BOWEL GAS PATTERN WITH MILD TO MODERATE RECTOSIGMOID STOOL. Impression dictated by: Itzel Mota M.D. 03/31/2025 10:58 AM Dictation Location: [place] [address] Electronically authenticated by: [id number] Y Date: 03/31/2025 10:58
--- NOTE | 2025-03-31 10:17 | ED.GENADUL1 ---
HPI HPI - General Adult General Chief complaint: Abdominal Pain Stated complaint: difficulty urinating, hemorrhoids Time Seen by Provider: 03/31/25 09:53 Source: patient and family Mode of arrival: walk-in Limitations: no limitations History of Present Illness HPI narrative: 74-year-old female presents for 2 issues. She states that she has not urinated since 4:00 this morning and she feels like she needs to. Secondly she has not had a bowel movement for 3 days and that is unusual for her. She states now she has some hemorrhoids. She has had them before but has been many years. No bleeding. No vomiting or abdominal pain. Related Data Home Medications ?Medication ?Instructions ?Recorded ?Confirmed losartan 25 mg tablet 25 mg PO DAILY 03/31/25 03/31/25 metoprolol succinate 50 mg 50 mg PO DAILY 03/31/25 03/31/25 tablet,extended release 24 hr Previous Rx's ?Medication ?Instructions ?Recorded hydrocortisone-pramoxine 1 %-1 % 1 applic IL BID PRN hemorrhoids 03/31/25 rectal cream #30 grams Allergies Allergy/AdvReac Type Severity Reaction Status Date / Time Penicillins Allergy Intermediate Hives Verified 03/31/25 10:07 iodine/fish Allergy Severe Anaphylaxis Uncoded 03/31/25 10:07 Review of Systems ROS Narrative A ten point review of systems is negative except as noted above. PFSH PFSH Social History Little interest or pleasure in doing things: not at all Feeling down, depressed, or hopeless: not at all Exam Narrative Exam Narrative: Nurses note and vital signs reviewed and patient is not hypoxic. General:The patient appears well and in no apparent distress.Patient is resting comfortably on cart. Skin:Warm, dry, no pallor noted.There is no rash noted. Head:Normocephalic, atraumatic Eye: Normal conjunctiva, no drainage Ears, Nose, Mouth, and Throat: oral mucosa is moist. Nares patent. Cardiovascular:Regular Rate and Rhythm Respiratory:Patient is in no distress, no accessory muscle use, lungs are clear to auscultation, no wheezing, rales or rhonchi Back:non-tender GI: Soft and nontender. She has nonthrombosed external hemorrhoids. No bleeding. Musculoskeletal: The patient has no evidence of calf tenderness, no pitting edema, symmetrical pulses noted bilaterally Neurological:A&O, normal speech Psychiatric:Cooperative Constitutional Vital Signs, click to edit/add: Last Vital Signs Temp 98.6 F 03/31/25 10:07 Pulse 96 H 03/31/25 10:07 Resp 18 03/31/25 10:07 BP 188/100 H 03/31/25 10:12 Pulse Ox 97 03/31/25 10:07 O2 Del Method Room Air 03/31/25 10:07 Course Vital Signs Vital signs: Vital Signs Temperature 98.6 F 03/31/25 10:07 Pulse Rate 96 H 03/31/25 10:07 Respiratory Rate 18 03/31/25 10:07 Pulse Oximetry 97 03/31/25 10:07 Oxygen Delivery Method Room Air 03/31/25 10:07 Temperature 98.6 F 03/31/25 10:07 Pulse Rate 96 H 03/31/25 10:07 Respiratory Rate 18 03/31/25 10:07 Blood Pressure 188/100 H 03/31/25 10:12 Pulse Oximetry 97 03/31/25 10:07 Oxygen Delivery Method Room Air 03/31/25 10:07 Medical Decision Making MDM Narrative Medical decision making narrative: She was able to urinate here and urinalysis is negative. She was given enema with excellent results and she is feeling much better and is able to be discharged home. She was prescribed ProctoCream. Treatment diagnosis and follow-up were discussed with the patient. Differential Diagnosis Differential Diagnosis: Constipation, impaction, UTI, urinary retention Lab Data Lab results reviewed: Yes I reviewed the patient's lab results Labs: Lab Results 03/31/25 Range/Units 10:29 Urine Color Lt. yellow (YELLOW) Urine Clarity Clear (CLEAR) Urine pH 6.0 (5.0-9.0) Ur Specific [place] 1.010 (1.005-1.025) Urine Protein Negative (NEG/TRACE) mg/dL Urine Glucose (UA) Negative (NEGATIVE) mg/dL Urine Ketones Negative (NEGATIVE) mg/dL Urine Occult Blood Negative (NEGATIVE) Urine Nitrite Negative (NEGATIVE) Urine Bilirubin Negative (NEGATIVE) Urine Urobilinogen 0.2 (0.2-1.0) EU/dL Ur Leukocyte Esterase Negative (NEGATIVE) Urine RBC None seen (0-2) #/HPF Urine WBC None seen (NONE SEEN) #/HPF Ur Squamous Epith Cells Rare (NONE/RARE) #/LPF Urine Crystals None seen (None Seen) #/HPF Urine Bacteria None seen (NONE SEEN) #/HPF Urine Casts None seen (NONE SEEN) #/LPF Urine Mucus None seen (NONE SEEN) Discharge Plan Discharge Chief Complaint: Abdominal Pain Clinical Impression: Constipation, External hemorrhoids Patient Disposition: Home, Self-Care Time of Disposition Decision: 12:16 Condition: Good Mode of Transportation: Private Vehicle Prescriptions / Home Meds: New hydrocortisone-pramoxine 1-1 % cream 1 applic IL BID PRN (Reason: hemorrhoids) Qty: 30 0RF No Action losartan 25 mg tablet 25 mg PO DAILY metoprolol succinate 50 mg tablet extended release 24 hr 50 mg PO DAILY Print Language: Pakistani Instructions: Constipation (ED), Hemorrhoids (ED) Referrals: Jaqueline Sierra MD [Primary Care Provider, Family Practice] - 1 week
[2025-03-31 10:53] LABS: Glucose Urine UA NEGATIVE (NEGATIVE)
[2025-03-31 11:18] LABS: Cast Seen? NONE SEEN #/LPF (NONE SEEN); Crystals Seen? None Seen #/HPF (None Seen)
[2025-03-31 12:27] VITALS: BP 168/89; PULSE 76; O2SAT 96
--- NOTE | 2025-03-31 15:14 | PC.NURSE ---
soap suds enema given with results
== END 2025-03-31 12:32 | disposition home or self-care (01) ==
PROVIDERS: Emergency Provider Emergency Medicine; PCP Family Medicine
DX: K59.00 Constipation, unspecified (principal); K64.4 Residual hemorrhoidal skin tags; R39.198 Other difficulties with micturition
CPT/HCPCS: 74018; 81001; 99284

== ENCOUNTER 2025-04-20 09:22 | Outpatient (OUT) | payer MEDICARE, OTHER, SELFPAY ==
--- OUTSIDE RECORDS SUMMARY | 2025-04-11 05:48 | XMS_ITS | Continuity of Care Document ---
Author Organization [facility] Address [address] [place] [address] Phone Care Team Providers Care Criminal Investigator Name Role Phone Jaqueline Sierra MD Primary Care Provider Krishna Vicente MD Attending Provider Marcelo Bardales DO Attending Provider Juana Guo CMA Attending Provider UnavailJaqueline Turcios MD Attending Provider Care Teams Patient Care Team Team Status: Active Member Role/Relationship Status Dates Robert Pierson DO Specialist Active Kizzy Redman Care ProviderActive Patient Care Team Team Status: Active Member Role/Relationship Status Dates Jaqueline Sierra MD Primary Care Provider Active Start: March 16, 2025 Janes Reed ProviderActiveStart: March 16, 2025 Patient Care Team Team Status: Active Member Role/Relationship Status Dates Jaqueline Sierra MD Primary Care Provider Active Start: March 31, 2025 Marcelo Bardales DOAttdomingo ProviderActiveStart: March 31, 2025 Patient Care Team Team Status: Active Member Role/Relationship Status Dates Jaqueline Sierra MD Primary Care Provider Active Start: April 04, 2025 Juana Guo CMAAttdomingo ProviderActiveStart: April 04, 2025 Patient Care Team Team Status: Inactive Member Role/Relationship Status Dates Jaqueline Sierra MD Primary Care Provider Active Start: April 11, 2025 End: April 11, 2025Janes Redman ProviderActiveStart: April 11, 2025 End: April 11, 2025 Chief Complaint and Reason for Visit Chief Complaint Admit Date Amb Documentation April 04, 2025 1 0:15am [facility] f/u April 11, 2025 8 :24am Reason for Visit Admit Date Lumbar pain with radiation down leg Octo 2024 8:24am Paresthesia of right lower extremity Mar francisco2024 8:24am Allergies, Adverse Reactions, Alerts Allergen Type Severity Reaction Last Updated Verified Status Fish Containing Products Allergy Unknown Hives April 11, 2025 8:29am Yes Active Penicillins Allergy Unknown Hives April 11, 2025 8:29am Yes Active Social History Smoking Status Status Start Date End Date Date of Observa tion Never smoked tobacco (finding) August 27, 2023 8:44am Observation Status Observation Response Date of Response Legal Sex [facility] (finding) [facility] 1949 Family History Relationship Condition Age at Onset Recorded Date/T jose father Hypertension Unknown motherMalignant neoplasmUnknown Problems Active Problems Problem Diagnosis/Recorded Date Onset Date Stat Screening mammogram for breast cancer December 06, 2024 8:55am Unknown Active Fatigue December 06, 2024 8:53am Unknown Activ e Wellness examination August 27, 2023 12:21pm Unknown Active Paresthesia of right lower extremity April 11 9:00am Unknown Active Essential (primary) hypertension August 25, 2023 2:00p m Unknown Active Lumbar pain with radiation down leg April 11, 2025 9:00am Unknown Active Vitamin D deficiency December 06, 2024 8:54am Unknown Active Medications Medication Status Dose Units Route Directions Qty Days Refills S tart Date Stop Date End Date Reason(s) Instructions Adherence Losartan 25 mg tablet Discontinued [address] 2023 9:39amNovember 2023 9:30amTAKE 1 TABLET BY MOUTH EVERY DAYMetoprolol Succinate 50 mg tablet extended release 24 hrDiscontinued0.ROUTE.XQVFGTZ472Dfqcrqcg 2023 9:39amNovember 2023 5:59pmTAKE 1 TABLET BY MOUTH EVERY DAYLosartan 25 mg tabletDiscontinued0.ROUTE .[address] 2023 9:29amAugust 2024 10:44amTAKE 1 TABLET BY MOUTH EVERY DAYMetoprolol Succinate 50 mg tablet extended release 24 hr Discontinued0.ROUTE.LVPFCSG752Hyalwbwy 2023 5:59pmAugust 2024 8:22am TAKE 1 TABLET BY MOUTH EVERY DAYLosartan 25 mg tabletDiscontinued0.ROUTE.COMPLEX 2024 10:44amOctober 2024 9:05amTAKE 1 TABLET BY MOUTH EVERY DAYMetoprolol Succinate 50 mg tablet extended release 24 hrActive0.ROUTE.COMPLEX 2024 8:22amTAKE 1 TABLET BY MOUTH EVERY DAYComplies with drug therapyLosartan 25 mg xszlzgSnohabksclmf28RJEIUwqdqYojgxulp 2023 1:00am August 20, 2023 9:39amMetoprolol Succinate 50 mg tablet extended release 24 evOvifuopvdohf42VZRXIuwftYbvvldsg 2023 1:00amFebruary 2023 9:39am Tizanidine 2 mg ejsojfBsioimceunlk1DXAGZyurp times dailyAugust 25, 2023 1:00am August 27, 2023 9:42amFreeTextSi tablet as needed Orally Three times a day; Note: Source Status: Taking; Provider: Rigo Parsons ( )Losartan 50 mg cmsczsEruiuw56ZQOBKeykv904Wfqkfcz 2024 9:04amComplies with drug therapy Immunizations Immunization Event Date Not Given Reason Dose Number Iron Handler Lot Number Reason(s) Given Vaccine Information Statement (VIS) Detail Administration Location COVID-19 mRNA, Comirnatmichelle (Novadiol) July 25, 2020 COVID-19 mRNA, Comirnatmichelle (Novadiol)August 15, 2020influenza, unspecified formulationOctober 2018influenza, unspecified formulationSeptember 2019 Relevant Diagnostic Tests and/or Laboratory Data Laboratory Results Test Collection Date/Time Result Date/Time Result Interpretation Reference Range Result Comment Performing Site Basophils # (Auto) March 16, 2025 10:51am March 16, 2025 10:51am 0.11 k/uL Above high normal <0.11 Alanine Aminotransferase (ALT/SGPT)March 16, 2025 10:51amSeptember 2024 10:51am18 U/L7-38Lactate DehydrogenaseSept2024 10:51amSept2024 11:22bs839 U/LAbove high tpedbf598-549Hkboc Other CastsOctober 2024 10:29amNONE SEEN #/LPFNONE SEENBasophils (%) (Auto)March 16, 2025 10:51amSept2024 10:51am0.7 %AlbuminSept2024 10:51am March 16, 2025 10:51am4.6 g/dL3.9-4.9Urine Other CrystalsOctober 2024 10:29amNone Seen #/HPFNone SeenEosinophils # (Auto)March 16, 2025 10:51amSept2024 10:51am0.00 k/uL<0.46Aspartate Amino Transf (AST/SGOT)March 16, 2025 10:51amSept2024 10:51am25 U/L13-35 Urine BacteriaOctober 2024 10:29amNONE SEEN #/HPFNONE SEENEosinophils (%) (Auto)March 16, 2025 10:51amSept2024 10:51am0.0 %Total BilirubinSept2024 10:51amSept2024 10:51am0.4 mg/dL 0.2-1.3Urine BilirubinOctober 2024 10:29amNEGATIVENEGATIVEHemoglobin March 16, 2025 10:51amSept2024 10:51am13.4 g/dL11.5-15.5Carbon Dioxide LevelSept2024 10:51amSept2024 10:51am27 mmol/L 22-30Urine Occult BloodOctober 2024 10:29amNEGATIVENEGATIVELymphocytes # (Auto)March 16, 2025 10:51amSept2024 10:51am10.95 k/uLAbove high normal1.00-4.00Chloride LevelSept2024 10:51amSept2024 10:13pp621 mmol/Z76-702Uqzbn AppearanceOctober 2024 10:29amCLEARCLEAR Lymphocytes (%) (Auto)March 16, 2025 10:51amSeptember 2024 10:51am 71.5 %CreatinineSept2024 10:51amSept2024 10:51am0.52 mg/dLBelow low normal0.58-0.96Urine ColorOctober 2024 10:29amLT. YELLOW YELLOWMonocytes # (Auto)March 16, 2025 10:51amSept2024 10:51am 0.11 k/uL<0.87Random GlucoseSept2024 10:51amSept2024 10:67fb427 mg/dLAbove high fsnikw62-45Wgi [place] Diabetes Association (ADA) provides guidance for cutoff values for fasting glucose andrandom glucose. The ADA defines fasting as no caloric intake for at least 8 hours. Fasting plasma gl ucose results between 100 to 125 mg/dL indicate increased risk for diabetes (prediabetes).Fasting plasma glucose results greater than or equal to 126 mg/dL meet the criteria for diagnosis of diabetes. In the absence of unequivocal hyperglycemia, results should be confirmed by repeat testing. In a patient with classic symptoms of hyperglycemia or hyperglycemic crisis, random plasma glucose resultsgreater than or equal to 200 mg/dL meet the criteria for diagnosis of diabetes.Reference: [employer] in Diabetes 2016, [place] Diabetes Association. Diabetes Care. 2016.39(Suppl 1).Urine Glucose (UA)March 31, 2025 10:29amNEGATIVE mg/dLNEGATIVENeutrophils # (Auto)March 16, 2025 10:51amSept2024 10:51am4.15 k/uL1.45-7.50Potassium LevelSept2024 10:51amSept2024 10:51am4.2 mmol/L3.7-5.1Urine Ketones March 31, 2025 10:29amNEGATIVE mg/dLNEGATIVENeutrophils (%) (Auto)March 16, 2025 10:51amSept2024 10:51am27.1 %Serum Total ProteinSept2024 10:51amSept2024 10:51am7.0 g/dL6.3-8.0Urine Leukocyte EsteraseOct2024 10:29amNEGATIVENEGATIVENucleated Red Blood Cells # March 16, 2025 10:51amSept2024 10:51am<0.01 k/uL<0.01Sodium LevelSept2024 10:51amSept2024 10:24hq151 mmol/C578-593 Urine MucusOctober 2024 10:29amNONE SEENNONE SEENOvalocytesSept2024 10:51amSept2024 10:51amFewBlood Urea NitrogenSept2024 10:51amSept2024 10:51am15 mg/dL7-21Urine NitriteOctober 2024 10:29amNEGATIVENEGATIVEPlatelet CountSept2024 10:51amSept2024 10:93em885 k/gC197-536Bruqcihd PhosphataseSept2024 10:51amSept2024 10:20jk042 U/LAbove high yywmul12-291Caicl pHOctober 2024 10:29am6.05.0-9.0Mean Corpuscular HemoglobinSept2024 10:51amSept2024 10:51am32.1 pg26.0-34.0Calcium LevelSept2024 10:51amSept2024 10:51am9.8 mg/dL8.5-10.2Urine ProteinOctober 2024 10:29amNEGATIVE mg/dLNEG/TRACEMean Corpuscular Hemoglobin Concent March 16, 2025 10:51amSept2024 10:51am34.1 g/dL30.5-36.0Anion GapSept2024 10:51amSept2024 10:51am11 mmol/L8-15Urine RBCOctober 2024 10:29amNONE SEEN #/HPF0-2Mean Corpuscular VolumeSept2024 10:51amSept2024 10:51am94.2 fL80.0-100.0Estimated GFR (CKD-EPI)March 16, 2025 10:51amSept2024 10:51am97 mL/min/1.73m???>=60Estimated Glomerular Filtration Rate (eGFR) is calculated using the 2020 CKD-EPI creatinine equation. This equation utilizes serum creatinine, sex, and age as parameters. The creatinine assay has traceable calibration to isotope dilution-mass spectrometry. Refer to KDIGO guidelines for clinical interpretation. In patients with unstable renal function, e.g. those with acute kidney injury, the eGFRmay not accurately reflect actual GFR.Urine Specific GravityOctober 2024 10:29am1.0101.005-1.025Red Blood Count March 16, 2025 10:51amSept2024 10:51am4.17 m/uL3.90-5.20Urine Squamous Epithelial CellsOctober 2024 10:29amRARE #/LPFNONE/RAREHematocrit March 16, 2025 10:51amSept2024 10:51am39.3 %36.0-46.0Urine UrobilinogenOctober 2024 10:29am0.2 EU/dL0.2-1.0Monocytes (%) (Auto) March 16, 2025 10:51amSept2024 10:51am0.7 %Urine WBCOctober 2024 10:29amNONE SEEN #/HPFNONE SEENCorrected White Blood CountSept2024 10:51amSept2024 10:51am15.31 k/uLAbove high normal 3.70-11.00Nucleated RBC Relative Count (auto)March 16, 2025 10:51am March 16, 2025 10:51am0.0 /100{WBC}Red Cell Distribution WidthSept2024 10:51amSept2024 10:51am12.3 %11.5-15.0Mean Platelet VolumeSept2024 10:51amSept2024 10:51am10.0 fL9.0-12.7 Differential CommentSept2024 10:51amSept2024 10:51am ManualPlatelet EstimateSept2024 10:51amSept2024 10:51am AdequateNormal RBC MorphologySept2024 10:51amSept2024 10:51amReviewed: see results of individual morphologies Vital Signs Vital Reading Result Reference Range Collection Date/Time Height 66 [in_i] April 11, 2025 8:66coUxxbzq70.66 [facility] 20[facility] 8:27amHeart Rate76 /ouz25-069Tddjokp 2024 8:38amBP Ghvbpknt299 mm[facility]Hg]100[facility] 8:38amBP Mqzmdxvps74 mm[Hg]60-100Oct[facility] 2024 8:38amBMI (Body Mass Index)25.4 kg/t8Wvffucp 2024 8:27am Advance Directives Advance Directive Response Recorded Date/ Time Advance Directives No August 23 11:04am Insurance Providers Guarantor Moira Jose Herbert Address [address] [place], [place] [id number] Info.Home Phone: Payer Group Member ID Coverage Type Subscriber Relationship to Subscriber Effective Date Expiration Date MMO Id: [id number] A Robinson Id: [id number] [address] [place], [place] [address] Home Phone: SelfMedicare [id number] A Robinson Id: [id number] [address] [place], [place] [address] Home Phone: Self Encounters Encounter Location(s) Arrival/Admit Date Discharge/Departure Date Discharge/Departure Disposition Provider(s) Non-patient / Non-visit -[facility] March 16, 2025 10:51am Mikayla Reed-patient / Soi-dhbmu[facility] March 31, 2025 10:29amVianey Kruger-[facility] 10:15amJeanette Yusufparted Physician/Provider Office Visit-[facility] 2024 8:24am April 11, 2025 9:46amDischarged to home care or self care (routine discharge)Jaqueline Sierra MD Recent Diagnosis Onset Date Admit Date Lumbar pain with radiation down leg Unknown April 11, 2025 8:24am Paresthesia of right lower extremity Unknown April 11, 2025 8:24am Assessments Diagnosis Onset Date Resolution Status Admit Date Lumbar pain with radiation down leg acuteOctober 2024 8:24amParesthesia of right lower extremityacuteOctober 2024 8:24am Plan of Treatment Future Tests Future scheduled test information is unavailable Pending Tests Test Name Ordered Date Scheduled Date MR lumbar spine wo con April 11, 2025 9:00am Future Visits Future appointment information is unavailable Future Procedures Future procedure information is unavailable Future Medications Future medication information is unavailable Patient Instructions Instruction Admit Date Low back pain in adults April 11 8:24am
--- NOTE | 2025-04-20 09:25 | MR_ITS ---
The [address] [address] Patient Name: JOSE ALBERTO RAO MRN: [id number] date: 1950 Sex: F Assigned Patient Location: MRI Current Patient Location: MRI Accession/Order Number: [id number] Exam Date: 04/20/2025 10:15 Report Date: 04/20/2025 16:05 At the request of: DAPHNEY CHARLES MD Procedure: MR lumbar spine wo con MRI lumbar spine performed without contrast INDICATION: Paresthesias of right lower extremity, low back pain, Right foot numbness COMPARISON: Comparison 2022 was not immediately available at time of dictation. FINDINGS: Lumbar vertebral heights are maintained. There is dextrocurvature at the thoracolumbar junction and compensatory levocurvature of the lower lumbar spine. Multilevel Modic type II changes notably L2-L3 and L4-5. Multilevel moderate severe disc space narrowing L1-L3. Moderate disc space narrowing L4-5. A mild disc space narrowing L3-4 and L5-S1. Multilevel facet arthropathy identified throughout the lumbar spine. There is the conus medullaris terminates at mid L2 vertebral body. There is focal redundancy of the cauda equina nerve roots at the L3 level due to the high-grade/severe central canal stenosis at L3-4. Otherwise nerve roots appear grossly unremarkable. Left sided renal cyst noted. T12: Facet arthropathy. No disc protrusion central canal or neural from narrowing. This level only visualized sagittal images. T12-L1: Broad-based disc osteophyte complex with facet arthropathy. Moderate canal and moderate neural foraminal narrowing. L1-L2: Circumferential disc osteophyte complex with endplate spurring extending into both foraminal zones. Evidence of bilateral facet arthropathy. There is moderate central canal stenosis. There is fcei-pq-xoqptune subarticular recess narrowing greatest on the left. There is moderate to severe left neural from narrowing and moderate right neural foraminal narrowing. L2-L3: Circumferential disc bulge with diffuse endplate osteophytosis and advanced facet arthropathy. This results in moderate severe central canal and subarticular recess narrowing. There is moderate bilateral neural foraminal narrowing. L3-4: Circumferential disc bulge with endplate osteophytosis and advanced facet arthropathy. This causes severe central canal and subarticular recess narrowing. Moderate bilateral neural foraminal narrowing. L4-5: Circumferential disc bulge with moderate facet arthropathy. Moderate to severe central canal stenosis. Severe right subarticular recess narrowing. Moderate left subarticular recess narrowing, correlate with right L5 radiculopathy.. Otherwise moderate right neural from narrowing and mild left neural from narrowing. L5-S1: Broad-based disc osteophyte complex asymmetric towards the left extending to left foraminal zone with advanced facet arthropathy. There is moderate left neural foraminal narrowing with the disc osteophyte appears to contact the periaortic to contact the exiting left L5 nerve root. Afsd-nb-pdjskoso right neural foraminal narrowing. Ghgl-dc-nfrjgtcq central canal stenosis. There is wnus-ds-izryhaka subarticular recess crowding. MR/MR lumbar spine wo con IMPRESSION: Multilevel degenerative changes with severe canal stenosis L3-4 and moderate severe canal stenosis at L4-5. Additionally L4-5 there is subarticular recess narrowing, severe on the right which may contribute to the right-sided L5 radiculopathy Otherwise multilevel facet arthropathy identified throughout much of the lumbar spine. Impression dictated by: Louie Klein M.D. 04/20/2025 4:05 PM Dictation Location: [place] [address] Electronically authenticated by: [id number] Y Date: 04/20/2025 16:05
--- OUTSIDE RECORDS SUMMARY | 2025-04-20 09:26 | XMS_ITS | CCD ---
Author Organization [facility] Care Team Providers Care Integrated Program Teacher Name Role Phone Jaqueline Charels MD Primary Care Provider MELVIN, DR JAQUELINE Lucas Consulting Unavailable MELVIN, DR JAQUELINE Lucas Primary Care Unavailable CHARLES, DR JAQUELINE Lucas Admitting Unavailable CHARLES, DR JAQUELINE Lucas Attending Unavailable YEHUDA REYES Consulting Unavailable MELVIN, DR JAQUELINE Lucas Primary Care Unavailable MELVIN, DR JAQUELINE Lucas Admitting Unavailable CHARLES, DR JAQUELINE Lucas Attending Unavailable MELVIN, DR JAQUELINE Lucas Consulting Unavailable MELVIN, DR JAQUELINE Lucas Primary Care Unavailable MELVIN, DR JAQUELINE Lucas Admitting Unavailable ZIEBER, DR PACO Leigh Consulting Unavailable MELVIN, DR JAQUELINE Lucas Attending Unavailable MELVIN, DR JAQUELINE Lucas Consulting Unavailable Jaqueline Charles Unavailable Jaqueline Charles MD Primary Care Provider [phone] Jaqueline Charles MD Primary Care Provider [phone] LEW ALEXANDER Referring Unavailable LEW ALEXANDER Attending Unavailable Corky CASTRO Attending Unavailable SHANNA VICENTE Referring Unavailable JAQUELINE CHARLES Primary Care Unavailable SHANNA VICENTE Referring Unavailable SHANNA VICENTE Attending Unavailable JAQUELINE CHARLES Primary Care Unavailable Jaqueline Charles MD Primary Care Provider Shanna Vicente MD Attending Provider Marcelo Bardales DO Attending Provider Juana Guo CMA Attending Provider UnavailJaqueline Turcios MD Attending Provider Allergies Allergy ClassificationReported Allergen(s)Allergy TypeDate of OnsetReaction(s) Facility (13 sources)Fish; Translations: [FISH CONTAINING PRODUCTS]Propensity to adverse reactions to zdkk47-46-9369EeavkbwMwvrgrcve Clinic (7 sources)Penicillin V; Translations: [PENICILLIN V]Drug Hinqkaz31-87-0882 [facility] ([facility] sources)Iodine; Translations: [iodine]Drug Girplzt03-66-9996RpiwkgyRxumtyuxx Clinic (1 source)IodineDrug Qjhwybs98-16-9756[facility] (2 sources)PenicillinsDrug allergy (disorder)44-63-2440MimbpVpsGreen [facility] (6 sources)Penicillin; Translations: [Penicillin]Drug AllergyUnknownFisher [facility] (2 sources)Fish - dietaryPropensity to adverse qeufkbvtk02-21-1506[facility] (2 sources)Penicillin GDrug Cptckig59-99-7872LxvmmEHYH [facility] (1 source)Fish - dietary; Translations: [Fish]Propensity to adverse reactions (disorder)[facility] Medications Current Medications MedicationDrug Class(es)DatesSig (Normalized)Sig (Original)aspirin 81 mg delayed release oral tablet (2 sources)Platelet Aggregation Inhibitor, Nonsteroidal Anti-inflammatory Drug take 1 tablet by mouth once dailyaspirin 81 MG EC tablet Take 81 mg by mouth 1 (one) time each day at the same time Activeclindamycin 300 mg oral capsule (6 sources)Lincosamide AntibacterialStart: 07-05-2024 End: 13-24-1715fqxcdbiwhzv (Cleocin) 300 MG capsule Indications: History of total left hip replacement Take 1 capsule (300 mg) by mouth in the morning and 1 capsule (300 mg) at noon and 1 capsule (300 mg) in the evening and 1 capsule (300 mg) before bedtime. Do all this for 7 days. 28 capsule 07/05/2024 07/12/2024 ActiveStart: 07-05-2024 End: 40-96-5955ydzc 2 capsules by mouth once, then take 1 capsule by mouth once at mealtimeclindamycin (Cleocin) 300 MG capsule Indications: History of total left hip replacement Take 2 capsules (600 mg) by mouth 1 time for 1 dose 2 tabs PO once 30-60 mins before dental procedure with food2 capsule 4 07/05/2024 07/05/2024 ActiveStart: 53-14-4936mxmouzdqczb (Cleocin) 300 MG capsule Indications: History of total left hip replacement Take two caps one prior to appointment 2 capsule 2 07/02/2023 Activelosartan potassium 50 mg oral tablet (17 sources)Angiotensin 2 Receptor BlockerStart: 81-20-5929aaqc 1 tablet by mouth once dailyLosartan 50 mg tablet Active 50 MG PO Daily 90 2 April 11, 2025 9:04am Complies with drug therapyStart: 08-20-2023 End: 38-73-4120eazi 1 tablet by mouth once dailyLosartan 25 mg tablet Discontinued 0 .ROUTE .COMPLEX 90 2 January 27, 2025 10:44am April 11, 2025 9:05am TAKE 1 TABLET BY MOUTH EVERY DAYStart: 05-24-2022 End: 01-19-5135iwso 1 tablet by mouth once dailyLosartan 25 mg tablet Discontinued 25 MG PO Daily August 19, 2023 1:00am August 20, 2023 9:3 9amComment on above:Take 25 mg by mouth once daily.24 hr metoprolol succinate 50 mg extended release oral tablet (16 sources)beta-Adrenergic BlockerStart: 08-20-2023 End: 31-30-9140rdxo 1 tablet by mouth once dailyMetoprolol Succinate 50 mg tablet extended release 24 hr Active 0 .ROUTE .COMPLEX 90 2 January 8:22am TAKE 1 TABLET BY MOUTH EVERY DAY Complies with drug therapyStart: 02-89-2983qsyb 1 tablet by mouth every twenty-four hours in the morning metoprolol succinate XL (Toprol-XL) 50 MG 24 hr tablet Take 50 mg by mouth in the morning. 05/23/2023 ActiveStart: 05-24-2022 End: 18-64-2292zirj 1 tablet by mouth once dailyMetoprolol Succinate 50 mg tablet extended release 24 hr Discontinued 50 MG PO Daily July 1:00am August 20, 2023 9:39amComment on above:Take 50 mg by mouth once daily.predniSONE 20 mg oral tablet (5 sources)Start: 81-96-8592fbhp 2 tablets by mouth every twenty-four hours predniSONE 20 MG 2 tablets Orally Once a day for 5 days Jul, Active sulfamethoxazole 800 mg / trimethoprim 160 mg oral tablet (5 sources)Dihydrofolate Reductase Inhibitor Antibacterial, Sulfonamide Antimicrobialtake 1 tablet by mouth every twelve hoursSulfamethoxazole- Trimethoprim 800-160 MG 1 tablet Orally Twice a day Active Completed/Discontinued Medications MedicationDrug Class(es)DatesSig (Normalized)Sig (Original)fluticasone (2 sources)Corticosteroid End: 14-99-9803pksvufrsxpu propionate (FLONASE NASAL) Use in the nose. 0 08/26/2022 Discontinued (Discontinued by Patient)fluticasone propionate (FLONASE NASAL) Use in the nose. 0 ActiveComment on above:Use in the nose.tiZANidine 2 mg oral tablet (8 sources)Central alpha-2 Adrenergic AgonistStart: 08-25-2023 End: 17-66-3531ghpc 1 tablet by mouth three times daily as neededTizanidine 2 mg tablet Discontinued 2 MG PO Three times daily August 25, 2023 1:00am August 27, 2023 9:42am FreeTextSi tablet as needed Orally Three times a day; Note: Source Status: Taking; Provider: Melvin Parsons ( )Start: 05-27-2022 End: 57-98-4436praz 1 tablet by mouth once daily at bedtimetiZANidine (ZANAFLEX) 2 mg tablet Take 2 mg by mouth daily at bedtime. 0 05/27/2022 08/26/2022 Disco ntinued (Discontinued by Patient)take 1 tablet by mouth every eight hours tiZANidine HCl 2 MG 1 tablet as needed Orally Three times a day ActiveComment on above:Take 2 mg by mouth daily at bedtime. Problems Problem ClassificationProblemDateDocumented DateEpisodic/ChronicDiseases of white blood cells (6 sources)Lymphocytosis; Translations: [Lymphocytosis (symptomatic)]Onset: 68-71-4578OtnzshtGqrbyazetdlajw and diverticulitis (5 sources)Diverticulitis; Translations: [Diverticulitis of intestine, part unspecified, without perforation or abscess without bleeding]ChronicEssential hypertension (10 sources)Essential (primary) hypertension; Translations: [Essential hypertension]Onset: 55-47-7754ThyiyrmZrxrspu and fatigue (1 source)Fatigue; Translations: [Other fatigue]93-75-2223VaxhljizRznwvusasmf deficiencies (1 source)Vitamin D deficiency; Translations: [Vitamin D deficiency, unspecified]76-19-3269LizwlarFwojpesvhtaivg (5 sources)Arthritis of left hip; Translations: [Unilateral primary osteoarthritis, left hip]ChronicOther connective tissue disease (2 sources)History of total replacement of left hip joint; Translations: [Presence of left artificial hip joint]86-63-6857AecwbypBlpvi connective tissue disease (5 sources)Spasm; Translations: [Other muscle spasm]EpisodicOther nervous system disorders (2 sources)Paresthesia of right lower limb; Translations: [Paresthesia of skin] 07-47-2083IrwlnuwqYoguj screening for suspected conditions (not mental disorders or infectious disease) (11 sources)Full blood count abnormal; Translations: [Other specified abnormal findings of blood chemistry]49-99-4948XwrpmiwcPuyppnde codes; unclassified (5 sources)Other contact with and (suspected) exposures hazardous to health; Translations: [Other contact withand (suspected) exposures hazardous to health] EpisodicSpondylosis; intervertebral disc disorders; other back problems (10 sources)Other intervertebral disc degeneration, lumbar region; Translations: [Degeneration of lumbar intervertebral disc]Onset: 03-77-2469LsmuvqzWxyewzyrypy; intervertebral disc disorders; other back problems (14 sources)Cervicalgia; Translations: [Sciatica, left side]Onset: 08-07-2022 Episodic Results Test NameValueInterpretationReference RangeFacilityLaboratory - Chemistry and Chemistry - challengeOrdered By: Marcelo Bardales on 93-01-5270Kbuszqqgh Ql (U) NegativeNEGKindred Hospital DaytonGlucose (U) [Mass/Vol]Negative NEGATIVEWayne HospitalKetones Ql (U)NegativeNEGKindred Hospital DaytonpH (U)6.0 [pH]5.0-9.0[facility] Specific gravity (U) [Rel density]1.0101.005-1.025Wayne HospitalUrobilinogen Qn (U)0.2 {Koko'U}/dL0.2-1.0Wayne HospitalLaboratory - Specimen informationOrdered By: Marcelo Bardales on 03-31-2025 Appearance (U)CLEARCLEARFUniversity Hospitals St. John Medical CenterColor (U)LT. YELLOW YELLOWFirelands Regional Medical CenterLaboratory - UrinalysisOrdered By: Marcelo Bardales on 37-96-0433Leoxbqqgk esterase Test strip Ql (U)NegativeNEGATIVE Wayne HospitalMucus Ql (Urine sed)NONE SEENNONE SEENWayne HospitalNitrite Ql (U)NegativeNEGATIVEWayne HospitalProtein Ql (U)NegativeNEG/TRACEWayne HospitalNo Panel InformationOrdered By: Marcelo Bardales on 96-62-8012Pbson BacteriaNONE SEEN #/HPF NONE SEENWayne HospitalUrine Occult BloodNegativeNEGATIVE Wayne HospitalUrine Other CastsNONE SEEN #/LPFNONE SEEN Wayne HospitalUrine Other CrystalsNone Seen #/HPFNone Seen Wayne HospitalUrine RBCNONE SEEN #/HPF0-2FUniversity Hospitals St. John Medical CenterUrine Squamous Epithelial CellsRARE #/LPFNONE/RAREWayne HospitalUrine WBCNONE SEEN #/HPFNONE SEENWayne HospitalBasophils Auto (Bld) [#/Vol]Ordered By: Shanna Vicente on 36-22-0941Vgskxnaqs (Bld) [#/Vol]0.11 10*3/uLHigh<0.11Wayne HospitalBasophils/100 WBC Auto (Bld)Ordered By: Shanna Vicente on 03-16-2025 Basophils/100 WBC (Bld)0.7 %Wayne HospitalBlood manual differential comment interpretation narrativeOrdered By: Shanna Vicente on 14-57-7944Mrnbgv differential comment Colt (Bld) [Interp]ManualWayne HospitalCBC W Auto Differential panel (Bld)on 04-28-1433Zsilqbxlb (Bld) [#/Vol]0.11 10*3/uLHigh<0.11CUniversity Hospitals Ahu[facility] on above:Order Comment: Specimen Type: BLOOD SPECIMEN Ordering Facility: [facility] Address: [address], [place] [address]Bryppmnui By: #### 66959-2 #### [facility] CLIA [id number] [address] [place] [address] [facility] CLIA [id number] [address] [place], [place] [address] [place] AMERICABasophils/100 WBC (Bld)0.7 % NormalThe [facility] of [facility] on above:Order Comment: Specimen Type: BLOOD SPECIMEN Ordering Facility: [facility] Address: [address] [place], [place] [address]Performed By: #### 63005-4 #### [facility] CLIA [id number] [address] [place] [address] LAB CLIA [id number] [address] [place], [place] [address] [place] AMERICADifferential cell count method Nom (Bld)ManualNormalCUniversity Hospitals Ahuja Medical Center on above:Order Comment: Specimen Type: BLOOD SPECIMEN Ordering Facility: [facility] Address: [address] [place], [place] [address]Performed By: #### 32981-9 #### [facility] CLIA [id number] [address] [place] [address] LAB CLIA [id number] [address] [place] [address] [place] AMERICAEosinophils (Bld) [#/Vol] 0.00 10*3/uLNormal<0.46The [facility] on above:Order Comment: Specimen Type: BLOOD SPECIMEN Ordering Facility: [facility] Address: [address] [place], [place] [address]Performed By: #### 72772-4 #### [facility] CLIA [id number] [address] [place] [address] LAB CLIA [id number] [address] [place], [place] [address] [place] AMERICAEosinophils/100 WBC (Bld)0.0 %NormalThe [facility] of [facility] on above:Order Comment: Specimen Type: BLOOD SPECIMEN Ordering Facility: [facility] Address: [address] [place], [place] [address]Performed By: #### 58875-4 #### [facility] CLIA [id number] [address] [place] [address] LAB CLIA [id number] [address] [place] [address] [place] AMERICAErythrocyte distribution width (RBC) [Ratio]12.3 %Mpeoka89.5-15.0[facility] on above:Order Comment: Specimen Type: BLOOD SPECIMEN Ordering Facility: [facility] Address: [address] [place], [place] [address]Performed By: #### 63598-6 #### [facility] CLIA [id number] [address] [place] [address] LAB CLIA [id number] [address] [place] [address] [place] AMERICAHematocrit (Bld) [Volume fraction]39.3 %Nuyekp35.0-46.0[facility] on above:Order Comment: Specimen Type: BLOOD SPECIMEN Ordering Facility: [facility] Address: [address] [place], [place] [address]Performed By: #### 63578-0 #### [facility] CLIA [id number] [address] [place] [address] LAB CLIA [id number] [address] [place] [address] [place] AMERICAHemoglobin (Bld) [Mass/Vol] 13.4 g/dZNrqiel54.5-15.5CUniversity Hospitals [facility] on above:Order Comment: Specimen Type: BLOOD SPECIMEN Ordering Facility: [facility] Address: [address] [place], [place] [address]Performed By: #### 72069-2 #### [facility] CLIA [id number] [address] [place] [address] LAB CLIA [id number] [address] [place] [id number] [place] OF AMERICALymphocytes (Bld) [#/Vol] 10.95 10*3/uLHigh1.00-4.00The [facility] on above:Order Comment: Specimen Type: BLOOD SPECIMEN Ordering Facility: [facility] Address: [address] [place], [place] [address]Performed By: #### 30160-2 #### [facility] CLIA [id number] [address] [place] [address] LAB CLIA [id number] [address] [place], [place] [address] [place] AMERICALymphocytes/100 WBC (Bld) 71.5 %NormalThe [facility] of [facility] on above:Order Comment: Specimen Type: BLOOD SPECIMEN Ordering Facility: [facility] Address: [address] [place], [place] [address]Performed By: #### 26675-4 #### [facility] CLIA [id number] [address] [place] [address] LAB CLIA [id number] [address] [place] [address] STATES OF [facility] (RBC) [Entitic mass]32.1 ztMkuaxy22.0-34.0[facility] on above:Order Comment: Specimen Type: BLOOD SPECIMEN Ordering Facility: [facility] Address: [address] [place], [place] [address]Performed By: #### 81995-8 #### [facility] CLIA [id number] [address] [place] [address] LAB CLIA [id number] [address] [place] [address] [facility] (RBC) [Mass/Vol]34.1 g/vTWyodnh49.5-36.0[facility] on above:Order Comment: Specimen Type: BLOOD SPECIMEN Ordering Facility: [facility] Address: [address] [place], [place] [address]Performed By: #### 91214-3 #### [facility] CLIA [id number] [address] [place] [address] LAB CLIA [id number] [address] [place], [place] [address] [place] AMERICAMCV (RBC) [Entitic vol]94.2 jQBqhwhr37.0-100.0[facility] on above:Order Comment: Specimen Type: BLOOD SPECIMEN Ordering Facility: [facility] Address: [address] [place], [place] [address]Performed By: #### 07671-1 #### [facility] CLIA [id number] [address] [place] [address] LAB CLIA [id number] [address] [place] [address] [place] AMERICAMonocytes (Bld) [#/Vol]0.11 10*3/uLNormal<0.87[facility] on above:Order Comment: Specimen Type: BLOOD SPECIMEN Ordering Facility: [facility] Address: [address] [place], [place] [address]Performed By: #### 18037-9 #### [facility] CLIA [id number] [address] [place] [address] LAB CLIA [id number] [address] [place] [address] [place] AMERICAMonocytes/100 WBC (Bld)0.7 % NormalThe [facility] of [facility] on above:Order Comment: Specimen Type: BLOOD SPECIMEN Ordering Facility: [facility] Address: [address] [place], [place] [address]Performed By: #### 54611-5 #### [facility] CLIA [id number] [address] [place] [address] LAB CLIA [id number] [address] [address] [place] AMERICANeutrophils (Bld) [#/Vol] 4.15 10*3/uLNormal1.45-7.50[facility] on above:Order Comment: Specimen Type: BLOOD SPECIMEN Ordering Facility: [facility] Address: [address] [place], [place] [address]Performed By: #### 50399-3 #### [facility] CLIA [id number] [address] [place] [address] LAB CLIA [id number] [address] [place] [address] [place] AMERICANeutrophils/100 WBC (Bld) 27.1 %NormalThe [facility] on above:Order Comment: Specimen Type: BLOOD SPECIMEN Ordering Facility: [facility] Address: [address] [place], [place] [address]Performed By: #### 03273-0 #### [facility] CLIA [id number] [address] [place] [address] LAB CLIA [id number] [address] [place] [address] [place] AMERICANucleated RBC (Bld) [#/Vol] 10*3/uLNormal<0.01[facility] on above:Order Comment: Specimen Type: BLOOD SPECIMEN Ordering Facility: [facility] Address: [address] [place], [place] [address]Performed By: #### 24261-4 #### [facility] CLIA [id number] [address] [place] [address] LAB CLIA [id number] [address] [place] [address] [place] AMERICANucleated RBC/100 WBC (Bld) [Ratio]0.0 /100 WBCNormalCUniversity Hospitals [facility] on above:Order Comment: Specimen Type: BLOOD SPECIMEN Ordering Facility: [facility] Address: [address] [place], [place] [address]Performed By: #### 44520-2 #### [facility] CLIA [id number] [address] [place] [address] LAB CLIA [id number] [address] [place] [address] [place] AMERICAOvalocytes LM Ql (Bld)Few NormalThe [facility] of [facility] on above:Order Comment: Specimen Type: BLOOD SPECIMEN Ordering Facility: [facility] Address: [address] [place], [place] [address]Performed By: #### 39795-0 #### [facility] CLIA [id number] [address] [place] [address] LAB CLIA [id number] [address] [place] [address] [place] AMERICAPlatelet mean volume (Bld) [Entitic vol]10.0 fLNormal9.0-12.7CUniversity [facility]als [facility] on above: Order Comment: Specimen Type: BLOOD SPECIMEN Ordering Facility: [facility] Address: [address] [place], [place] [address]Performed By: #### 94437-0 #### [facility] CLIA [id number] [address] [place] [address] LAB CLIA [id number] [address] [place] [address] [place] AMERICAPlatelets (Bld) [#/Vol]200 10*3/wBXbvfxu559-543AvgkkbvyeThe [facility] on above:Order Comment: Specimen Type: BLOOD SPECIMEN Ordering Facility: [facility] Address: [address] [place], [place] [address]Performed By: #### 48492-3 #### [facility] CLIA [id number] [address] [place] [address] LAB CLIA [id number] [address] [place] [address] [place] AMERICAPlatelets Estimate (Bld) [#/Vol]AdequateNoHenry County Hospital on above:Order Comment: Specimen Type: BLOOD SPECIMEN Ordering Facility: [facility] Address: [address] [place], [place] [address]Performed By: #### 21864-4 #### [facility] CLIA [id number] [address] [place], [place] [address] [facility] CLIA [id number] [address] [place], [place] [address] [place] AMERICARBC (Bld) [#/Vol]4.17 10*6/uLNormal3.90-5.20[facility] on above:Order Comment: Specimen Type: BLOOD SPECIMEN Ordering Facility: [facility] Address: [address] [place], [place] [address]Performed By: #### 30780-9 #### [facility] CLIA [id number] [address] [place] [address] LAB CLIA [id number] [address] [place] [address] [place] AMERICARED CELL MORPHReviewed: see results of individual [facility] on above:Order Comment: Specimen Type: BLOOD SPECIMEN Ordering Facility: [facility] Address: [address] [place], [place] [address]Performed By: #### 19228-7 #### [facility] CLIA [id number] [address] [place] [address] LAB CLIA [id number] [address] [place], [place] [address] [place] AMERICAWBC (Bld) [#/Vol]15.31 10*3/uLHigh3.70-11.00[facility] on above:Order Comment: Specimen Type: BLOOD SPECIMEN Ordering Facility: [facility] Address: [address] [place], [place] [address]Performed By: #### 05216-6 #### [facility] CLIA [id number] [address] [place] [address] [facility] CLIA [id number] [address] [place] [address] [place] [address] [place] AMERICACNOVSPon 28-25-7547QHFBOV Visit (SP) Office ([place]) JOSE ALBERTO GODINEZ ([id number]) 1950 F Date Time Provider Department 03/16/25 10:20 AM SHANNA VICENTE During your visit today, we recorded the following information about you: Temperature Pulse Respiration Blood pressure 97.7 degrees 53/minute 16/minute 170/81 Weight 72.3 kg Shanna Vicente MD 03/16/2025 11:52 AM Signed PATIENT NAME: Jose Alberto Godinez CLINIC NO.: [id number] ATTENDING PHYSICIAN: Shanna Vicente MD DATE OF SERVICE: 03/16/25 Some of the elements of this note have been copied from my previous progress note dated 03/17/24 . All the information has been reviewed carefully. Diagnosis: MLUS Treatment History: HPI: Jose Alberto Godinez is a 72 year old year old female here for follow up. Doing well and no complaints Updated visit 03/17/24: Doing well No major complaints Last mammo in Jun 2023. No B symptoms. 03/16/25: - Doing well - No major complaints - No B symptoms. - Mammogram in November 2024 at [facility]. PAST MEDICAL HISTORY Diagnosis Date Abnormal CBC [...] % Final Platelet Cou (more content not included)...[facility] Comprehensive metabolic 2000 panelon 46-15-2262Ztvbeni [Mass/Vol]4.6 g/dLNormal 3.9-4.9CSt. John of God HospitalCommymichigan medical center on above:Order Comment: Specimen Type: BLOOD SPECIMEN Ordering Facility: [facility] Address: [address] [place], [place] [address]Performed By: #### 2532-0, 02811-6 #### [facility] CLIA [id number] [address], [place] [address]XVH [Catalytic activity/Vol]143 U/OMnon37-781VeudkwmbiThe [facility] on above:Order Comment: Specimen Type: BLOOD SPECIMEN Ordering Facility: [facility] Address: [address], [place] [address]Performed By: #### 2532-0, 63380-7 #### [facility] CLIA [id number] [address], [place] [address]PBE [Catalytic activity/Vol]18 U/LNormal7-38[facility] on above:Order Comment: Specimen Type: BLOOD SPECIMEN Ordering Facility: [facility] Address: [address], [place] [address]Performed By: #### 2532-0, 72397-0 #### [facility] CLIA [id number] [address] [place] [address]Fjdgh gap [Moles/Vol]11 mmol/LNormal8-15[facility] on above:Order Comment: Specimen Type: BLOOD SPECIMEN Ordering Facility: [facility] Address: [address] [place], [place] [address]Performed By: #### 2532-0, 32515-4 #### [facility] CLIA [id number] [address] [place] [address]BHC [Catalytic activity/Vol]25 U/GHjhdci56-98EowmozureThe [facility] of [facility] on above:Order Comment: Specimen Type: BLOOD SPECIMEN Ordering Facility: [facility] Address: [address], [place] [address]Performed By: #### 2532-0, 42256-0 #### [facility] CLIA [id number] [address] [place] [address]Onsquacso [Mass/Vol]0.4 mg/dLNormal0.2-1.3CUniversity [facility]als [facility] on above:Order Comment: Specimen Type: BLOOD SPECIMEN Ordering Facility: [facility] Address: [address] [place], [place] [address]Performed By: #### 2532-0, 29184-3 #### [facility] CLIA [id number] [address], [place] [address]Ftgirow [Mass/Vol]9.8 mg/dLNormal8.5-10.2CUniversity Hospitals [facility] on above:Order Comment: Specimen Type: BLOOD SPECIMEN Ordering Facility: [facility] Address: [address] [place], [place] [address]Performed By: #### 2532-0, 67383-8 #### [facility] CLIA [id number] [address], [place] [address]Kzqmejmq [Moles/Vol]104 mmol/DQudsce52-011CjvzodpiuThe [facility] of [facility] on above:Order Comment: Specimen Type: BLOOD SPECIMEN Ordering Facility: [facility] Address: [address] [place], [place] [address]Performed By: #### 2532-0, #### [facility] CLIA [id number] [address] [place] [address]XB9 [Moles/Vol]27 mmol/YCxqnww00-34JlovkkisvSalem Regional Medical Center Comment on above:Order Comment: Specimen Type: BLOOD SPECIMEN Ordering Facility: [facility] Address: [address] [place], [place] [address]Performed By: #### 2532-0, 92969-8 #### [facility] CLIA [id number] [address], [place] [address]Wkkbybzwzv [Mass/Vol]0.52 mg/dLLow0.58-0.96[facility] on above:Order Comment: Specimen Type: BLOOD SPECIMEN Ordering Facility: [facility] Address: [address] [place], [place] [address]Performed By: #### 2532-0, 48271-3 #### [facility] CLIA [id number] [address], [place] [address]rKPHze SerPlBld CKD-EPI 151327 mL/min/1.73m???Normal>=60 [facility] on above:Order Comment: Specimen Type: BLOOD SPECIMEN Ordering Facility: [facility] Address: [address] [place], [place] [address]Qwpbyk Comment: Estimated Glomerular Filtration Rate (eGFR) is calculated using the 2020 CKD-EPI cre atinine equation. This equation utilizes serum creatinine, sex, and age as parameters. The creatinine assay has traceable calibration to isotope dilution- mass spectrometry. Refer to KDIGO guidelines for clinical interpretation. In patients with unstable renal function, e.g. those with acute kidney injury, the eGFR may not accurately reflect actual GFR.Performed By: #### 2532-0, 68045-5 #### [facility] CLIA [id number] [address] [place] [address]Fejafbh [Mass/Vol]103 mg/yYVzfy39-65GaubtkiqjSalem Regional Medical Center Comment on above:Order Comment: Specimen Type: BLOOD SPECIMEN Ordering Facility: [facility] Address: [address] [place], [place] [address]Qkziyv Comment: The [place] [employer] (ADA) [...] [place] [employer]. Diabetes Care. 2016.39(Suppl 1).Performed By: #### 2532-0, 51434-1 #### [facility] CLIA [id number] [address] [place] [address]Ffpgqowmm [Moles/Vol]4.2 mmol/LNormal3.7-5.1CUniversity [facility]als [facility] on above:Order Comment: Specimen Type: BLOOD SPECIMEN Ordering Facility: [facility] Address: [address], [place] [address]Performed By: #### 2532-0, 22664-6 #### [facility] CLIA [id number] [address], [place] [address]Dspflsi [Mass/Vol]7.0 g/dLNormal6.3-8.0[facility] on above:Order Comment: Specimen Type: BLOOD SPECIMEN Ordering Facility: [facility] Address: [address] [place], [place] [address]Performed By: #### 2532-0, 72414-1 #### [facility] CLIA [id number] [address] [place] [address]Iozqse [Moles/Vol]142 mmol/SRhqlcy596-252TtlqubxnoThe [facility] of [facility] on above:Order Comment: Specimen Type: BLOOD SPECIMEN Ordering Facility: [facility] Address: [address] [place], [place] [address]Performed By: #### 2532-0, 39513-7 #### [facility] CLIA [id number] [address] [place] [address]Kzxe nitrogen [Mass/Vol]15 mg/dLNormal7-21[facility] on above:Order Comment: Specimen Type: BLOOD SPECIMEN Ordering Facility: [facility] Address: [address] [place], [place] [address]Performed By: #### 2532-0, 73673-3 #### [facility] CLIA [id number] [address] [place] [address]Upodrqkmtvd/100 WBC Auto (Bld)Ordered By: Shanna Corralepureddy on 41-41-0999Zpnrxpmyabo/100 WBC (Bld)0.0 %[facility] Erythrocyte distribution width Auto (RBC) [Ratio]Ordered By: Shanna Corralepureddy on 14-51-7920Hurdpmybbmv distribution width (RBC) [Ratio]12.3 %11.5-15.0 [facility] HospitalGlomerular filtration rate [Volume Rate/Area] in Serum, Plasma or Blood by CreatinineOrdered By: Jaqueline Charles on 03-16-2025 Glomerular filtration rate [Volume Rate/Area] in Serum, Plasma or Blood by Dtbxkaqvgu76 mL/min/1.73m???>=60Way[facility] HospitalCommymichigan medical center on above:Estimated Glomerular Filtration Rate (eGFR) is calculated using the 2020 CKD-EPI creatinine equation. This equation utilizes serum creatinine, sex, and age as parameters. The creatinine assay has traceable calibration to isotope dilution-mass spectrometry. Refer to KDIGO guidelines for clinical inte rpretation. In patients with unstable renal function, e.g. those with acute kidney injury, the eGFRmay not accurately reflect actual GFR.Glucose [Mass/volume] in Serum or PlasmaOrdered By: Jaqueline Charles on 35-82-8320Soooysd [Mass/Vol]103 mg/pPDdpn63-54TznksoezdWayne HospitalCommymichigan medical center on above: The [place] Diabetes Association (ADA) provides [...] diabetes.Reference: [employer] in Diabetes 2016, [place] [employer]. Diabetes Care. 2016.39(Suppl 1).Hematocrit Auto (Bld) [Volume fraction]Ordered By: Shanna Vicente on 78-95-9789Zxovrxhccl (Bld) [Volume fraction]39.3 %36.0-46.0 [facility] HospitalHemoglobin [Mass/volume] in BloodOrdered By: Shanna Vicente on 57-33-2339Bksycalpuh (Bld) [Mass/Vol]13.4 g/dL11.5-15.5 [facility] HospitalLDH SerPl-cCncon 76-02-5444VSG [Catalytic activity/Vol]249 U/AGmok594-177Rugeewmcw Clinic ClevelandComment on above:Order Comment: Specimen Type: BLOOD SPECIMEN Ordering Facility: [facility] Address: [address] [id number] By: #### 2532-0, 51845-0 #### [facility] CLIA [id number] [address] [place] [address]Gjwkzitqah - Chemistry and Chemistry - challengeOrdered By: Jaqueline Charles on 23-66-7115Gcymrtd [Mass/Vol]4.6 g/dL3.9-4.9[facility] HospitalALP [Catalytic activity/Vol]143 U/HOxxl40-028UruvmgopkWayne HospitalALT [Catalytic activity/Vol]18 U/L7-38[facility] HospitalAST [Catalytic activity/Vol]25 U/Q94-66XpuzvmwvcWay[facility] Hospital Bilirubin [Mass/Vol]0.4 mg/dL0.2-1.3FUniversity Hospitals St. John Medical CenterCalcium [Mass/Vol]9.8 mg/dL8.5-10.2FUniversity Hospitals St. John Medical CenterChloride [Moles/Vol] 104 mmol/U07-017CuumubaigWayne HospitalCO2 [Moles/Vol]27 mmol/L22-30 [facility] HospitalCreatinine [Mass/Vol]0.52 mg/dLLow0.58-0.96 [facility] HospitalPotassium [Moles/Vol]4.2 mmol/L3.7-5.1FSalem Regional Medical Centerodium [Moles/Vol]142 mmol/H127-560CcntwgapnWayne HospitalUrea nitrogen [Mass/Vol]15 mg/dL7-21[facility] HospitalLaboratory - Chemistry and Chemistry - challengeOrdered By: Shanna Vicente on 36-95-3207EDT [Catalytic activity/Vol]249 U/SCggt226-964 [facility] HospitalLaboratory - Hematology and Cell countsOrdered By: Shanna Vicente on 90-80-9996Seajtoaxmke (Bld) [#/Vol]0.00 10*3/uL<0.46 [facility] HospitalLeukocytes [#/volume] corrected for nucleated erythrocytes in Blood by Automated counOrdered By: Shanna Vicente on 10-64-6512NWJ corrected for nucl RBC Auto (Bld) [#/Vol]15.31 k/uLHigh3.70-11.00 [facility] HospitalLymphocytes Auto (Bld) [#/Vol]Ordered By: Shanna Vicente on 90-89-0458Snbtscnmuev (Bld) [#/Vol]10.95 10*3/uLHigh 1.00-4.00Way[facility] HospitalLymphocytes/100 WBC Auto (Bld)Ordered By: Shanna Vicente on 19-55-8702Slhnzrfzubb/100 WBC (Bld)71.5 %[facility] HospitalMCH Auto (RBC) [Entitic mass]Ordered By: Shanna Vicente on 21-62-1187PIY (RBC) [Entitic mass]32.1 pg26.0-34.0[facility] HospitalMCHC Auto (RBC) [Mass/Vol]Ordered By: Shanna Vicente on 89-17-0920QKRN (RBC) [Mass/Vol]34.1 g/dL30.5-36.0[facility] HospitalMCV Auto (RBC) [Entitic vol]Ordered By: Shanna Vicente on 03-16-2025 MCV (RBC) [Entitic vol]94.2 fL80.0-100.0[facility] Monocytes Auto (Bld) [#/Vol]Ordered By: Shanna Vicente on 03-16-2025 Monocytes (Bld) [#/Vol]0.11 10*3/uL<0.87[facility] Monocytes/100 WBC Auto (Bld)Ordered By: Shanna Vicente on 03-16-2025 Monocytes/100 WBC (Bld)0.7 %[facility] HospitalNeutrophils Auto (Bld) [#/Vol]Ordered By: Shanna Vicente on 03-00-4441Nlisofumczo (Bld) [#/Vol]4.15 10*3/uL1.45-7.50Wayne HospitalNeutrophils/100 WBC Auto (Bld)Ordered By: Shanna Vicente on 27-70-4413Eplwcvnwvhw/100 WBC (Bld)27.1 %[facility] HospitalNo Panel InformationOrdered By: Shanna Vicente on 11-15-5136Fmiyno RBC MorphologyReviewed: see results of individual morphologiesWayne HospitalNucleated RBC Auto (Bld) [#/Vol]Ordered By: Shanna Vicente on 47-48-3200Hpgeeqcsp RBC (Bld) [#/Vol] 10*3/uL<0.01Wayne HospitalNucleated erythrocytes [Presence] in Blood by Automated countOrdered By: Shanna Vicente on 03-16-2025 Nucleated RBC Auto Ql (Bld)0.0 /100{WBC}[facility] Ovalocyte detectionOrdered By: Shanna Vicente on 63-43-8163Pfkvreudeb LM Ql (Bld)FewWayne HospitalPlatelet adequacy [Presence] in Blood by Light microscopyOrdered By: Shanna Vicente on 43-95-8065Rrwcotqwg LM Ql (Bld)AdequateWayne HospitalPlatelet mean volume Auto (Bld) [Entitic vol]Ordered By: Shanna Vicente on 63-37-0054Bilsjogn mean volume (Bld) [Entitic vol]10.0 fL9.0-12.7FUniversity Hospitals St. John Medical CenterPlatelets Auto (Bld) [#/Vol]Ordered By: Shanna Vicente on 88-94-6981Xpqefvawc (Bld) [#/Vol]200 10*3/fX029-604OgmnuugviWayne HospitalProtein [Mass/volume] in Serum or PlasmaOrdered By: Jaqueline Charles on 80-13-2113Vclcgni [Mass/Vol]7.0 g/dL6.3-8.0Way[facility] HospitalRBC Auto (Bld) [#/Vol]Ordered By: Shanna Vicente on 49-48-6637PTP (Bld) [#/Vol]4.17 10*6/uL3.90-5.20Fire[facility] Medical CenterSerum or plasma anion gap determinationOrdered By: Jaqueline Charles on 15-56-5814Xkuyi gap [Moles/Vol]11 mmol/L8-15Wayne HospitalXR Hip - left 3 Viewson 87-75-2927Wcyonxc Result: Xrays taken in the office today saved to the permanent record, AP and lateral weightbearing films, show stable position and alignment of the FORTINO prosthesis. No sign of loosening, fracture or infection.[facility]ow[facility] HospitalRadiology Study observation (narrative)[facility] WO CONon 75-34-9627NNL LSPINE WO CONEXAMINATION: MRI [facility] WO CON HISTORY: Degeneration of lumbar intervertebral [...] Electronically authenticated by: YEHUDA REYES Date: 2022-08-14 16:57NoJoint Township District Memorial HospitalXR CSPINE 2_3 VIEWSon 55-91-8605YA CSPINE 2_3 VIEWSEXAMINATION: XR CSPINE 2_3 VIEWS HISTORY: Neck pain [...] Electronically authenticated by: PACO KANG Date: 2022-08-08 09:35NoJoint Township District Memorial HospitalXR LSPINE 2_3 VIEWSon 75-04-5049QK LSPINE 2_3 VIEWSEXAMINATION: XR LSPINE 2_3 VIEWS HISTORY: Left side [...] Electronically authenticated by: PACO KANG Date: 2022-08-08 09:31K[facility]tering HealthCB W MANUAL DIFFon 55-32-7320VEFHCTUY LYMPH #1.09 103/ulNormal The [facility] HospitalComment on above:Performed By: #### JEFERSON #### [facility] [address] [place] [address] Dr. Brennen BeauchampYPICAL LYMPH %11 %NormalThe [facility] Memorial HospitalComment on above: Performed By: #### JEFERSON #### [facility] [address] [address] [address] Brennen Clark #Normal0.0-0.3The [facility] HospitalComment on above: Performed By: #### JEFERSON #### [facility] [address] [place] [address] Dr. Brennen Clark %Normal0-5The [facility] HospitalComment on above:Performed By: #### JEFERSON #### [facility] [address] [address] [address] Brennen Wolf #0.00 103/ulNormal0.00-0.10The [facility] HospitalComment on above:Performed By: #### JEFERSON #### [facility] [address] [place] [address] Dr. Brennen Wolf %0.0 %Critically low0.2-2.0The [facility] HospitalComment on above:Performed By: #### JEFERSON #### [facility] [address] [place] [address] Dr. Brennen Alvarez #NormalThe [facility] HospitalComment on above:Performed By: #### JEFERSON #### [facility] [address] [place] [address] Dr. Brennen Alvarez %NormalThe [facility] HospitalComment on above:Performed By: #### JEFERSON #### [facility] [address] [place] [address] Dr. Brennen BartonCORRECTED WBCNormal4.0-11.0The [facility] HospitalComment on above: Performed By: #### JEFERSON #### [facility] [address] [place] [address] Dr. Brennen Adames #0.20 103/ulNormal0.00-0.70The [facility] HospitalComment on above:Performed By: #### JEFERSON #### [facility] [address] [place] [address] Dr. Brennen Adames%2.0 %Normal0.9-7.0The [facility] HospitalComment on above: Performed By: #### JEFERSON #### [facility] [address] [address] [address] Brennen ChuT37.9 %Zofgis09.0-48.0The [facility] HospitalComment on above: Performed By: #### CBCGAVI #### [facility] [address] [address] [address] Brennen BartonHGB12.8 g/heCfnrzt61.0-16.0The [facility] HospitalComment on above: Performed By: #### CBCGAVI #### [facility] [address] [address] [address] Brennen Zamarripa #4.06 103/ulCritically high1.20-3.80The [facility] Comment on above:Performed By: #### JEFERSON #### [facility] [address] [place] [address] Dr. Brennen Zamarripa%41.0 %Harzkj62.5-60.0The [facility] HospitalComment on above:Performed By: #### JEFERSON #### [facility] [address] [place] [address] Dr. Brennen PiersonH31.4 ghSlzvoc03.7-34.0The [facility] HospitalComment on above: Performed By: #### JEFERSON #### [facility] [address] [place] [address] Dr. Brennen PiersonHC33.8 g/awKmzgek63.9-35.2The [facility] HospitalComment on above:Performed By: #### CBCGAVI #### [facility] [address] [place] [address] Dr. Brennen PiersonV92.9 eFGoyksx96.0-99.0The [facility] HospitalComment on above: Performed By: #### CBCGAVI #### [facility] [address] [place] [address] Dr. Brennen SwannOCYTE #NormalThe [facility] HospitalComment on above: Performed By: #### JEFERSON #### [facility] [address] [place] [address] Dr. Brennen SwannOCYTE %NormalGreen Cross HospitalComment on above: Performed By: #### CBCMAN #### [facility] [address] [address] [address] Brennen Joshi#0.69 103/ulNormal0.30-0.80The [facility] HospitalComment on above:Performed By: #### CBCMAN #### [facility] [address] [address] [address] Brennen Joshi%7.0 %Normal1.7-12.0The [facility] HospitalComment on above: Performed By: #### CBCMAN #### [facility] [address] [place] [address] Dr. Brennen BartonMPV10.3 fLNormal9.5-13.5The [facility] on above: Performed By: #### CBCGAVI #### [facility] [address] [place] [address] Dr. Brennen LoweOCYTE #NormalThe [facility] HospitalComment on above:Performed By: #### CBCGAVI #### [facility] [address] [place] [address] Dr. Brennen LwoeOCYTE %NormalGreen Cross HospitalCommymichigan medical center on above:Performed By: #### CBCMAN #### [facility] [address] [place] [address] Dr. Brennen BartonNRBCNormalThe [facility] HospitalCommymichigan medical center on above:Performed By: #### CBCMAN #### [facility] [address] [place] [address] Dr. Brennen BartonPLT205 103/bzCqbywz994-098Mbc [facility] HospitalComment on above: Performed By: #### CBCMAN #### [facility] [address] [place] [address] Dr. Brennen BartonRBC4.08 106/ulCritically low4.20-5.40The [facility] on above:Performed By: #### CBCMAN #### [facility] [address] [place] [address] Dr. Brennen BartonRDW12.1 %Bygqoo71.0-15.0[facility] on above: Performed By: #### CBCMAN #### [facility] [address] [place] [address] Dr. Brennen Taylor #3.86 103/ulNormal1.40-6.50The [facility] on above:Performed By: #### CBCMAN #### [facility] [address] [place] [address] Dr. Brennen Taylor %39.0 %Critically low43.0-75.0[facility] on above:Performed By: #### CBCMAN #### [facility] [address] [place] [address] Dr. Brennen Greco CELLSSEENNormalThe [facility] HospitalCommymichigan medical center on above: Performed By: #### CBCMAN #### [facility] [address] [place] [address] Dr. Brennen HoangBC9.9 103/ulNormal4.0-11.0The [facility] on above: Performed By: #### CBCMAN #### [facility] [address] [place] [address] Dr. Brennen Juares PROFILEon 06-57-9978XPLH-HDL RATIO [facility] HospitalCommymichigan medical center on above:Result Comment: 3.3 - 4.4 LOW RISK 4.4 - 7.1 AVERAGE RISK 7.1 - 11.0 MODERATE RISK >11.0 HIGH RISKPerformed By: #### LIPID, CMP #### [facility] [address] [place] [address] Dr. Brennen BartonCholesterol [Mass/Vol]239 mg/dLCritically high<=200The [facility] on above:Performed By: #### LIPID, CMP #### [facility] [address] [place] [address] Dr. Brennen Clearyesterol in HDL [Mass/Vol]66 mg/dLCritically ofsg08-05Zuh [facility] on above:Performed By: #### LIPID, CMP #### [facility] [address] [place] [address] Dr. Brennen BartonCholesterol in LDL [Mass/Vol]151.0 mg/dLKettering HealthComment on above:Performed By: #### LIPID, CMP #### [facility] [address] [place] [address] Dr. Brennen Clearyesterrosanna.total/Cholesterol in HDL [Mass ratio]3.6 {ratio} NormalThe [facility] HospitalComment on above:Performed By: #### LIPID, CMP #### [facility] [address] [place] [address] Dr. Brennen Gupta NORMAL> or = 60 mg/dl - LOW CARDIOVASCULAR RISK <40 mg/dl - HIGH CARDIOVASCULAR RISKKettering HealthComment on above:Performed By: #### LIPID, CMP #### [facility] [address] [place] [address] Dr. Brennen Dupont CALC NORMALSEE BELOWNoJoint Township District Memorial HospitalComment on above:Result Comment: <100 mg/dl OPTIMAL 100 - 129 mg/dl NEAR OR ABOVE OPTIMAL 130 - 159 mg/dl BORDERLINE HIGH 160 - 189 mg/dl HIGH >190 mg/dl VERY HIGH Performed By: #### LIPID, CMP #### [facility] [address] [place] [address] Dr. Brennen BartonTriglyceride [Mass/Vol]110 mg/dLNormal<=150The [facility] Comment on above:Performed By: #### LIPID, CMP #### [facility] [address] [place] [address] Dr. Brennen BartonVLDL CALC22.0 mg/dLNoJoint Township District Memorial HospitalComment on above: Performed By: #### LIPID, CMP #### [facility] [address] [place] [address] Dr. Brennen Osman 14(COMP METB)on 20-85-7671Tuufulu [Mass/Vol]4.0 g/dLNormal 3.4-5.0Green Cross HospitalComment on above:Performed By: #### LIPID, CMP #### [facility] [address] [address] [address] Brennen BartonAlbumin/Globulin [Mass ratio]1.2 {ratio}NormalThe [facility] HospitalComment on above:Performed By: #### LIPID, CMP #### [facility] [address] [address] [address] Brennen LermaP [Catalytic activity/Vol]141 U/LCritically hhoa51-649Vqm [facility] HospitalComment on above:Performed By: #### LIPID, CMP #### [facility] [address] [address] [address] Brennen LermaT [Catalytic activity/Vol]19 U/HAwlopu57-79Vot [facility] HospitalComment on above:Performed By: #### LIPID, CMP #### [facility] [address] [place] [address] Dr. Brennen Mackon gap [Moles/Vol]7.9 mmol/LNormalThe [facility] HospitalComment on above:Performed By: #### LIPID, CMP #### [facility] [address] [address] [address] Brennen BarotnAST [Catalytic activity/Vol]26 U/WFexmxf87-89Wcw [facility] HospitalComment on above:Performed By: #### LIPID, CMP #### [facility] [address] [place] [address] Dr. Brennen BartonBilirubin [Mass/Vol]0.5 mg/dLNormal0.2-1.0The [facility] Comment on above:Performed By: #### LIPID, CMP #### [facility] [address] [place] [address] Dr. Brennen BartonCalcium [Mass/Vol]9.8 mg/dLNormal8.5-10.1The [facility] Comment on above:Performed By: #### LIPID, CMP #### [facility] [facility] [address] [place] [address] Dr. Brennen BartonChloride [Moles/Vol]103 mmol/DChbnol68-248Fvw [facility] Comment on above:Performed By: #### LIPID, CMP #### [facility] [address] [address] [address] Brennen BartonCO2 [Moles/Vol]33.1 mmol/LCritically high21.0-32.0The [facility] HospitalComment on above:Performed By: #### LIPID, CMP #### [facility] [address] [address] [address] Brennen BartonCreatinine [Mass/Vol]0.57 mg/dLNormal0.55-1.02The [facility] HospitalComment on above:Performed By: #### LIPID, CMP #### [facility] [address] [address] [address] Brennen BaconGFR-AF P[place]CA[place] ISLANDER>60Normal>=60The [facility] HospitalComment on above:Performed By: #### LIPID, CMP #### [facility] [address] [place] [address] Dr. Brennen BaconGFR-NON AF [place]ER>60Normal>=60The [facility] HospitalComment on above:Performed By: #### LIPID, CMP #### [facility] [address] [place] [address] Dr. Brennen BartonGlobulin (S) [Mass/Vol]3.4 g/dLNormalThe [facility] HospitalComment on above:Performed By: #### LIPID, CMP #### [facility] [address] [place] [address] Dr. Brennen BartonGlucose [Mass/Vol]97 mg/oXCacyzz77-365Cig [facility] Comment on above:Performed By: #### LIPID, CMP #### [facility] [address] [place] [address] Dr. Brennen BartonPotassium [Moles/Vol]4.0 mmol/LNormal3.5-5.1The [facility] Comment on above:Performed By: #### LIPID, CMP #### [facility] [address] [place] [address] Dr. Brennen BartonProtein [Mass/Vol]7.4 g/dLNormal6.4-8.2The [facility] Comment on above:Performed By: #### LIPID, CMP #### [facility] [address] [place], [place] [address] Dr. Brennen BartonSodium [Moles/Vol]140 mmol/XMfwlxh681-817Dyu [facility] Comment on above:Performed By: #### LIPID, CMP #### [facility] [address] [place], [place] [address] Dr. Brennen Isaac nitrogen [Mass/Vol]11.0 mg/dLNormal7.0-18.0The [facility] HospitalComment on above:Performed By: #### LIPID, CMP #### [facility] [address] [place], [place] [address] Dr. Brennen Isaac nitrogen/Creatinine [Mass ratio]19.3 mg/mgNormalThe [facility] HospitalComment on above:Performed By: #### LIPID, CMP #### [facility] [address] [place], [place] [address] Dr. Brennen BartonCT Sinus w/o Contrast*on 48-05-8533RU Sinus w/o Contrast*HISTORY: Nasal congestion COMPARISON: None available TECHNIQUE: Multiple [...] and signed by Vito Sanchez on 09/05/2021 1224NormalNorthern [facility] Vital Signs Date TimeVital SignValuePerforming RshhwmzjiSgveaons12-16-4178 08:38-0400 Diastolic blood qqpezfvg70 mm[Hg]Jaqueline Charles MD Work Phone: [phone]10-21-2025 08:38-0400 Heart rate76 /minJaqueline Charles MD Work Phone: [phone]10-21-2025 08:38-0400 Systolic blood aueyselx278 mm[Hg]Jaqueline Charles MD Work Phone: [phone]10-21-2025 08:27-0400 Body emjonm133.64 cmJaqueline Charles MD Work Phone: [phone]10-21-2025 08:27-0400 Body mass index (BMI) [Ratio]25.4 kg/r3HwkvwfJaqueline Charles MD Work Phone: [phone]10-21-2025 08:27-0400 Body .66 kgJaqueline Charles MD Work Phone: [phone]01-14-2025 08:20-0500 Body ycofxo364.6 cmMichaerenetta Alexander DO Work Phone: [phone]01-14-2025 08:20-0500Body mass index (BMI) [Ratio]26.63 kg/l0Vcfngmy Alexander DO Work Phone: [phone] [place], [place] [address]01-14-2025 08:20-0500Body .84 kgLew Alexander DO Work Phone: [phone] [place], [place] 8756609-26-2024 10:04-0400Body mass index (BMI) [Ratio]27.29 kg/b3UpreqpShanna Vicente MD Work Phone: cProv[facility] HospitalUbbvkm13-96-0361 10:04-0400Body temperature 97.81 [degF]Shanna Vicente MD Work Phone: cProvidence HospitalVczxjm06-20-9793 10:04-0400Body cwsexn94.4 kgShanna Vicente MD Work Phone: cProvidence HospitalUmzfnd16-46-6853 10:04-0400Diastolic blood uzkivzyp36 mm[Hg]Shanna Vicente MD Work Phone: cProv[facility] HospitalJuslfb13-42-3995 10:04-0400Heart rate74 /min Shanna Vicente MD Work Phone: cProv[facility] HospitalWiwqqx78-96-8835 10:04-0400Respiratory rate 16 /minAdaeve Vicente MD Work Phone: cProvidence HospitalJwhnbm39-38-8387 10:04-2829UcK6% (BldA) [Mass fraction]97 %Shanna Vicente MD Work Phone: cProvidence HospitalMwqjpd45-29-2859 10:04-0400Systolic blood qnvhfaop978 mm[Hg]Shanna Vicente MD Work Phone: cProvidence HospitalQhjbqj49-79-5110 15:17-0400Body .1 cmMelvin Guzman MD Work Phone: [facility]09-15-2023 15:17-0400Body temperature 97.39 [degF]Melvin Guzman MD Work Phone: [facility]09-15-2023 15:17-0400Body .48 kgMelvin Guzman MD Work Phone: [facility]09-15-2023 15:17-0400Diastolic blood hivhbkxm06 mm[Hg]Melvin Guzman MD Work Phone: [address] [place] [address]-15-2023 15:17-0400Heart rate63 /min Melvin Guzman MD Work Phone: [address] [address]-15-2023 15:17-0400Respiratory rate 18 /minMelvin Guzman MD Work Phone: [address] [address]-15-2023 15:17-3072AsA6% (BldA) [Mass fraction]98 %Melvin Guzman MD Work Phone: [facility]09-15-2023 15:17-0400Systolic blood sjqafwfb967 mm[Hg]Melvin Guzman MD Work Phone: [facility]03-07-2023 14:54-0500Diastolic blood ffkzowxw41 mm[Hg]Nilda Art PA-C Work Phone: [facility]03-07-2023 14:54-0500Systolic blood hmyilsbp694 mm[Hg]Nilda Atr PA-C Work Phone: [facility]03-07-2023 14:51-0500Body .1 cmMindy Art PA-C Work Phone: [facility]03-07-2023 14:51-0500Body temperature 97.39 [degF]Nilda Art PA-C Work Phone: [facility]03-07-2023 14:51-0500Body etmjst39.48 kgMindy Art PA-C Work Phone: [facility]03-07-2023 14:51-0500Heart rate73 /min Nilda Art PA-C Work Phone: [facility]03-07-2023 14:51-0500Respiratory rate 16 /minMindy Art PA-C Work Phone: [facility]03-07-2023 14:51-7972MyA7% (BldA) [Mass fraction]97 %Nilda Art PA-C Work Phone: [facility]02-16-2023 14:45-0500Body .37 cmJaqueline Charles Other [employer] Other 02-16-2023 14:45-0500Body mass index (BMI) [Ratio] 26.22 kg/m8HvxhtaJaqueline Charles Other [place] [employer] Other 02-16-2023 14:45-0500Body qssqic84.58 kgTerrishahida Charles Other [facility] [employer] Other 02-16-2023 14:45-0500Diastolic blood ceibfoaq58 mm[Hg] Jaqueline Melvin Other [employer] Other 02-16-2023 14:45-9412CtB5% (BldA) [Mass fraction]97 % Jaqueline Melvin Other [employer] Other 02-16-2023 14:45-0500Systolic blood dbywckfx877 mm[Hg] Jaqueline Charles Other [employer] Other 01-03-2023 11:32-0500Body .1 cmMelvin Guzman MD Work Phone: [facility]01-03-2023 11:32-0500Body temperature 97.3 [degF]Melvin Guzman MD Work Phone: [facility]01-03-2023 11:32-0500Body .67 kgMelvin Guzman MD Work Phone: [facility]01-03-2023 11:32-0500Diastolic blood nnvasuqi69 mm[Hg]Melvin Guzman MD Work Phone: [facility]01-03-2023 11:32-0500Heart rate79 /min Melvin Guzman MD Work Phone: [facility]01-03-2023 11:32-0500Respiratory rate 16 /minMelvin Guzman MD Work Phone: [facility]01-03-2023 11:32-2472XgE2% (BldA) [Mass fraction]98 %Melvin Guzman MD Work Phone: [facility]01-03-2023 11:32-0500Systolic blood httyelpf907 mm[Hg]Melvin Guzman MD Work Phone: [facility] Encounters Encounter DateEncounter TypeCare ProviderFacilityStart: 04-11-2025 End: 51-31-8687qqpkfgzkqgGpvtek E Braun MD Work Phone: [facility] 04-[facility]-2025 End: 43-41-5530Hnytron encounter procedureJaqueline Charles MD-[facility] Work Phone: Start: 54-91-7447Egx-patient / Non-visitCatherchan Guo CMA-[facility] Work Phone: Start: 55-32-7241Phn-patient / Non-visitMarcelo Winters DO-[facility] Work Phone: Start: 90-48-3136Yws-patient / Non-visitAdarsector Vicente MD-[facility] Work Phone: Start: 03-16-2025 End: 08-51-3305slthbtjmsxHKMHJF VENNEPUREDDYFacility:[facility] Start: 09-20-2024 End: 55-97-7272albgohfhwhAzyqpkygnwp BROWNFacility:FM WillardStart: 07-05-2024 End: 54-57-5226Gnvjeur encounter procedureMicmandy Alexander DO Work Phone: noMS NB ORTHOComment on above:History of total left hip replacement (Primary Dx)Start: 07-05-2024 End: 97-00-1218cfmctrpwbxJSTDRTZ T POWERSNot AvailableStart: 03-17-2024 End: 95-89-4873Meadgi outpatient visit 15 minutesAdaeve Vicente MD Work Phone: Hematology/OncologyComment on above:Lymphocytosis (Primary Dx)Start: 03-14-2024 End: 23-68-1265Zrghufnxu encounterBrianna Ratliff RN Work Phone: Hematology/OncologyComment on above:Transition Of Care Start: 22-35-2396Wegcyrv encounter Reg Charles MD Work Phone: [facility] 03-06-2023 End: 40-58-8611zwonxfobooOqmyoKe Guzman MD Work Phone: Hematology/OncologyComment on above:Lymphocytosis (Primary Dx)Start: 03-06-2023 End: 19-55-5526Grwfvng encounter procedureMelvin Guzman MD Work Phone: SANDUSKYStart: 11-19-2022 End: 37-11-9374eeesxmqktzAivait Braun Other [email or web address] Other Start: 18-52-3864Csvvwdvmv encounterJaqueline DietrichNovant Health Brunswick Medical Centertart: 08-26-2022 End: 55-98-0175ugebqlnwwnBeqft M Musser PA-C Work Phone: Hematology/OncologyComment on above:Lymphocytosis (Primary Dx)Start: 08-26-2022 End: 23-92-9771Dlqsmuc encounter Gal Cordova PA-C Work Phone: SANDUSKYStart: 44-01-3258Qbkkxhyxt encounterMarcirosales CharlesNewark Hospitaltart: 08-14-2022 End: 26-03-2391wxvpylvyhvEA JAQUELINE CHARLESFacility:K6Jmveo: 08-11-2022 End: 27-73-2107ndscsjoxshLbcrps Braun Other [email or web address] Other Start: 11-94-7222Pmzmiqeir encounterMarcia Ivette [facility] ClinicStart: 08-08-2022 End: 84-49-4430kpdegngnysSsrdvo Braun Other [employer] Other Start: 22-26-6987Hifuriocg encounterMarshahida Steele [facility]: 08-07-2022 End: 86-65-2658ztudauocqpIOBridget CHARLESFacility:A2Tdnsj: 14-89-1957Mrtdkm outpatient visit 15 minutesJaqueline Steele [facility]ertart: 06-24-2022 End: 45-72-2580jlbaweajucWhwewKe Guzman MD Work Phone: Hematology/OncologyComment on above:Lymphocytosis (Primary Dx)Start: 06-24-2022 End: 76-58-8375Vdyqchr encounter procedureMelvin Guzman MD Work Phone: SANDUSKYStart: 88-62-2234Jwtft abstractingMelvin Guzman MD Work Phone: Hematology/OncologyStart: 05-27-2022 End: 38-75-2673qinkplhjalHTBridget CHARLESFacility:H1 Procedures DateProcedureProcedure DetailPerforming ClinicianStart: 75-54-6071Zsejl hip unilateral with pelvis 2-3 viewsMichael T Alexander DO Work Phone: Plan of Treatment DateCare ActivityDetailAuthorStart: 88-95-7232Gjubhzoo ScreeningDiabetes ScreeningFisher-Titus Medical Centertart: 72-69-7977Orukfpxv ScreeningDiabetes Screening [facility] Centertart: 26-59-3903ZNYKLEUW SCREENDIABETES SCREENDunlap Memorial Hospital Start: 03-16-2025 End: 61-20-2442Efkrys-up wbimefnte49/25/2025 10:30 AM EDT Visit (SP) Office Hematology/Oncology [address] [place] [address] [place] [address] Shanna Vicente MD [address] [place] [address] 1 year follow up with labHematology/OncologyComment on above:1 year follow up with labStart: 03-16-2025 End: 68-02-4795Qxzqrgr encounter qeejwmwki69/25/2025 10:15 AM EDT Office Visit [facility] [address] [place] [address] 1 [facility] with [facility] LaboratoryComment on above:1 year follow up with labStart: 72-71-1850GUJ Vaccine (1 - 1-dose 75+ series)RSV Vaccine (1 - 1-dose 75+ series)[facility] Start: 03-17-2024 End: 71-18-9883HVV W Auto Differential panel - BloodCOMPLETE BLOOD COUNT AND DIFFERENTIAL Lab Routine Lymphocytosis Expected: 03/17/2024, Expires: 06/16/2024 [facility] Work Phone: comment on above:Expected: 03/17/2024, Expires: 06/16/2024Start: 03-17-2024 End: 36-06-2355Tmbufnoxuqcub metabolic 2000 panel - Serum or PlasmaCOMPREHENSIVE METABOLIC PANEL Lab Routine Lymphocytosis Expected: 03/17/2024, Expires: 06/16/2024leveland ClinicComment on above:Expected: 03/17/2024, Expires: 06/16/2024Start: 03-17-2024 End: 24-37-4618curydfpdbn90/26/2024 10:00 AM EDT Visit (SP) Office Hematology/Oncology [address] [place] [address] Shanna Vicente MD [address] [place] [address] JORDYN kasHematology/OncologyComment on above:JORDYN mark Start: 03-17-2024 End: 53-72-5466Nltkzgs encounter udqnzdbhb31/26/2024 9:45 AM EDT Office Visit [facility] [address] [place] [address] [facility] LaboratoryComment on above:LabStart: 03-06-2024 End: 49-75-6396WKH W Auto Differential panel - BloodCBC + DIFF Lab Routine Lymphocytosis Expected: 03/06/2024 (Approximate), Expires: 05/06/2024[facility] Work Phone: Comment on above:Expected: 03/06/2024 (Approximate), Expires: 05/06/2024Start: 03-06-2024 End: 67-01-9454Smnycjenvikap metabolic 2000 panel - Serum or PlasmaCOMP METABOLIC PANEL Lab Routine Lymphocytosis Expected: 03/06/2024 (Approximate), Expires: 05/06/2024[facility] Work Phone: Comment on above:Expected: 03/06/2024 (Approximate), Expires: 05/06/2024Start: 95-47-3793Ewsqt-19 Vaccine ()Covid- 19 Vaccine ()[facility]ertart: 84-58-9674Quxsscpcl vaccinationInfluenza Vaccine (#1)[facility]: 63-96-1630Qdwgpkp Directive DiscussionAdvance Directive DiscussionFisher-Titus Medical Centertart: 02-26-2023 End: 45-91-6555XVO W Auto Differential panel - BloodCBC + DIFF Lab Routine Lymphocytosis Expected: 02/26/2023 (Approximate), Expires: 04/28/2023[facility] Work Phone: Comment on above:Expected: 02/26/2023 (Approximate), Expires: 04/28/2023Start: 02-26-2023 End: 46-86-4749Rdvepistnshhq metabolic 2000 panel - Serum or PlasmaCOMP METABOLIC PANEL Lab Routine Lymphocytosis Expected: 02/26/2023 (Approximate), Expires: 04/28/2023[facility] Work Phone: Comment on above:Expected: 02/26/2023 (Approximate), Expires: 04/28/2023Start: 17-19-0250Khjkfcspc vaccinationInfluenza Vaccine (#1) [facility]: 08-22-2022 End: 29-90-8554AUT W Auto Differential panel - BloodCBC + DIFF Lab Routine Lymphocytosis Expected: 08/22/2022 (Approximate), Expires: 10/22/2022[facility] Work Phone: Comment on above:Expected: 08/22/2022 (Approximate), Expires: 10/22/2022Start: 08-22-2022 End: 50-26-3535Gjjtcleeghkbg metabolic 2000 panel - Serum or PlasmaCOMP METABOLIC PANEL Lab Routine Lymphocytosis Expected: 08/22/2022 (Approximate), Expires: 10/22/2022[facility] Work Phone: Comment on above:Expected: 08/22/2022 (Approximate), Expires: 10/22/2022Start: 08-22-2022 End: 65-19-2043KCNQ CYTOMETRY PERIPHERAL BLOOD LEUK/LYMPH (FCLEUK)FLOW CYTOMETRY PERIPHERAL BLOOD LEUK/LYMPH (FCLEUK) Lab Routine Lymphocytosis Expected: 08/22/2022 (Approximate), Expires: 10/22/2022[facility] Work Phone: Comment on above:Expected: 08/22/2022 (Approximate), Expires: 10/22/2022Start: 08-22-2022 End: 26-96-0936Tbxmkkf dehydrogenase [Enzymatic activity/volume] in Serum or PlasmaLD LACTATE DEHYDRO Lab Routine Lymphocytosis Expected: 08/22/2022 (Approximate), Expires: 10/22/2022[facility] Work Phone: Comment on above:Expected: 08/22/2022 (Approximate), Expires: 10/22/2022Start: 86-53-0280QBMTSDP DIRECTIVE DISCUSSIONADVANCE DIRECTIVE DISCUSSIONCleUniversity [facility] Medical Centertart: 34-97-1778AUXBQQSKPF ASSESSMENT DEPRESSION ASSESSMENTFisher-Titus Medical Centertart: 88-84-6375LZZYL-19 VACCINE (5 - Booster for Pfizer series)COVID-19 VACCINE (5 - Booster for Pfizer series) [facility]: 56-34-0758Nzvdm-19 Vaccine (5 - Pfizer series)Covid-19 Vaccine (5 - Pfizer series)[facility]: 65-03-2564Ormwiarzu vaccinationINFLUENZA (#1)[facility]ert[facility]: 32-45-3908CGIYKWH DIRECTIVE DISCUSSIONADVANCE DIRECTIVE DISCUSSIONFisher-Titus Medical Centertart: 06-22-2021 DEPRESSION ASSESSMENTDEPRESSION ASSESSMENTFisher-Titus Medical Centertart: 10-20-2014 SHINGRIX VACCINE (2 of 3)SHINGRIX VACCINE (2 of 3)[facility]: 33-20-6550DANK DENSITYBONE DENSITYFisher-Titus Medical Centertart: 03-38-2979Zxyf Density ScreeningBone Density ScreeningFisher-Titus Medical Centertart: 69-20-7149Sybrirfbizzh Vaccine: 65+ (1 - PCV)Pneumococcal Vaccine: 65+ (1 - PCV)[facility]: 85-96-9964Ziumrjfmdboe Vaccine: 65+ (1 of 1 - PCV)Pneumococcal Vaccine: 65+ (1 of 1 - PCV)[facility]art: 10-30-8839Bpxutzqbsaft Vaccine: 65+ Years (1 of 1 - PCV)Pneumococcal Vaccine: 65+ Years (1 of 1 - PCV)[facility] HospitalStart: 20-51-8482DMDHXHONZFOU: 65+ (1 - PCV)PNEUMOCOCCAL: 65+ (1 - PCV)[facility] Start: 09-34-0275Nbeinufxh for osteoporosisBone Density ScreeningFisher-Titus Medical Centertart: 56-31-5641CKVWBHSM VACCINE (1 of 2)SHINGRIX VACCINE (1 of 2) [facility]: 96-17-1253YLQQGYQSO (FIT-DNA)COLOGUARD (FIT-DNA)[facility]: 85-73-3432LonfouavefvISKMMCIBIOGTijrgawiz ClinicStart: 1994 COLORECTAL CANCER SCREENINGCOLORECTAL CANCER SCREENINGFisher-Titus Medical Centertart: 66-60-3774TA COLONOGRAPHYCT COLONOGRAPHYFisher-Titus Medical Centertart: 1994 DIABETES SCREENDIABETES SCREENFisher-Titus Medical Centertart: 77-15-7920PEVYA OCCULT BLOODFECAL OCCULT BLOODFisher-Titus Medical Centertart: 90-11-2096Nvrtd 1996 panel - Serum or PlasmaLipid ScreeningFisher-Titus Medical Centertart: 49-64-0139Qtecq panelLipid ScreeningFisher-Titus Medical Centertart: 93-54-1185ORLTQ SCREENLIPID SCREENFisher-Titus Medical Centertart: 18-04-7150Yjcehdimm for malignant neoplasm of colonDunlap Memorial Hospital Start: 88-69-9855TPRUQOFEMLACFKTACLDBOHQLVDZqkzidpku ClinicStart: 1989 MammographyFisher-Titus Medical Centertart: 54-33-6272Djhwsedsa for malignant neoplasm of breastMammogram ScreeningFisher-Titus Medical Centertart: 83-67-6986Ojgrc microalbumin profileFisher-Titus Medical Centertart: 57-34-3186Xfefdvm ScreeningAnxiety Screening [facility]ertart: 20-95-2712Ifyvafcorv ScreeningDepression Screening [facility]ertart: 89-39-7082EOOQRHCGG C SCREENINGHEPATITIS C SCREENING [facility]art: 49-15-6493Bjihnlnrk C screeningHepatitis C Screening [facility]ertart: 75-60-7895ZSTWA-19 VACCINE (#1)COVID-19 VACCINE (#1) [facility]ert[facility]: 85-70-2196Wexiiyfco for malignant neoplasm of colonNOCA Healthcare Lumbar spine WO [facility] - WestPatient EducationLow back pain in adultsKing'S Daughters [facility] [place] Work Phone: [facility] Immunizations Immunization DateImmunizationNotesCare BvxghkkuMopihujd23-68-7279Jrsvzuhq trivalent influenza vaccine, adjuvanted, preservative freeMelvin Guzman MD Work Phone: [facility] HospitalCtcvkq31-85-0466ckvhperoo virus vaccine, unspecified formulationMelvin Guzman MD Work Phone: [facility] HospitalIwzzpy45-47-1676dxtafxcgm (aIIV4) vaccine, age 65+ yr, quadrivalent, PF (FLUAD QUADRIVALENT)Melvin Guzman MD Work Phone: [facility] HospitalOxhlxf24-70-9628RUTNU-23 mRNA, Comirnaty (Pfizer)Jaqueline Charles MD Work Phone: [facility]02-03-2021COVID-19 mRNA, Comirnaty (Pfizer)Jaqueline Charles MD Work Phone: [facility]09-15-2020influenza virus vaccine, unspecified formulationJaqueline Charles MD Work Phone: [facility]09-15-2020Seasonal trivalent influenza vaccine, adjuvanted, preservative Venice Guzman MD Work Phone: [facility] HospitalJmevye40-94-8510Fbllsciz trivalent influenza vaccine, adjuvanted, preservative Venice Guzman MD Work Phone: [facility] HospitalBvveao18-66-8158dmvxiqaur virus vaccine, unspecified formulationJaqueline Charles MD Work Phone: [facility]10-25-2018influenza, high dose seasonal, preservative-freeMelvin Guzman MD Work Phone: [facility] HospitalYipaan52-03-8437hvcuewmoa, high dose seasonal, preservative-freeMelvin Guzman MD Work Phone: [facility] HospitalLbvaia48-17-2347wyvvuf vaccine, liveMelvin Guzman MD Work Phone: [facility] Payers DatePayer CategoryPayerPolicy [id number] Health InsuranceMEDICAL MUTUAL [id number] O MEDICARE SUPPLEMENT [id number] 2021-Present [phone] [address] [place] [address] [id number] 2014Medicare [id number] [id number] 1960 [id number] [id number] Social History DateTypeDetailFacilityStart: 73-12-9065Qjpbjim smoking status NHISEx-smoker [facility] HospitalHistory of tobacco useCurrent smokerDunlap Memorial HospitalHistory of tobacco useCigarette SmokerSumma Healthtory of tobacco usePassive smoker [facility]ertart: 06-06-2022 End: 26-81-8203Wndaajl use and exposureSmokeless tobacco non-userFisher-Titus Medical Centertart: 06-06-2022 End: 59-19-5429Khglbyl intakeCurrent drinker of alcohol (finding)[facility]ertart: 37-76-6456Pxk Assigned At BirthNot on fileFisher-Titus Medical Centertart: 06-24-2022 End: 55-01-4503Nudmgfz smoking status NHISNever smoked tobaccoDunlap Memorial Hospital Start: 06-24-2022 End: 93-19-2708Nikmaoh intakeEx-drinker (finding)[facility]ertart: 03-06-2023 End: 53-61-0517Olx Assigned At [facility] [employer] Other Start: 03-06-2023 End: 50-02-3013Zmrtqgw of Social functionDunlap Memorial HospitalNatatrium health [facility] Score (1-100), lower number is lower uzyj95ZfszvqtmtFisher-Titus Medical Centertart: 63-00-1781Kto assigned at [facility] CenterStart: 55-23-1633Zibnsv identityIdentifies as female gender (finding)[facility] HealthcareSexFemale (finding)[facility] Clinical Notes 06-24-2022 to 03-16-2025 Note Date & RyibPugaBexskdiu60-70-5778 NoteHNO ID: [id number] Author: SHANNA VICENTE MD Service: ? Author Type: Physician Type: Progress Notes Filed: 03/16/2025 11:52 Note Text: PATIENT NAME: Jose Alberto Godinez CLINIC NO.: [id number] ATTENDING PHYSICIAN: Shanna Vicente MD DATE OF SERVICE: 03/16/25 Some of the elements of this note have been copied from my previous progress note dated 03/17/24 . All the information has been reviewed carefully. Diagnosis: MLUS Treatment History: HPI: Jose Alberto Godinez is a 72 year old year old female here for follow up. Doing well and no complaints Updated visit 03/17/24: Doing well No major complaints Last mammo in Jun 2023. No B symptoms. 03/16/25: - Doing well - No major complaints - No B symptoms. - Mammogram in November 2024 at [facility]. PAST MEDICAL HISTORY Diagnosis Date Abnormal CBC [...] 71.0 % Final A (more content not included)...[facility]01-14-2025 History of Present illness Narrative* Lew Alexander, - 07/05/2024 8:30 AM EST Post op left FORTINO annual visit: The [...] exercise, weight management and fall precautions reviewed. custodial antibiotic prophylaxis for dental or invasive work were reviewed. Numerous questions were answered. Follow-up in 1 year for repeat xray and exam, sooner if concerned. The patient is discharged in stable condition. documented in this encounterChildren's Mercy HospitalJbuvuidawn67-81-2220 Instructions* Patient Instructions* Shanna Vicente MD - 03/17/2024 10:11 AM EDT Ordered labs F/u in 1 year. documented in this encounterDunlap [facility]09-26-[facility]24 History of Present illness Narrative* Shanna Vicente MD - 03/17/2024 10:00 AM EDT PATIENT NAME: Jose Alberto Godinez CLINIC NO.: [id number] ATTENDING PHYSICIAN: Shanna Vicente MD DATE OF SERVICE: March 17, 2024. Dear Dr. Mcdonald referring provider defined for this encounter. here is an update on a follow up visit on female Jose Alberto Godinez at the clinic 03/17/24. 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 Imaging: Assessment and Plan: Jose Alberto Godinez is a 72 year old year old female here for follow up. CBC today showed stable blood counts. Monitor the mild leukocytosis for now. MBL- Doing well and see back in 1 year. Thank you for the kind referral. If there are any questions and or concerns please do not hesitate to contact me at [phone]. Shanna Vicente MD Hematology/Medical Oncology [facility] spent a total of 20 minutes on the date of the service which included preparing to see the patient, qovk-mk-[id number] patient care, completing clinical documentation, obtaining and/or reviewing separately obtained history, performing a medically appropriate examination, counseling and educating the pat ient/family/caregiver, and ordering medications, tests, or procedures CC: Jaqueline Charles MD documented in this encounterDunlap [facility] Hospital09-23-2024 Telephone encounter Note * Telephone Encounter - Brianna Ratliff RN - 03/14/2024 10:49 AM EDT Labs pending if you agree. Brianna Ratliff RN [facility]09-23-[facility]24 Miscellaneous Notes* Telephone Encounter - Brianna Ratliff RN - 03/14/2024 10:49 AM EDT Labs pending if you agree. Brianna Ratliff RN documented in this encounterDunlap [facility] Hospital09-15-2023 History of Present illness Narrative* Melvin Guzman MD - 03/06/2023 3:17 PM EDT PATIENT NAME: Jose Alberto Godinez [facility] NO.: [id number] ATTENDING PHYSICIAN: Melvin Guzman MD DATE OF SERVICE: March 06, [address] Mcdonald referring provider defined for this encounter. 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 Imaging: Assessment and Plan: Jose Alberto Godinez is a 72 year old year old female here for follow up. MBL- Doing well and see back in 1 year Thank you for the kind referral. If there are any questions and or concerns please do not hesitate to contact me at [phone]. Melvin Guzman MD Hematology/Medical Oncology [facility] spent a total of 20 minutes on the date of the service which included preparing to see the patient, qypu-ow-zuvq patient care, completing clinical documentation, obtaining and/or reviewing separately obtained history, performing a medically appropriate examination, counseling and educating the pat ient/family/caregiver, and ordering medications, tests, or procedures CC: Jaqueline Charles MD documented in this encounterDunlap Memorial Hospital03-07-2023 History of Present illness Narrative* Nilda Cordova PA-C - 08/26/2022 3:00 PM EST PATIENT NAME: Jose Alberto Godinez [facility] NO.: [id number] ATTENDING PHYSICIAN: Melvin Guzman MD DATE OF SERVICE: August 26 2022 (Elements copied from Dr. Guzman's note dated June 24, 2022, have been reviewed and updated where appropriate, and all reflect current assessment and medical decision making during today's encounter, August 26, 2022) CHIEF COMPLAINT: I have abnormal blood count HPI: Jose Alberto returns for follow up for her lymphocytosis. [...] 165.1 cm (5' 5 ) Wt 72.5 kg(159 lb 12.8 oz) SpO2 97% BMI 26.59 [...] fL Preliminary PATH: IMAGING: ASSESSMENT AND PLAN: Jose Alberto Godinez is a 72 year old year [...] CC: Jaqueline Charles MD documented in this encounterDunlap [facility] Hospital02-17-2023 Evaluation note* Encounter Date Diagnosis Assessment Notes Treatment Notes Treatment Clinical Notes Jul, Lumbar degenerative disc disease (ICD-10 - M51.36) [email or web address] Other 02-16-2023 Evaluation note* Encounter Date Diagnosis Assessment Notes Treatment Notes Treatment Clinical Notes Jul, Cervical pain (neck) (ICD-10 - M 54.2) Discussed that she has failed many conservative measures. Will check XR. Gave order to pt for PT. Jul,Left sciatic nerve pain (ICD-10 - M54.32)Add steroids to replace NSAIDs temporarily. Has tried chiropractor, massage, walking, stretching, NS AIDs, heat and ice. [email or web address] Other 01-03-2023 History of Present illness Narrative* Melvin Guzman MD - 06/24/2022 11:36 AM EST PATIENT NAME: Jose Alberto Godinez CLINIC NO.: [id number] ATTENDING PHYSICIAN: Melvin Guzman MD DATE OF SERVICE: June 24, [address] Jaqueline Charles thank you for referring Mrs Jose Alberto Godinez for an opinion regarding Lymphocytosis. CHIEF COMPLAINT: I have abnormal blood count HPI: Jose Alberto Godinez is a 72 year old year [...] BASOP, ABSBASO PATH: IMAGING: ASSESSMENT AND PLAN: Jose Alberto Godinez is a 72 year old year old female with history of HTN and absloute lymphocytosis. 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 Discussed the natural history and significance of MLUS as well. See back in 2 weeks with repeat CBC Dear Dr. Jaqueline Charles thank you for allowing me to participate in Mrs. Jose Alberto Godinez care, if there are any questions or concerns please do not hesitate to contact me at the number below. Melvin Guzman M.D. Hematology/Medical Oncology [facility] [place] [phone] CC: Jaqueline Charles MD [facility]* Diagnosis Lymphocytosis- Primary Lymphocytosis (symptomatic) documented in this encounter [facility] note* Diagnosis Lymphocytosis- Primary Lymphocytosis (symptomatic) documented in this encounter [facility] noteNo InformationNoVeterans [facility] Other Evaluation note* Diagnosis Lymphocytosis- Primary Lymphocytosis (symptomatic) documented in this encounter [facility] note* Diagnosis Lymphocytosis- Primary Lymphocytosis (symptomatic) documented in this encounter [facility] note* Diagnosis History of total left hip replacement- Primary [facility]* Diagnosis Onset Date Resolution Status Admit Date Lumbar pain with radiation down leg acuteOctober 2024 8:24amParesthesia of right lower extremityacuteOctober 2024 8:24am [facility] [place] Work Phone: History general Narrative - Reported* Type Description Date Medical History Cervical paraspinal muscle spasm Medical HistoryAbnormal CBCMedical HistoryDiverticulitisMedical HistoryAbnormal ECGMedical HistoryEssential hypertensionMedical HistoryArthritis of left hip Medical HistoryOther contact with and (suspected) exposures hazardous to health Surgical HistoryAPPENDECTOMYSurgical HistoryRIGHT OVARY [id number] HistoryLAP HYSTERECTOMY WITH L OOPHHospitalization HistorySEE SURGICAL HX [facility] Other Reason for referral (narrative)No reason for referral information availableKing'S D[facility] [place] Work Phone: Summary Purpose Family History Relationship Condition Age at Onset Recorded Date/T jose father Hypertension Unknown motherMalignant neoplasmUnknown Advance Directives Advance Directive Response Recorded Date/ Time Advance Directives No August 23 11:04am Chief Complaint and Reason for Visit Chief Complaint Admit Date Amb Documentation April 04, 2025 1 0:15am [facility] ER f/u April 11, 2025 8 :24am Reason for Visit Admit Date Lumbar pain with radiation down leg Octo 2024 8:24am Paresthesia of right lower extremity Oct francisco2024 8:24am Additional Source Comments INFORMATION SOURCE (unrecogn ized section and content) DATE CREATED AUTHOR 09/06/2021 [facility] [employer] DATE CREATED AUTHOR AUTHOR'S ORGANIZ ATION 08/19/2022 [facility] DATE CREATED AUTHOR AUTHOR'S ORGANIZ ATION 07/08/2024 [facility] DATE CREATED AUTHOR AUTHOR'S ORGANIZ ATION 10/19/2024 [facility] DATE CREATED AUTHOR AUTHOR'S ORGANIZ ATION 03/17/2025 [facility] Source Comments (unrecognize d section and content) In the event this informatio n is protected by the Federal Confidentiality of Alcohol and Drug Abuse Patient Records regulations: The Federal rules restrict any use of the information to criminally investigate or prosecute any alcohol or drug abuse patient.[facility] HospitalIn the event this information is protected by the Federal Confidentiality of Alcohol and Drug Abuse Patient Records regulations: The Federal rules restrict any use of the information to criminally investigate or prosecute any alcohol or drug abuse patient.[facility] HospitalIn the event this information is protected by the Federal Confidentiality of Alcohol and Drug Abuse Patient Records regulations: The Federal rules restrict any use of the information to criminally investigate or prosecute any alcohol or drug abuse patient.[facility] HospitalIn the event this information is protected by the Federal Confidentiality of Alcohol and Drug Abuse Patient Records regulations: The Federal rules restrict any use of the information to criminally investigate or prosecute any alcohol or drug abuse patient.[facility] HospitalIn the event this information is protected by the Federal Confidentiality of Alcohol and Drug Abuse Patient Records regulations: The Federal rules restrict any use of the information to criminally investigate or prosecute any alcohol or drug abuse patient.[facility] HospitalIn the event this information is protected by the Federal Confidentiality of Alcohol and Drug Abuse Patient Records regulations: The Federal rules restrict any use of the information to criminally investigate or prosecute any alcohol or drug abuse patient.[facility] Care Teams (unrecognized sec tion and content) Team MemberRelationshipSpecialtyStart DateEnd Jaqueline Díaz, MD [address] [facility] [place] [phone] PCP - GeneralFamily Ofgyitav77/14/22Team MemberRelationshipSpecialtyStart Date End Date Jaqueline Charles MD [address] [facility] [place] [address] PCP - GeneralFamily Rczytfwa11/14/22Team MemberRelationshipSpecialtyStart Date End Date Jaqueline Charles MD [address] [facility] [place] [address] PCP - GeneralFamily Jqysvita78/14/22Team MemberRelationshipSpecialtyStart Date End Date Jaqueline Charles MD [address] [facility] [place] [address] PCP - GeneralFamily Pknccdzu08/14/22Team MemberRelationshipSpecialtyStart Date End Date Jaqueline Charles MD [address] [facility] [place] [address] PCP - GeneralFamily Spiryofp70/14/22Team MemberRelationshipSpecialtyStart Date End Date Jaqueline Charles MD [address] [facility] [place] [address] PCP - GeneralFamily Ceomfqpy76/14/22Team MemberRelationshipSpecialtyStart Date End Date Jaqueline Charles MD [address] [facility] [address] PCP - GeneralFamily Medicine07/02/23 Team Status: Active Member Role/Relationship Status Dates Robert Frenchdleston , Specialist Active JENNY Redmanriterriy Care ProviderActive Team Status: Active Member Role/Relationship Status Dates Jaqueline Charles MD Primary Care Provider Active Start: March 16, 2025 Shanna Vicente , MDAttending ProviderActiveStart: March 16, 2025 Team Status: Active Member Role/Relationship Status Dates Jaqueline Charles MD Primary Care Provider Active Start: March 31, 2025 Marcelo Vianey Bardales , DOAttending ProviderActiveStart: March 31, 2025 Team Status: Active Member Role/Relationship Status Dates Jaqueline Charles MD Primary Care Provider Active Start: April 04, 2025 Juana Brant , CMAAttending ProviderActiveStart: April 04, 2025 Team Status: Inactive Member Role/Relationship Status Dates Jaqueline Charles MD Primary Care Provider Active Start: April 11, 2025 End: April 11, 2025Jaqueline Charles MDAttdomingo ProviderActiveStart: April 11, 2025 End: April 11, 2025 Reason for Visit (unrecogniz ed section and content) ReasonCommentsLymphocytosisFollow upReasonCommentsLymphocytosisReasonComments Transition Of CareReasonCommentsFollow-upLt FORTINO 07/10/20 [facility] [place] bursitis AM Goals (unrecognized section and content) Goals may be documented in a n alternate section FOR RECORDS PERTAINING TO PATIENTS WHO ARE [...] BE BASED ON THE PRIMARY CLINICAL RECORDS. [facility] [employer] provides no warranty or guarantee of the accuracy or completeness of information in this document.
--- OUTSIDE RECORDS SUMMARY | 2025-04-20 09:26 | XMS_ITS | Clinical Summary ---
Author Organization [facility] Address [address] [place] [address] Care Team Providers Care Memorial Marker Designer Name Role Phone Jaqueline Sierra MD Primary Care Provider [phone] Allergies Active AllergyReactionsCriticalityNoted DateCommentsFish Hbgvnxz3106/06/2022 Other Reaction(s): Unknown LvwfxdJrmbuve01/20/2014 Drugs containing iodine Penicillin BWwnal0807/02/2023 Medications MedicationSigDispense QuantityRefillsLast FilledStart DateEnd DateStatus losartan (Cozaar) 25 MG tablet Take 25 mg by mouth in the morning.Active metoprolol succinate XL (Toprol-XL) 50 MG 24 hr tablet Take 50 mg by mouth in the morning.05/23/2023ctive aspirin 81 MG EC tablet Take 81 mg by mouth 1 (one) time each day at the same timeActive clindamycin (Cleocin) 300 MG capsule Indications:History of total left hip replacementTake two caps one prior to appointment 2 capsule ctive Additional Information Patient not taking.Reported on 07/05/2024 Active Problems No known active problems Social History Tobacco UseTypesPacks/DayYears UsedDateSmoking Tobacco: NeverSmokeless Tobacco: NeverAlcohol UseStandard Drinks/WeekCommentsYes1 (1 standard drink = 0.6 oz pure alcohol)CommentsUnknownSex and Gender InformationValueDate RecordedSex Assigned at CampeQfktyv14/04/2024 4:41 PM ESTLegal CnxJyxqwd91/15/2023 11:06 PM EDTGender TndagfyfZvzpoo28/04/2024 4:41 PM ESTSexual OrientationNot on file Last Filed Vital Signs Vital SignReadingTime TakenCommentsBlood Pxlikjts340/8203/03/2022 12:00 PM EST Pulse--Intlnaypogy35.7 ??C (98 ??F)07/02/2023 8:27 AM ESTRespiratory Rate-- Oxygen Saturation--Inhaled Oxygen Concentration--Apgcev21.8 kg (165 lb) 07/05/2024 8:20 AM RFTToacom352.6 cm (5' 6 )07/05/2024 8:20 AM ESTBody Mass Index26.63007/05/2024 8:20 AM EST Plan of Treatment Health MaintenanceDue DateLast DoneCommentsPneumococcal Vaccine: 65+ Years (1 of 1 - PCV)1999Influenza Vaccine (#1), 03/24/2023, 04/18/2022, Additional history exists Insurance * Guarantor: Moira Godinez AAccount TypeRelation to PatientDate of PhoneBilling AddressPersonal/BwltgnLedl[id number] [phone] Care Teams Team MemberRelationshipSpecialtyStart DateEnd Jaqueline Sierra MD PCP - GeneralFamily Medicine07/02/23
--- OUTSIDE RECORDS SUMMARY | 2025-04-20 09:26 | XMS_ITS | Clinical Summary ---
Author Organization [facility] Address [address] [place] [address] Care Team Providers Care Utilization Review Rn Name Role Phone Jaqueline Sierra MD Primary Care Provider [phone] Allergies Active AllergyReactionsCriticalityNoted DateCommentsFish Containing Products Llgfhxb3006/06/20229974CnpmacTpjxsfn80/20/2014 Drugs containing iodine Penicillin SRvrycmx35/16/2022 Medications MedicationSigDispense QuantityRefillsLast FilledStart DateEnd DateStatus losartan (COZAAR) 25 mg tablet Take 25 mg by mouth once daily.05/24/2022ctive metoprolol succinate ER (TOPROL XL) 50 mg 24 hr tablet Take 50 mg by mouth once daily.05/24/2022ctive Active Problems No known active problems Encounters DateTypeDepartmentCare QfhtJkkdbwqrkht71/25/2025 10:20 AM EDTVisit (SP) Office Hematology/Oncology [address] [place] [address] [place] [address] Krishna Real MD Lymphocytosis (Primary Dx)03/16/2025Travelfrom Last 3 Months Immunizations ImmunizationAdministration DatesNext Dueinfluenza (HD-IIV3) vaccine, age 65+ yr, high dose, trivalent, PF (FLUZONE HIGH-DOSE)04/15/2018,05/21/2017influenza (aIIV3) vaccine, age 65+ yr, trivalent, PF (FLUAD)04/18/2022,03/06/2020, 04/05/2019influenza (aIIV4) vaccine, age 65+ yr, quadrivalent, PF (FLUAD QUAD) 04/18/2021zoster (ZVL) vaccine, live (ZOSTAVAX)08/25/2014 Family History Medical HistoryRelationCommentsCoronary Artery DiseaseFatherHypercholesterolemia FatherHypertensionFatherRelationStatusCommentsFatherDeceasedMotherDeceased Social History Tobacco UseTypesPacks/DayYears UsedDateSmoking Tobacco: NeverPassive Smoke Exposure: PastSmokeless Tobacco: Never Tobacco Cessation:Counseling Given: Not Answered Alcohol UseStandard Drinks/WeekCommentsNot Currently0 (1 standard drink = 0.6 oz pure alcohol)Area Deprivation IndexAnswerDate RecordedNational Score (1-100), lower number is lower srlk799503/06/2023State Score (1-10), lower number is lower zdce3073Data from: https://www.neighborhoodatlas.medicine.[facility].edu/. Last address used for m[address]ct[address] 3CommentsNoSex and Gender InformationValueDate RecordedSex Assigned at BirthNot on fileLegal AvlWvnzyg91/14/2022 1:10 PM ESTGender IdentityNot on fileSexual OrientationNot on file Last Filed Vital Signs Vital SignReadingTime TakenCommentsBlood Hfietyfn807/8109 10:25 AM EDT Bhqjx4478/25/2025 10:25 AM PDYPedornxdgno61.5 ??C (97.7 ??F)03/16/2025 10:25 AM EDTRespiratory Qrnq989203/16/2025 10:25 AM EDTOxygen Yjlcdyoizv45%03/16/2025 10:25 AM EDTInhaled Oxygen Concentration--Teehyn16.3 kg (159 lb 6.3 oz)03/16/2025 10:25 AM HRUUehbmt459.1 cm (5' 5 )03/06/2023 3:17 PM EDTBody Mass Index26.52 03/06/2023 3:17 PM EDT Plan of Treatment DateTypeDepartmentCare Team (Latest Contact Info)Jfetbismlfa59/01/2026 11:15 AM EDTOffice Visit [facility] [address] [place] [address] [place] [address] 1 year follow up with lab03/22/2026 11:30 AM EDTVisit (SP) Office Hematology/Oncology [address] [place] [address] [place] [address] Shantelle Fontana APRN.[facility] [address] [facility] [place] [address] 1 year follow up with labHealth MaintenanceDue DateLast DoneCommentsAnxiety Mbdqcwdvl16/11/1967Depression Jotxcjuip43/11/1967Hepatitis C Eutghqhpq71/11/1967 DTaP,Tdap,Td Vaccine (1 - Tdap)1968Pneumococcal Vaccine: 50+ (1 of 1 - PCV)1999Medicare Annual Wellness Visit03/22/2014one Density Screening 2014Shingrix Vaccine (2 of 3)RSV Vaccine (1 - 1-dose 75+ series)2024dvance Directive Jcbwridffo52/01/2025Covid-19 Vaccine ( - season)/, 05/06/2021, 08/15/2020, Additional history existsInfluenza Vaccine (#1), 04/18/2021, 03/06/2020, Additional history existsDiabetes Ezekhlbzk39, 03/17/2024, 03/06/2023, Additional history exists Procedures Procedure NamePriorityDate/TimeAssociated DiagnosisCommentsLD LACTATE DEHYDRO Ppdqsqn7803/16/2025 10:51 AM EDT Lymphocytosis COMPREHENSIVE METABOLIC YWEQGCbfjkgu48/25/2025 10:51 AM EDT Lymphocytosis CBC + AZUHAjnnkdw09/25/2025 10:51 AM EDT Lymphocytosis from Last 3 Months Results * (ABNORMAL) LACTATE DEHYDROGENASE (03/16/2025 10:51 AM EDT)ComponentValueRef RangeTest MethodAnalysis TimePerformed AtPathologist RlssyjzwkQU096(H)135 - 214 U/L03/16/2025 11:[address] LABSpecimen (Source)Anatomical Location / LateralityCollection Method / VolumeCollection TimeReceived TimeBloodBLOOD SPECIMEN / UnknownVenipuncture / Ulmwecb7203/16/2025 10:51 AM EDT03/16/2025 10:51 AM EDT Narrative Authorizing ProviderResult TypeResult StatusAdarsh Ellisepureddy MDLABORATORY Final ResultPerforming OrganizationAddressCity/State/ZIP CodePhone Number [facility] [address] [place] [address] * (ABNORMAL) COMPREHENSIVE METABOLIC PANEL (03/16/2025 10:51 AM EDT)Component ValueRef RangeTest MethodAnalysis TimePerformed AtPathologist Signature Protein, Total7.06.3 - 8.0 g/dL03/16/2025 11:35 AM [facility] LABAlbumin4.63.9 - 4.9 g/dL03/16/2025 11:35 AM [facility] LABCalcium, Total9.88.5 - 10.2 mg/dL03/16/2025 11:35 AM [facility] LABBilirubin, Total0.40.2 - 1.3 mg/dL 03/16/2025 11:35 AM [facility] LABAlkaline Binxyeebybc797(H)34 - 123 U/L03/16/2025 11:35 AM [facility] THHZKD9889 - 35 U/L03/16/2025 11:35 AM [facility] LWRBZX547 - 38 U/L03/16/2025 11:35 AM [facility] DXPQqhhgef222(H)74 - 99 mg/dL03/16/2025 11:35 AM [facility] LABComment: The [place] Diabetes Association (ADA) provides guidance for [...] Standards of Medical Care in Diabetes 2016, [place] [employer]. Diabetes Care. 2016.39(Suppl 1). HOK082 - 21 mg/dL03/16/2025 11:35 AM [facility] Creatinine0.52(L)0.58 - 0.96 mg/dL03/16/2025 11:35 AM [facility] GOBTrizou740114 - 144 mmol/L03/16/2025 11:35 AM [facility] LABPotassium4.23.7 - 5.1 mmol/L03/16/2025 11:35 AM T [facility] XAIXmtbdyew71243 - 107 mmol/L03/16/2025 11:35 AM [facility] VJSVH53729 - 30 mmol/L03/16/2025 11:35 AM [facility] LABAnion Tes885 - 15 mmol/L03/16/2025 11:35 AM [facility] LABEstimated Glomerular Filtration Rate97>=60 mL/min/1.73m 03/16/2025 11:35 AM [facility] LABComment:Estimated Glomerular Filtration Rate (eGFR) is calculated using the 2020 CKD-EPI creatinine equation. This equation utilizes serum creatinine, sex, and age as parameters. The creatinine assay has traceable calibration to isotope dilution- mass spectrometry. Refer to KDIGO guidelines for clinical interpretation. In patients with unstable renal function, e.g. those with acute kidney injury, the eGFRmay not accurately reflect actual GFR.Specimen (Source)Anatomical Location / LateralityCollection Method / VolumeCollection TimeReceived TimeBloodBLOOD SPECIMEN / UnknownVenipuncture / Eypuvsq2403/16/2025 10:51 AM EDT03/16/2025 10:51 AM EDT Narrative Authorizing ProviderResult TypeResult StatusAdars Cinthia MDLABORATORY Final ResultPerforming OrganizationAddressCity/State/ZIP CodePhone Number [facility] [address] [place] [address] * (ABNORMAL) COMPLETE BLOOD COUNT AND DIFFERENTIAL (03/16/2025 10:51 AM EDT) ComponentValueRef RangeTest MethodAnalysis TimePerformed AtPathologist SktduxtldMVX03.31(H)3.70 - 11.00 k/uL03/17/2025 2:14 AM EDTNORTCARO CENTER LABRBC4.173.90 - 5.20 m/uL03/17/2025 2:14 [facility] TWTAfbtmukbml02.411.5 - 15.5 g/dL03/17/2025 2:14 AM EDT [facility] HSXVmlocdxwhl26.336.0 - 46.0 %03/17/2025 2:14 AM EDTNORTCARO CENTER NLPXVL37.280.0 - 100.0 fL 03/17/2025 2:14 AM [facility]TNOR[facility] VNRSIL47.126.0 - 34.0 pg03/17/2025 2:14 AM EDTNORTC[facility]O [facility]ENTER BGHXOTB86.130.5 - 36.0 g/dL03/17/2025 2:14 AM [facility] LABRDW-CV12.3 11.5 - 15.0 %03/17/2025 2:14 AM [facility]TNOR[facility] LAB Platelet Uydxb329341 - 400 k/uL03/17/2025 2:14 AM [facility]TNOR[facility] YVFSRN24.09.0 - 12.7 fL03/17/2025 2:14 AM [facility]TNOR[facility] LABNRBC0.0/100 WBC03/17/2025 2:14 AM EDTC[facility] LABAbsolute nRBC<0.01<0.01 k/uL09/ 2:14 AM EDTCSELECT [facility] LABNeutrophils %27.1%03/17/2025 2:14 AM [facility] LABAbs Neut (Segs + Bands)4.151.45 - 7.50 /03/17/2025 2:14 AM EDT [facility] LABLymphocytes %71.5%03/17/2025 2:14 AM EDT [facility] LABAbs Lymph (Normal + Reactive)10.95(H)1.00 - 4.00 k/03/17/2025 2:14 AM EDTCSELECT [facility] LABMonocytes %0.7% 03/17/2025 2:14 AM [facility] LABAbs Mono0.11<0.87 k/uL 03/17/2025 2:14 AM [facility] LABEosin%0.0%03/17/2025 2:14 AM [facility] LABAbs Eosin0.00<0.46 k/03/17/2025 2:14 AM [facility] LABBasophils %0.7%03/17/2025 2:14 AM [facility] LABAbs Baso0.11(H)<0.11 /03/17/2025 2:14 AM [facility] LABPlatelet CrscsxwqLyvfetnu29/26/2025 2:14 AM [facility] LABRed Cell MorphReviewed: see results of individual zesqvrqyreii07/26/2025 2:14 AM [facility] XuossuimmjSaj52/26/2025 2:14 AM [facility] LABDiff Type Shqstr0103/17/2025 2:14 AM [facility] LABSpecimen (Source) Anatomical Location / LateralityCollection Method / VolumeCollection Time Received TimeBloodBLOOD SPECIMEN / UnknownVenipuncture / Kwxwrbg9403/16/2025 10:51 AM EDT03/16/2025 10:51 AM EDT Narrative [facility] - 03/17/2025 2:14 AM EDT ANC=3.65 The following results were reported as preliminary values due to instrument flagging. Interpret with caution. Final results may vary. Results requested and read back by: DR REAL [facility] 03/16/2025 1056 AWHITE This is an appended report. ??These results have been appended to a previously verified report. Authorizing ProviderResult TypeResult StatusAdarsector Real MDLABORATORY Final ResultPerforming OrganizationAddressCity/State/ZIP CodePhone Number [facility] [address] [facility] [address] [place] [address], [facility] [address] [place] [address] from Last 3 Months Insurance [address] [place] [address] Care Teams Team MemberRelationshipSpecialtyStart DateEnd Date Jaqueline Sierra MD [address] [facility] [place] [address] PCP - GeneralFamily Uisgycoj03/14/22
== END 2025-04-20 09:23 | disposition home or self-care (01) ==
LOC: MRI 09:22
PROVIDERS: PCP Family Medicine; Visit Provider Family Medicine
DX: R20.2 Paresthesia of skin (principal); M54.50 Low back pain, unspecified; M79.606 Pain in leg, unspecified; M47.816 Spondylosis without myelopathy or radiculopathy, lumbar region; M54.16 Radiculopathy, lumbar region
CPT/HCPCS: 72148